=== PATIENT | female | born 2000 | race Caucasian/White ===

== ENCOUNTER 2023-03-17 12:05 | Emergency (ER) | payer BC, SELFPAY ==
[2023-03-17] VITALS (17 sets, daily range): BP systolic 86–111; BP diastolic 49–83; PULSE 74–88; RESP 17–33; TEMP 36.7; O2SAT 94–100; BMI 25.1
--- NOTE | 2023-03-17 12:12 | ECG_ITS ---
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
--- NOTE | 2023-03-17 12:15 | XR_ITS ---
The [address] [address] Patient Name: DORIS JOHNS MRN: [id number] date: 2000 Sex: F Assigned Patient Location: ER Current Patient Location: ED.MAIN Accession/Order Number: [id number] Exam Date: 03/17/2023 12:35 Report Date: 03/17/2023 12:57 At the request of: BG REID Procedure: XR chest 2V EXAM: XR chest 2V HISTORY: SYNCOPE COMPARISON: None TECHNIQUE: PA and lateral views of the chest were obtained. FINDINGS: Heart and mediastinal contours are unremarkable in appearance. No acute infiltrate or consolidations are seen. No obvious pneumothorax. Mild prominence of bronchovascular markings most likely artifactually created, correlate for possible mild bronchitis. Stabilizing rods and screws at the mid and lower thoracic levels extending to the upper lumbar spine. Mild convexity of the thoracic spine to the right. Powerpack noted on the left anteriorly. XR/XR chest 2V IMPRESSION: Mild prominence of bronchovascular markings most likely artifactually created, correlate for possible mild bronchitis. Electronically authenticated by: TIERA BUSTAMANTE Date: 03/17/2023 12:57
--- NOTE | 2023-03-17 12:17 | ED.GENADUL1 ---
HPI - General Adult General Chief complaint: Syncope Stated complaint: SYNCOPE Time Seen by Provider: 03/17/23 12:15 Source: patient Mode of arrival: Wheelchair Limitations: no limitations History of Present Illness HPI narrative: Patient is a 22-year-old female Who is presenting to the Emergency Room with chief complaint of a syncopal/near syncopal episode in the [place] after cardiology appointment today. Patient had a cardiology appointment today, patient was leaving the appointment walking in the [place] and had a near syncopal versus syncopal episode where she was slowly lowered to the ground. Patient was pale. She did not fall and hit her head. She has no headache, chest pain or shortness of breath. Patient was just placed on a 30 day event monitor. Patient is a college student. No recent head trauma. Patient stated that she did have abnormal dysfunctional uterine bleeding for a month, daily, but she missed a few days of her control pills and she waiting for new prescription to come in. However patient stated the bleeding was smaller amounts daily, not excessive daily to cause anemia. Patient has no urinary frequency or urgency or burning. Patient did not believe that she is . Patient's grandmother is at bedside, grandmother went to the appointment with her. Patient has no dull pain, nausea or vomiting or any other acute complaints this time. Patient 3-6 months ago starting having several passing out episodes for unknown reason. 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 Patient wouuld sometimes pass out from giving blood, but is become more frequent recently. All systems are negative except as noted/marked. All systems reviewed and otherwise negative. . Nurses note and vital signs reviewed and patient is not hypoxic. General: The patient appears well and in no apparent distress. Patient is resting comfortably on cart. Patient is not toxic, lethargic, or listless Skin: Warm, dry, no pallor noted. There is no rash noted. No petechiae, purpura. Head: Normocephalic, atraumatic Eye: Normal conjunctiva, no drainage, EOMI. PERRL Ears, Nose, Mouth, and Throat: oral mucosa is moist. Nares patent. Mouth without vesicles. Cardiovascular: Regular Rate and Rhythm, no murmur, gallop, rub Respiratory: Patient is in no distress, no accessory muscle use, lungs are clear to auscultation, no wheezing, rales or rhonchi Back: non-tender, no CVA tenderness bilaterally to percussion. No CT LS midline pain GI: soft, no tenderness to palpation, no masses appreciated. No rebound, guarding, or rigidity noted. No flank pain bilateral, No distention Musculoskeletal: Patient has full range of motion of all of the extremities, no motor, sensory, or focal neurological deficits Neurological: A&O x3, normal speech Psychiatric: Cooperative Related Data Allergies Allergy/AdvReac Type Severity Reaction Status Date / Time No Known Drug Allergies Allergy Verified 03/17/23 12:10 [facility] Social History Smoking status: Never smoker Exam Constitutional Vital Signs, click to edit/add: Last Vital Signs Temp 98.0 F 03/17/23 12:10 Pulse 78 03/17/23 14:01 Resp 18 03/17/23 14:01 BP 104/70 03/17/23 14:01 Pulse Ox 99 03/17/23 14:01 O2 Del Method Room Air 03/17/23 12:10 Course Vital Signs Vital signs: Vital Signs Blood Pressure 86/49 L 03/17/23 12:09 Temperature 98.0 F 03/17/23 12:10 Pulse Rate 78 03/17/23 14:01 Respiratory Rate 18 03/17/23 14:01 Blood Pressure 104/70 03/17/23 14:01 Pulse Oximetry 99 03/17/23 14:01 Oxygen Delivery Method Room Air 03/17/23 12:10 Medical Decision Making MDM Narrative Medical decision making narrative: When patient arrived, I did speak to the nurse practitioner, Dawit Foster NP. Patient just had a 30 day event monitor placed. Recommendations were of all testing were negative, patient will continue with outpatient testing and then follow-up with PCP and battery assembler plastic. Patient will have a tilt table test ordered as well, and patient will follow-up with the battery assembler plastic Dr. Pandya in 8 weeks. Patient thyroid-stimulating hormone was elevated, I did order a free T3 and a free T4 to help with patient's ongoing workup. Patient sees Dr. Norman. Patient is comfortable going home, she feels better after 1 L of IV fluid. Patient's orthostatics were negative. Patient does not have any significant signs of anemia. Patient will continue with outpatient testing. No questions at discharge. Patient goes back to school tomorrow. Lab Data Lab results reviewed: Yes I reviewed the patient's lab results Labs: Lab Results 03/17/23 Range/Units 12:13 WBC 11.0 (4.0-11.0) 10^3/uL RBC 4.50 (4.20-5.40) 10^6/uL Hgb 13.3 (12.0-16.0) g/dL Hct 40.7 (36.0-48.0) % MCV 90.4 (81.0-99.0) fL MCH 29.6 (26.7-34.0) pg MCHC 32.7 (29.9-35.2) g/dL RDW 12.1 (11.0-15.0) % Plt Count 408 (150-450) 10^3/uL MPV 10.0 (9.5-13.5) fL Seg Neuts % (Manual) 29.0 Lymphocytes % (Manual) 61.0 H (20.5-60.0) % Atypical Lymphs % (Man) 4.0 % Monocytes % (Manual) 5.0 (1.7-12.0) % Eosinophils % (Manual) 1.0 (0.9-7.0) % Basophils % (Manual) 0.0 L (0.2-2.0) % Neutrophils # (Manual) 3.19 (1.4-6.5) 10^3/uL Lymphocytes # (Manual) 6.71 H (1.20-3.80) 10^3/uL Abs Atypical Lymphs Man 0.44 Monocytes # (Manual) 0.55 (0.30-0.80) 10^3/uL Eosinophils # (Manual) 0.11 (0.00-0.70) 10^3/uL Basophils # (Manual) 0.00 (0.00-0.10) 10^3/uL D-Dimer <0.19 (<=0.59) mg/L FEU Sodium 140 (136-145) mmol/L Potassium 3.3 L (3.5-5.1) mmol/L Chloride (98-107) mmol/L Carbon Dioxide 27.2 (21.0-32.0) mmol/L Anion Gap 13.1 BUN 14.0 (7.0-18.0) mg/dL Creatinine 0.74 (0.55-1.02) mg/dL Est GFR ( Amer) >60 (>=60) Est GFR (Non-Af Amer) >60 (>=60) BUN/Creatinine Ratio 18.9 Glucose 108 H (74-106) mg/dL Calcium 9.4 (8.5-10.1) mg/dL Total Bilirubin 0.4 (0.2-1.0) mg/dL AST 23 (15-37) U/L ALT 33 (14-59) U/L Alkaline Phosphatase 78 (46-116) U/L Troponin I High Sens 10.4 (4.0-51.3) pg/mL NT-Pro-B Natriuret Pep 25.0 (<=450.0) pg/mL Total Protein 7.0 (6.4-8.2) g/dL Albumin 3.5 (3.4-5.0) g/dL Globulin 3.5 g/dL Albumin/Globulin Ratio 1.0 TSH 3.820 H (0.358-3.740) uIU/mL Free T4 1.04 (0.76-1.46) ng/dL Free T3 3.51 (2.18-3.98) pg/mL Education on elevated thyroid-stimulating hormone and the possibility of euthyroid was discussed. Patient's free T3 and free T4 not back yet prior to discharge. Patient was aware to follow-up with PCP for additional testing and follow-up on thyroid studies. ECG Data Attestation: I personally reviewed and interpreted this ECG as follows: (EKG interpretation. Normal sinus rhythm at 78 beats a minute. Normal axis deviation. No acute ST elevation, no acute ectopy. QTC of 441) Discharge Plan Discharge Chief Complaint: Syncope Clinical Impression: Vasovagal syncope, Dehydration, mild, Hypokalemia Patient Disposition: Home, Self-Care Time of Disposition Decision: 14:16 Condition: Fair Instructions: Dehydration (ED), Potassium Content of Foods List (ED), Hypokalemia (ED), Syncope (ED), Tilt Table Test (DC) Additional Instructions: Continue to increase fluids at home, Gatorade or Powerade. Started taking woman's One-A-Day multivitamin Continue following up with cardiology. Stand Alone Forms: Portal Instructions Referrals: Bobbi Norman MD [Primary Care Provider] - 1 week Discharge Date/Time: 03/17/23 14:33
[2023-03-17] MEDS: 0.9 % SODIUM CHLORIDE 1,000 ML 1000 ML IV (12:29)
[2023-03-17 12:44] LABS: Hematocrit 40.7 % (36.0-48.0); Hemoglobin 13.3 g/dL (12.0-16.0); Mean Corpuscular HGB Conc 32.7 g/dL (29.9-35.2); Mean Corpuscular Hemoglobin 29.6 pg (26.7-34.0); Mean Corpuscular Volume 90.4 fL (81.0-99.0); Platelet Count 408 10^3/uL (150-450); Red Cell Distribution Width 12.1 % (11.0-15.0)
[2023-03-17 13:04] LABS: D Dimer <0.19 mg/L FEU (<=0.59)
[2023-03-17 13:08] LABS: Atypical Lymphocytes Abs Man 0.44; Eosinophils Absolute Manual 0.11 10^3/uL (0.00-0.70); Lymphocytes Absolute Manual 6.71 10^3/uL (1.20-3.80); Monocytes Absolute Manual 0.55 10^3/uL (0.30-0.80); Segmented Neut Absolute Manual 3.19 10^3/uL (1.4-6.5)
[2023-03-17 13:13] LABS: Alanine Aminotransferase 33 U/L (14-59); Albumin Level 3.5 g/dL (3.4-5.0); Alkaline Phosphatase 78 U/L (46-116); Aspartate Amino Transferase 23 U/L (15-37); BUN Creatinine Ratio 18.9; Bilirubin Total 0.4 mg/dL (0.2-1.0); Calcium 9.4 mg/dL (8.5-10.1); Carbon Dioxide 27.2 mmol/L (21.0-32.0); Estimated GFR (African America >60 (>=60); Estimated GFR (Non-African Ame >60 (>=60); Globulin 3.5 g/dL; Glucose 108 mg/dL (74-106); Potassium 3.3 mmol/L (3.5-5.1); Sodium 140 mmol/L (136-145); Troponin I High Sensitivity 10.4 pg/mL (4.0-51.3)
[2023-03-17] MEDS: POTASSIUM BICARBONATE/CIT 25 MEQ TABLET EFF 50 MEQ PO (14:00)
[2023-03-17 14:31] LABS: Anion Gap 13.1
[2023-03-17 16:00] LABS: Free T3 3.51 pg/mL (2.18-3.98)
[2023-03-17 16:39] LABS: Free T4 1.04 ng/dL (0.76-1.46)
== END 2023-03-17 14:33 | disposition home or self-care (01) ==
PROVIDERS: Emergency Provider Emergency Medicine; PCP Family Medicine
DX: R55 Syncope and collapse (principal); E86.0 Dehydration; E87.6 Hypokalemia
CPT/HCPCS: 36415; 71046; 80053; 83880; 84439; 84443; 84481; 84484; 85027; 85378; 93005; 96360; 99284

== ENCOUNTER 2023-03-19 20:06 | Outpatient (REF) | payer BC, SELFPAY ==
--- OUTSIDE RECORDS SUMMARY | 2023-03-19 20:10 | XMS_ITS | CCD ---
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 migraine without aura and without status migrainosus; Family history of migraine. FINDINGS: INTRACRANIAL STRUCTURES/VENTRICLE S: There is no acute infarct. No mass effect or midline shift. No evidence of an acute intracranial hemorrhage. The ventricles and sulci are normal in size and configuration. The sellar/suprasellar regions appear unremarkable. The normal signal voids within the major intracranial vessels appear maintained. ORBITS: The visualized portion of the orbits demonstrate no acute abnormality. SINUSES: Mild diffuse paranasal sinus disease is identified. The mastoid air cells are well pneumatized. BONES/SOFT TISSUES: The bone marrow signal intensity appears normal. The soft tissues demonstrate no acute abnormality. IMPRESSION: No acute intracranial abnormality. Mild diffuse paranasal sinus disease. [place] Lupus Anticoagulanton 2019 Dilute Ham Viper Negative Normal NLUP [facility] Comment on above: Performed By: #### C BC, SED, CP, TSH #### [facility] [address] [place] [address] Plastic Roller: Ozzy Young MD #### RA, B12FOL, TREP, ANASCX, LUPPRO #### [facility] [employer] [address] [place] [address] [phone] Plastic Roller: Ozzy Young MD Lupus Anticoagulanton 2019 Antiphospholipid IgA 0.4 APU Normal <12 [facility] Comment on above: Result Comment: Reference Range: 12 - 15 Equivocal >15 Positive Performed By: #### C BC, SED, CP, TSH #### [facility] [address] [place] [address] Plastic Roller: Ozzy Young MD #### RA, B12FOL, TREP, ANASCX, LUPPRO #### [facility] [employer] [address] [place] [address] [phone] Plastic Roller: Ozzy Young MD Antiphospholipid IgG 6.0 GPU Normal <20 [facility] Comment on above: Result Comment: Reference Range: 20.0 - 29.9 Low Positive 30.0 - 79.9 Moderate Positive >79.9 High Positive Performed By: #### C BC, SED, CP, TSH #### [facility] [address] [place] [address] Plastic Roller: Ozzy Young MD #### RA, B12FOL, TREP, ANASCX, LUPPRO #### [address] [phone] Plastic Roller: Ozzy Young MD Antiphospholipid IgM 4.9 MPU Normal <20 [facility] Comment on above: Result Comment: Reference Range: 20.0 - 29.9 Low Positive 30.0 - 79.9 Moderate Positive >79.9 High Positive Performed By: #### C BC, SED, CP, TSH #### [facility] [address] [place] [address] Plastic Roller: Ozzy Young MD #### RA, B12FOL, TREP, ANASCX, LUPPRO #### [address] [phone] Plastic Roller: Ozzy Young MD ELVIA Screenon 12-02-2019 ELVIA Screen Negative Normal NEG [facility] Comment on above: Result Comment: This test was run on the [employer] ELVIA test system. The system provides ten test results (HEp-2NA, dsDNA, SSA, SSB, Sm, PADDOCK JUDGE, Scl-70, Taryn-1, Centromere and Histone analytes) from a single patient sample. A negative ELVIA screen indicates that the specimen was negative for all ten markers. Performed By: #### C BC, SED, CP, TSH #### [facility] [address] [place] [address] Plastic Roller: Ozzy Young MD #### RA, B12FOL, TREP, ANASCX, LUPPRO #### [address] [phone] Plastic Roller: Ozzy Young MD Lupus Anticoagulanton 2019 aPTT Coag (Bld) [Time] 30.2 s Normal 20.5-30.5 [facility] Comment on above: Result Comment: IV Heparin Therapy Range: 48.6-77.8 Performed By: #### C MAURICIO JENNINGS, CP, TSH #### [facility] [address] [place] [address] Plastic Roller: Ozzy Young MD #### RA, B12FOL, TREP, ANASCX, LUPPRO #### [facility] [address] [place] [address] [phone] Plastic Roller: Ozzy Young MD INR Coag (PPP) [Relative time] 1.0 {INR} Normal [facility] Comment on above: Result Comment: Therapeutic Range: Moderate Anticoagulant Intensity: INR = 2.0-3.0 High Anticoagulant Intensity: INR = 2.5-3.5 Performed By: #### C MAURICIO JENNINGS, CP, TSH #### [facility] [address] [place] [address] Plastic Roller: Ozzy Young MD #### RA, B12FOL, TREP, ANASCX, LUPPRO #### [facility] [employer] [address] [place] [address] Plastic Roller: Ozzy Young MD PT Coag (PPP) [Time] 10.5 s Normal 9.0-12.0 [facility] Comment on above: Performed By: #### C MAURICIO JENNINGS, CP, TSH #### [facility] [address] [place] [address] Plastic Roller: Ozzy Young MD #### RA, B12FOL, TREP, ANASCX, LUPPRO #### [facility] [employer] [address] [place] [address] [phone] Plastic Roller: Ozzy Young MD T.pallidum Ab Screenon 12-01 T.pallidum Ab Screen NONREACTIVE Normal [facility] Comment on above: Result Comment: T. pallidum antibodies are not detected. There is no serological evidence of infection with T. pallidum (early primary syphilis cannot be excluded). Retest in 2-4 weeks if syphilis is clinically suspect. Performed By: #### C BC, SED, CP, TSH #### [facility] [address] [place] [address] Plastic Roller: Ozzy Young MD #### RA, B12FOL, TREP, ANASCX, LUPPRO #### [address] [address] Plastic Roller: Ozzy Young MD B12/Folate Panelon 0 Cobalamin (Vitamin B12) [Mass/Vol] 632 pg/mL Normal 232-1245 [facility] Comment on above: Performed By: #### C DICK, SED, CP, TSH #### [facility] [address] [place] [address] Plastic Roller: Ozzy Young MD #### RA, B12FOL, TREP, ANASCX, LUPPRO #### [address] [address] Plastic Roller: Ozzy Young MD Folic Acid 12.8 ng/mL Normal >4.8 [facility] Comment on above: Performed By: #### Eliceo BC, SED, CP, TSH #### [facility] [address] [place] [address] Plastic Roller: Ozzy Young MD #### RA, B12FOL, TREP, ANASCX, LUPPRO #### [address] [address] Plastic Roller: Ozzy Young MD CBCon 12-01-2019 Erythrocyte distribution width (RBC) [Ratio] 12.1 % Normal 11.8-14.4 [facility] Comment on above: Performed By: #### C BC, SED, CP, TSH #### [facility] [address] [place] [address] Plastic Roller: Ozzy Young MD #### RA, B12FOL, TREP, ANASCX, LUPPRO #### [address] [phone] Plastic Roller: Ozzy Young MD Hematocrit (Bld) [Volume fraction] 43.0 % Normal 36.3-47.1 [facility] Comment on above: Performed By: #### C BC, SED, CP, TSH #### [facility] [address] [place] [address] Plastic Roller: Ozzy Young MD #### RA, B12FOL, TREP, ANASCX, LUPPRO #### [address] [phone] Plastic Roller: Ozzy Young MD Hemoglobin (Bld) [Mass/Vol] 13.8 g/dL Normal 11.9-15.1 [facility] Comment on above: Performed By: #### C BC, SED, CP, TSH #### [facility] [address] [place] [address] Plastic Roller: Ozzy Young MD #### RA, B12FOL, TREP, ANASCX, LUPPRO #### [address] [phone] Plastic Roller: Ozzy Young MD MCH (RBC) [Entitic mass] 29.8 pg Normal 25.2-33.5 [facility] Comment on above: Performed By: #### C BC, SED, CP, TSH #### [facility] [address] [place] [address] Plastic Roller: Ozzy Young MD #### RA, B12FOL, TREP, ANASCX, LUPPRO #### [address] [phone] Plastic Roller: Ozzy Young MD MCHC (RBC) [Mass/Vol] 32.1 g/dL Normal 25.2-33.5 [facility] Comment on above: Performed By: #### C BC, SED, CP, TSH #### [facility] [address] [place] [address] Plastic Roller: Ozzy Young MD #### RA, B12FOL, TREP, ANASCX, LUPPRO #### [address] [phone] Plastic Roller: Ozzy Young MD MCV (RBC) [Entitic vol] 92.9 fL Normal 82.6-102.9 [facility] Comment on above: Performed By: #### C BC, SED, CP, TSH #### [facility] [address] [place] [address] Plastic Roller: Ozzy Young MD #### RA, B12FOL, TREP, ANASCX, LUPPRO #### [address] [phone] Plastic Roller: Ozzy oYung MD NRBC Automated 0.0 per 100 WBC Normal 0.0 [facility] Comment on above: Performed By: #### C BC, SED, CP, TSH #### [facility] [address] [place] [address] Plastic Roller: Ozzy Young MD #### RA, B12FOL, TREP, ANASCX, LUPPRO #### [address] [phone] Plastic Roller: Ozzy Young MD Platelet mean volume (Bld) [Entitic vol] 9.2 fL Normal 8.1-13.5 [facility] Comment on above: Performed By: #### C BC, SED, CP, TSH #### [facility] [address] [place] [address] Plastic Roller: Ozzy Young MD #### RA, B12FOL, TREP, ANASCX, LUPPRO #### [facility] [address] [place] [address] Plastic Roller: Ozzy Young MD Platelets (Bld) [#/Vol] 327 10*3/uL Normal 138-453 [facility] Comment on above: Performed By: #### C BC, SED, CP, TSH #### [facility] [address] [place] [address] Plastic Roller: Ozzy Young MD #### RA, B12FOL, TREP, ANASCX, LUPPRO #### [address] [address] Plastic Roller: Ozzy Young MD RBC (Bld) [#/Vol] 4.63 10*6/uL Normal 3.95-5.11 [facility] Comment on above: Performed By: #### C BC, SED, CP, TSH #### [facility] [address] [place] [address] Plastic Roller: Ozzy Young MD #### RA, B12FOL, TREP, ANASCX, LUPPRO #### [address] [address] Plastic Roller: Ozzy Young MD WBC (Bld) [#/Vol] 8.1 10*3/uL Normal 4.5-13.5 [facility] Comment on above: Performed By: #### C BC, SED, CP, TSH #### [facility] [address] [place] [address] Plastic Roller: Ozzy Young MD #### RA, B12FOL, TREP, ANASCX, LUPPRO #### [place] [address] [place] [address] Plastic Roller: Ozzy Young MD Erythrocyte distribution width (RBC) [Ratio] 12.1 % 11.8 - 14.4 % [place] Hematocrit (Bld) [Volume fraction] 43.0 % 36.3 - 47.1 % [place] Hemoglobin (Bld) [Mass/Vol] 13.8 g/dL 11.9 - 15.1 g/dL [place] MCH (RBC) [Entitic mass] 29.8 pg 25.2 - 33.5 pg [place] MCHC (RBC) [Mass/Vol] 32.1 g/dL 25.2 - 33.5 g/dL [place] MCV (RBC) [Entitic vol] 92.9 fL 82.6 - 102.9 fL [place] Platelet mean volume (Bld) [Entitic vol] 9.2 fL 8.1 - 13.5 fL [place] Platelets (Bld) [#/Vol] 327 10*3/uL [place] RBC (Bld) [#/Vol] 4.63 10*6/uL 3.95 - 5.1 1 m/uL [place] WBC (Bld) [#/Vol] 8.1 10*3/uL [place] WBC (Bld) [#/Vol] 0.0 10*3/uL 0.0 per 100 WBC M [place] Comp Metabolic Profon 2019 (cont.) Normal [facility] Comment on above: Result Comment: Aver age GFR for <20 years old not available. Chronic Kidney Disease: <60 mL/min/1.73sq m Kidney failure: <15 mL/min/1.73sq m eGFR calculated using average adult body mass. Additional eGFR calculator available at: http://www.[employer].Pembe Panjur/multiple_crcl_2012.htm Performed By: #### C BC, SED, CP, TSH #### [facility] [address] [place] [address] Plastic Roller: Ozzy Young MD #### RA, B12FOL, TREP, ANASCX, LUPPRO #### [facility] [employer] [address] [place] [address] Plastic Roller: Ozzy Young MD Albumin [Mass/Vol] 4.6 g/dL Normal 3.5-5.2 [facility] Comment on above: Performed By: #### C BC, SED, CP, TSH #### [facility] [address] [place] [address] Plastic Roller: Ozzy Young MD #### RA, B12FOL, TREP, ANASCX, LUPPRO #### [address] [address] Plastic Roller: Ozzy Young MD Albumin/Globulin [Mass ratio] 1.7 {ratio} Normal 1.0-2.5 [facility] Comment on above: Performed By: #### C BC, SED, CP, TSH #### [facility] [address] [place] [address] Plastic Roller: Ozzy Young MD #### RA, B12FOL, TREP, ANASCX, LUPPRO #### [address] [phone] Plastic Roller: Ozzy Young MD Alkaline Phos 79 U/L Normal 35-104 [place] Comment on above: Performed By: #### C BC, SED, CP, TSH #### [facility] [address] [place] [address] Plastic Roller: Ozzy Young MD #### RA, B12FOL, TREP, ANASCX, LUPPRO #### [address] [phone] Plastic Roller: Ozzy Young MD ALT [Catalytic activity/Vol] 16 U/L Normal 5-33 [facility] Comment on above: Performed By: #### C BC, SED, CP, TSH #### [facility] [address] [place] [address] Plastic Roller: Ozzy Young MD #### RA, B12FOL, TREP, ANASCX, LUPPRO #### [address] [phone] Plastic Roller: Ozzy Young MD Anion gap [Moles/Vol] 9 mmol/L Normal 9-17 [facility] Comment on above: Performed By: #### C BC, SED, CP, TSH #### [facility] [address] [place] [address] Plastic Roller: Ozzy Young MD #### RA, B12FOL, TREP, ANASCX, LUPPRO #### [address] [phone] Plastic Roller: Ozzy Young MD AST [Catalytic activity/Vol] 18 U/L Normal <32 [facility] Comment on above: Performed By: #### C BC, SED, CP, TSH #### [facility] [address] [place] [address] Plastic Roller: Ozzy Young MD #### RA, B12FOL, TREP, ANASCX, LUPPRO #### [address] [address] Plastic Roller: Ozzy Young MD Bilirubin Ql (U) 0.24 mg/dL Low 0.3-1.2 [facility] Comment on above: Performed By: #### C BC, SED, CP, TSH #### [facility] [address] [place] [address] Plastic Roller: Ozzy Young MD #### RA, B12FOL, TREP, ANASCX, LUPPRO #### [address] [phone] Plastic Roller: Ozzy Young MD BUN/CRE Ratio 21 High 9-20 [place] Comment on above: Performed By: #### C BC, SED, CP, TSH #### [facility] [address] [place] [address] Plastic Roller: Ozzy Young MD #### RA, B12FOL, TREP, ANASCX, LUPPRO #### [address] [phone] Plastic Roller: Ozzy Young MD Calcium [Mass/Vol] 10.1 mg/dL Normal 8.6-10.4 [facility] Comment on above: Performed By: #### C BC, SED, CP, TSH #### [facility] [address] [place] [address] Plastic Roller: Ozzy Young MD #### RA, B12FOL, TREP, ANASCX, LUPPRO #### [address] [phone] Plastic Roller: Ozzy Young MD Chloride [Moles/Vol] 102 mmol/L Normal 98-107 [facility] Comment on above: Performed By: #### C BC, SED, CP, TSH #### [facility] [address] [place] [address] Plastic Roller: Ozzy Young MD #### RA, B12FOL, TREP, ANASCX, LUPPRO #### [address] [phone] Plastic Roller: Ozzy Young MD CO2 [Moles/Vol] 27 mmol/L Normal 20-31 [facility] Comment on above: Performed By: #### C BC, SED, CP, TSH #### [facility] [address] [place] [address] Plastic Roller: Ozzy Young MD #### RA, B12FOL, TREP, ANASCX, LUPPRO #### [address] [phone] Plastic Roller: Ozzy Young MD Creatinine [Mass/Vol] 0.61 mg/dL Normal 0.50-0.90 [facility] Comment on above: Performed By: #### C BC, SED, CP, TSH #### [facility] [address] [place] [address] Plastic Roller: Ozzy Young MD #### RA, B12FOL, TREP, ANASCX, LUPPRO #### [address] [phone] Plastic Roller: Ozzy Young MD GFR,non Amer Pediatric GFR requires additional information. Refer to NKDEP website for Normal >60 [facility] Comment on above: Result Comment: calc ulator. Performed By: #### C BC, SED, CP, TSH #### [facility] [address] [place] [address] Plastic Roller: Ozzy Young MD #### RA, B12FOL, TREP, ANASCX, LUPPRO #### [address] [phone] Plastic Roller: Ozzy Young MD Glucose [Mass/Vol] 93 mg/dL Normal 70-99 [facility] Comment on above: Performed By: #### C BC, SED, CP, TSH #### [facility] [address] [place] [address] Plastic Roller: Ozzy Young MD #### RA, B12FOL, TREP, ANASCX, LUPPRO #### [address] [phone] Plastic Roller: Ozzy Young MD Potassium [Moles/Vol] 4.3 mmol/L Normal 3.7-5.3 [facility] Comment on above: Performed By: #### C BC, SED, CP, TSH #### [facility] [address] [place] [address] Plastic Roller: Ozzy Young MD #### RA, B12FOL, TREP, ANASCX, LUPPRO #### [address] [phone] Plastic Roller: Ozzy Young MD Protein [Mass/Vol] 7.3 g/dL Normal 6.4-8.3 [facility] Comment on above: Performed By: #### C BC, SED, CP, TSH #### [facility] [address] [place] [address] Plastic Roller: Ozzy Young MD #### RA, B12FOL, TREP, ANASCX, LUPPRO #### [address] [phone] Plastic Roller: Ozzy Young MD Sodium [Moles/Vol] 138 mmol/L Normal 135-144 [facility] Comment on above: Performed By: #### C BC, SED, CP, TSH #### [facility] [address] [place] [address] Plastic Roller: Ozzy Young MD #### RA, B12FOL, TREP, ANASCX, LUPPRO #### [address] [phone] Plastic Roller: Ozzy Young MD Urea nitrogen [Mass/Vol] 13 mg/dL Normal 6-20 [facility] Comment on above: Performed By: #### C BC, SED, CP, TSH #### [facility] [address] [place] [address] Plastic Roller: Ozzy Young MD #### RA, B12FOL, TREP, ANASCX, LUPPRO #### [address] [phone] Plastic Roller: Ozzy Young MD GFR, Amer NOT REPORTED Normal >60 [facility] Comment on above: Performed By: #### C BC, SED, CP, TSH #### [facility] [address] [place] [address] Plastic Roller: Ozzy Young MD #### RA, B12FOL, TREP, ANASCX, LUPPRO #### [facility] [address] [place], [place] [phone] Plastic Roller: Ozzy Young MD Staging: NOT REPORTED Normal [facility] Comment on above: Performed By: #### C BC, SED, CP, TSH #### [facility] [address] [place] [address] Plastic Roller: Ozzy Young MD #### RA, B12FOL, TREP, ANASCX, LUPPRO #### [facility] [address] [place], [place] [phone] Plastic Roller: Ozzy Young MD Comprehensive Metabolic Pane [facility] 12-01-2019 Albumin [Mass/Vol] 4.6 g/dL 3.5 - 5.2 g/dL [place] Albumin/Globulin [Mass ratio] 1.7 {ratio} [place] ALP [Catalytic activity/Vol] 79 U/L 35 - 104 U/L [place] ALT [Catalytic activity/Vol] 16 U/L 5 - 33 U/L [place] Anion gap [Moles/Vol] 9 mmol/L 9 - 17 mmol/L [place] AST [Catalytic activity/Vol] 18 U/L <32 [place] Bilirubin Ql (U) 0.24 mg/dL Low 0.3 - 1.2 mg/dL [place] Bun/Cre Ratio 21 High [place] Calcium [Mass/Vol] 10.1 mg/dL 8.6 - 10. 4 mg/dL [place] Chloride [Moles/Vol] 102 mmol/L 98 - 107 mmol/L [place] CO2 [Moles/Vol] 27 mmol/L 20 - 31 mmol/L [place] Creatinine [Mass/Vol] 0.61 mg/dL 0.5 - 0.9 mg/d L [place] GFR NOT REPORTED >60 mL/min [place] GFR Non- Pediatric GFR requires additional information. Refer to NKDEP website for calculator. >60 mL/min [place] GFR/1.73 sq M predicted among non-blacks MDRD (S/P/Bld) [Vol rate/Area] [place] Comment on above: Average GFR for <20 years old not available. Chronic Kidney Disease: <60 mL/min/1.73sq m Kidney failure: <15 mL/min/1.73sq m eGFR calculated using average adult body mass. Additional eGFR calculator available at: http://www.[employer]/multiple_crcl_2012.htm GFR/1.73 sq M predicted among non-blacks MDRD (S/P/Bld) [Vol rate/Area] NOT REPORTED [place] Glucose [Mass/Vol] 93 mg/dL 70 - 99 mg/dL [place] Interpretation and review of laboratory results Abnormal [place] Potassium [Moles/Vol] 4.3 mmol/L 3.7 - 5.3 mmol/L [place] Protein [Mass/Vol] 7.3 g/dL 6.4 - 8.3 g/dL [place] Sodium [Moles/Vol] 138 mmol/L 135 - 144 mmol/L [place] Urea nitrogen [Mass/Vol] 13 mg/dL 6 - 20 mg/dL [place] Lupus Anticoagulanton 2019 Lupus Anticoagulant NOT REPORTED Normal [facility] Comment on above: Performed By: #### C BC, SED, CP, TSH #### [facility] [address] [place] [address] Plastic Roller: Ozzy Young MD #### RA, B12FOL, TREP, ANASCX, LUPPRO #### [facility] [address] [place] [address] Plastic Roller: Ozzy Young MD RA Screenon 12-01-2019 RA Screen <10 Normal <14 [facility] Comment on above: Performed By: #### C BC, SED, CP, TSH #### [facility] [address] [place] [address] Plastic Roller: Ozzy Young MD #### RA, B12FOL, TREP, ANASCX, LUPPRO #### [facility] [address] [place], [place] [phone] Plastic Roller: Ozzy Young MD Rheumatoid Factoron 12-01-19 20 Rheumatoid Factor <10 <14 IU/mL [place] Sedimentation Rateon 020 Sedimentation Rate 4 mm Normal 0-20 [facility] Comment on above: Performed By: #### C BC, SED, CP, TSH #### [facility] [address] [place] [address] Plastic Roller: Ozzy Young MD #### RA, B12FOL, TREP, ANASCX, LUPPRO #### [facility] [employer] [address] [place], [place] [phone] Plastic Roller: Ozzy Young MD Sed Rate 4 mm 0 - 20 mm [place] T. pallidum Abon 12-01-2019 T. pallidum, IgG NONREACTIVE NONREACTIVE [place] Comment on above: T. pallidum antibodies are not detected. There is no serological evidence of infection with T. pallidum (early primary syphilis cannot be excluded). Retest in 2-4 weeks if syphilis is clinically suspect. TSH without Reflexon 020 TSH Qn 1.09 m[IU]/L [place] Thyroid Stim. Horm.on 2019 TSH Qn 1.09 m[IU]/L Normal 0.30-5.00 [facility] Comment on above: Performed By: #### C BC, SED, CP, TSH #### [facility] [address] [place] [address] Plastic Roller: Ozzy Young MD #### RA, B12FOL, TREP, ANASCX, LUPPRO #### [facility] [address] [place] [phone] Plastic Roller: Ozzy Young MD Vitamin B12 & Folateon 11-30 Cobalamin (Vitamin B12) [Mass/Vol] 632 pg/mL 232 - 1245 pg/mL [place] Folate 12.8 ng/mL >4.8 [place] Ambulatory Clinical Summaryo n 10-28-2019 Ambulatory Clinical Summary {[id number] Normal [facility] Pediatrics Office/Clinic Not alyssa 10-28-2019 Pediatrics Office/Clinic Note Chief Complaint Patient in office with mom for recheck sinusitis History of Present Illness Doris is here for a recheck of sinusitis dx 2 weeks ago and treated with Augmentin. She is still coughing and having headaches. She has finished the oral antibiotics. Mom states the coughing got worse wit ht he antibiotic. She is taking Zyrtec daily without any improvement. She has been tested for COVID 19 and was negative. No abdominal pain or vomiting. NO sore throat. Coughing has been ongoing for the past year; Headaches for the past month or so. Review of Systems ROS - Provider CONSTITUTIONAL: Negative for fatigue negative for fevers EYES: Negative for eye drainage E/N/T: positive for nasal congestion, runny nose, negative for sore throat RESPIRATORY: positive for acute cough, negative for dyspnea and wheezing. Physical Exam Vitals & Measurements T: 36.4 ?C (Temporal Artery) HR: 72(Peripheral) RR: 18 BP: 122/70 HT: 169 cm HT: 169.0 cm WT: 67.9 kg WT: 67.9 kg BMI: 23.77 GENERAL: The patient is well developed, well nourished, in no apparent distress. EYES: lids and conjunctiva are normal; pupils and irises are normal E/N/T: normal external auditory canals and tympanic membranes; Nose: mucopurulent nasal discharge Lips, Teeth and Gums: normal. Oropharynx: normal mucosa, palate, and posterior pharynx; NECK: Neck is supple with full range of motion; RESPIRATORY: normal respiratory rate and pattern with no distress; normal breath sounds with no rales, rhonchi, wheezes or rubs; CARDIOVASCULAR: normal rate and rhythm without murmurs; normal S1 and S2 heart sounds with no S3, S4, rubs, or clicks. SKIN: No ulcerations, lesions or rashes are noted. NEUROLOGIC: Normal for age Assessment/Plan 1. Acute maxillary sinusitis, unspecified (J01.00: Acute maxillary sinusitis, unspecified) start omnicef 300 mg po bid for 14 days; continue Zyrtec and Flonase Ordered: cefdinir, 300 mg = 1 cap(s), Oral, q12hr, X 14 day(s), # 28 cap(s), Refills(s) 0, Pharmacy: [facility]/pharmacy #[id number], 169, cm, 10/28/19 10:38:00 EDT, Height/Length Dosing, 67.9, kg, 10/28/19 10:38:00 EDT, Weight Dosing 2. Chronic cough (R05: Cough) start Flovent 110 2 puffs bid Ordered: fluticasone, 2 puff(s), Inhalation, BID, 12 gram, Refill(s) 2, [id number], 169, cm, 10/28/19 10:38:00 EDT, Height/Length Dosing, 67.9, kg, 10/28/19 10:38:00 EDT, Weight Dosing Follow-up With When Contact Information MILLIS Ileana CERVANTES In 2 weeks Additional Instructions: recheck sinusitis and chronic cough--TELEHEALTH Problem List/Past Medical History Ongoing Acne Bipolar I disorder, mild, current or most recent episode depressed, with psychotic features, with mixed features and anxiety distress Chronic cough Headache High risk medication use Left knee pain Recurrent subluxation of left patella Scoliosis Sinusitis Historical Skin cyst Procedure/Surgical History Lumbosacral spinal fusion (03/01/2018), Histology tonsillectomy. Medications cefdinir 300 mg Cap, 300 mg= 1 cap(s), Oral, q12hr Flovent HFA 110 Inhaler, 2 puff(s), Inhalation, BID, 2 refills fluticasone 0.05 mg/inh Nasal [place], 1 spray(s), Nasal, Daily hydrOXYzine hydrochloride 25 mg Tab, 25 mg= 1 tab(s), Oral, BID, PRN Lamictal 200 mg Tab, 200 mg= 1 tab(s), Oral, Daily, 5 refills Seroquel 300 mg oral tablet, 300 mg= 1 tab(s), Oral, Once a day (at bedtime), 5 refills Transderm-Scop 1.5 mg Patch-ER, 1 patch(es), Topical, q72hr, PRN Zyrtec, Daily Allergies No Known Allergies Social History Alcohol - Denies Alcohol Use, 08/16/2018 Employment/School Student, 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 Living situation: Home/Independent., 09/20/2018 Substance Abuse - Denies Substance Abuse, 08/16/2018 Tobacco - Denies Tobacco Use, 08/16/2018 Never (less than 100 in lifetime) Tobacco Use:. Never Smokeless Tobacco Use:. Household tobacco concerns: No., 02/24/2019 Family History ADHD - Attention deficit disorder with hyperactivity: Brother. Anxiety: Mother. Bipolar 1 disorder: Father. Immunizations Vaccine Date Status Comments meningococcal group B vaccine 10/14/2019 Given hepatitis A pediatric vaccine 10/18/2018 Given meningococcal group B vaccine 10/18/2018 Given influenza virus vaccine, inactivated 03/08/2018 Recorded hepatitis A adult vaccine 10/15/2017 Recorded meningococcal conjugate vaccine 10/15/2017 Recorded influenza virus vaccine, inactivated 02/01/2015 Recorded influenza virus vaccine, inactivated 12/14/2013 Recorded human papillomavirus vaccine 11/01/2013 Recorded influenza virus vaccine, inactivated 12/09/2012 Recorded human papillomavirus vaccine 12/09/2012 Recorded meningococcal conjugate vaccine 12/09/2012 Recorded tetanus-diphtheria toxoids 12/09/2012 Recorded influenza virus vaccine, inactivated 01/16/2012 Recorded influenza virus vaccine, inactivated 1 (more content not included)... Normal [facility] Ambulatory Clinical Summaryo n 10-17-2019 Ambulatory Clinical Summary {[id number]}CD:[id number] Normal [facility] Ambulatory Clinical Summaryo n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
[2023-03-24 10:12] LABS: Age Gdln ACOG Testing Note (.); IGP, rfx Aptima HPV ASCU Note (.)
== END 2023-03-19 20:07 | disposition home or self-care (01) ==
LOC: LAB 20:06
PROVIDERS: PCP Family Medicine; Visit Provider Physician Assistant
DX: Z01.419 Encounter for gynecological examination (general) (routine) without abnormal findings (principal)
CPT/HCPCS: G0145

== ENCOUNTER 2023-06-11 13:40 | Emergency (ER) | payer BC, SELFPAY ==
[2023-06-11] VITALS (10 sets, daily range): BP systolic 112–157; BP diastolic 64–96; PULSE 112–138; TEMP 37.9–38.4; O2SAT 98–100; BMI 25.1
--- NOTE | 2023-06-11 14:13 | ED.GENADUL1 ---
HPI HPI - General Adult General Chief complaint: Fever Stated complaint: SHORTNESS OF BREATH/CHEST PAIN Time Seen by Provider: 06/11/23 13:57 Source: patient and family Mode of arrival: walk-in Limitations: no limitations History of Present Illness HPI narrative: 22 year old female presents to the ED for cough, SOB, chills, sweats, fever, fatigue, body aches. Onset was yesterday. Reports nausea. Denies emesis, diarrhea, dizziness, sore throat, ear pain. Denies chance of . She took Motrin at 0800 this morning. She is accompanied by family. The patient presented febrile. She reported she has been having issues with tachycardia and is being worked up by cardiology. Related Data Previous Rx's ?Medication ?Instructions ?Recorded cephalexin 500 mg capsule 500 mg PO BID 5 days #10 caps 06/11/23 Allergies Allergy/AdvReac Type Severity Reaction Status Date / Time No Known Drug Allergies Allergy Verified 03/17/23 12:10 Opioid HPI Opioid Management Most Recent Opioid Data: Last Pain Scale 7 06/11/23 14:23 Last MAR Pain Assessment 06/11/23 14:23 Review of Systems ROS Constitutional Reports: fever, chills and fatigue Eyes Denies: change in vision Ears, nose, mouth, and throat Denies: throat pain, neck pain or throat swelling Cardiovascular Denies: chest pain or edema Respiratory Reports: shortness of breath and cough; Denies: wheezing or stridor Gastrointestinal Reports: nausea; Denies: abdominal pain, vomiting or diarrhea Genitourinary Denies: painful urination Musculoskeletal Reports: muscle cramps; Denies: back pain or neck pain Integumentary/Breast Denies: rash or itching Neurological Reports: headache; Denies: numbness in extremities or weakness in extremities PFSH PFSH Social History Smoking status: Never smoker Exam Constitutional Vital Signs, click to edit/add: Last Vital Signs Temp 100.2 F 06/11/23 15:12 Pulse 112 H 06/11/23 16:15 Resp 18 06/11/23 13:45 BP 112/64 06/11/23 15:00 Pulse Ox 98 06/11/23 15:00 O2 Del Method Room Air 06/11/23 13:45 Common normals: no apparent distress and oriented x3 General appearance: cooperative and ill appearing Orientation/consciousness: Yes awake HENMT Common normals: normocephalic Nose: nasal discharge External ear: external ears normal Mouth: oral and palatal mucosa normal, lip normal and tongue normal; no drooling and no muffled voice Throat: posterior oropharynx normal Eye Common normals: conjunctivae normal and no scleral icterus Neck & C-Spine Common normals: supple and no meningeal signs Chest Chest: symmetrical chest wall rise Respiratory Common normals: normal respiratory effort, no use of accessory muscles and clear to auscultation bilaterally Cardio Common normals: regular rhythm Rate: tachycardic GI Common normals: soft to palpation and non-tender Neuro Common normals: oriented x3 Sensorium/orientation: awake and alert Speech: speech normal Gait (neuro): normal gait Psych Mood and affect: tearful Course Vital Signs Vital signs: Vital Signs Temperature 101.2 F H 06/11/23 13:45 Pulse Rate 138 H 06/11/23 13:45 Respiratory Rate 18 06/11/23 13:45 Blood Pressure 157/89 H 06/11/23 13:45 Pulse Oximetry 100 06/11/23 13:45 Oxygen Delivery Method Room Air 06/11/23 13:45 Temperature 100.2 F 06/11/23 15:12 Pulse Rate 112 H 06/11/23 16:15 Respiratory Rate 18 06/11/23 13:45 Blood Pressure 112/64 06/11/23 15:00 Pulse Oximetry 98 06/11/23 15:00 Oxygen Delivery Method Room Air 06/11/23 13:45 Medical Decision Making MDM Narrative Medical decision making narrative: Urinalysis showed infection; culture was pending. Covid-19 and influenza were negative. Chest x-ray was negative for acute findings. She was given IV fluids, Reglan, Benadryl, Toradol, and Rocephin. She was given oral Tylenol The patient reported improvement in her sx. She will be discharged home. A prescription was provided for Keflex for the UTI. Follow up with pcp for a recheck, further evaluation and treatment. Return precautions were discussed. Differential Diagnosis Differential Diagnosis: Covid-19, influenza, viral illness, UTI, pneumonia. Medical Records Medical records reviewed: Yes I reviewed the patient's medical records Lab Data Lab results reviewed: Yes I reviewed the patient's lab results Labs: Lab Results 06/11/23 06/11/23 Range/Units 13:55 14:02 WBC 15.4 H (4.0-11.0) 10^3/uL RBC 4.58 (4.20-5.40) 10^6/uL Hgb 13.7 (12.0-16.0) g/dL Hct 42.6 (36.0-48.0) % MCV 93.0 (81.0-99.0) fL MCH 29.9 (26.7-34.0) pg MCHC 32.2 (29.9-35.2) g/dL RDW 13.0 (11.0-15.0) % Plt Count 298 (150-450) 10^3/uL MPV 10.1 (9.5-13.5) fL Neut % (Auto) 83.5 H (43.0-75.0) % Lymph % (Auto) 11.1 L (20.5-60.0) % Heard % (Auto) 4.5 (1.7-12.0) % Eos % (Auto) 0.1 L (0.9-7.0) % Baso % (Auto) 0.3 (0.2-2.0) % Neut # (Auto) 12.9 H (1.4-6.5) 10^3/uL Lymph # (Auto) 1.7 (1.2-3.8) 10^3/uL Heard # (Auto) 0.7 (0.3-0.8) 10^3/uL Eos # (Auto) 0.0 (0.0-0.7) 10^3/uL Baso # (Auto) 0.0 (0.0-0.1) 10^3/uL Abs Immat Gran (auto) 0.07 H (0.00-0.03) 10^3/uL Imm/Tot Granulo (auto) 0.5 (0.0-0.5) % Sodium 142 (136-145) mmol/L Potassium 3.8 (3.5-5.1) mmol/L Chloride 103 (98-107) mmol/L Carbon Dioxide 26.1 (21.0-32.0) mmol/L Anion Gap 16.7 BUN 10.0 (7.0-18.0) mg/dL Creatinine 1.00 (0.55-1.02) mg/dL Est GFR ( Amer) >60 (>=60) Est GFR (Non-Af Amer) >60 (>=60) BUN/Creatinine Ratio 10.0 Glucose 102 (74-106) mg/dL Calcium 9.7 (8.5-10.1) mg/dL Total Bilirubin 0.5 (0.2-1.0) mg/dL AST 12 L (15-37) U/L ALT 18 (14-59) U/L Alkaline Phosphatase 103 (46-116) U/L Total Protein 7.6 (6.4-8.2) g/dL Albumin 3.1 L (3.4-5.0) g/dL Globulin 4.5 g/dL Albumin/Globulin Ratio 0.7 Urine Color Brown A (YELLOW) Urine Clarity Clear (CLEAR) Urine pH 6.0 (5.0-9.0) Ur Specific [place] >=1.030 A (1.005-1.025) Urine Protein 100 A (NEG/TRACE) mg/dL Urine Glucose (UA) Negative (NEGATIVE) mg/dL Urine Ketones Negative (NEGATIVE) mg/dL Urine Occult Blood Large A (NEGATIVE) Urine Nitrite Positive A (NEGATIVE) Urine Bilirubin Negative (NEGATIVE) Urine Urobilinogen 0.2 (0.2-1.0) EU/dL Ur Leukocyte Esterase Moderate A (NEGATIVE) Urine RBC 20-50 A (0-2) #/HPF Urine WBC 50-75 A (NONE SEEN) #/HPF Ur Squamous Epith Cells Few A (NONE/RARE) #/LPF Urine Crystals None seen (None Seen) #/HPF Urine Bacteria Moderate A (NONE SEEN) #/HPF Urine Casts None seen (NONE SEEN) #/LPF Urine Mucus Trace A (NONE SEEN) Ur Culture Indicated? Yes Urine HCG, Qual Negative (NEGATIVE) Influenza Type A Ag Negative Influenza Type B Ag Negative SARS-CoV-2 Ag (CV2AG) Negative (NEGATIVE) Imaging Data Chest x-ray: Attestation: I have reviewed the pertinent imaging results. Radiologist's impression: ITS Impressions Chest X-Ray 06/11/23 14:30 IMPRESSION: No acute cardiopulmonary process Electronically authenticated by: JUAN KING Date: 06/11/2023 14:51 Discharge Plan Discharge Stand Alone Forms: Portal Instructions Chief Complaint: Fever Clinical Impression: UTI (urinary tract infection), URI (upper respiratory infection) Patient Disposition: Home, Self-Care Time of Disposition Decision: 15:44 Condition: Good Mode of Transportation: Private Vehicle Prescriptions / Home Meds: New cephalexin 500 mg capsule 500 mg PO BID 5 Days Qty: 10 0RF Print Language: Slovak Instructions: Urinary Tract Infection in Women (ED), Upper Respiratory Infection (ED) Additional Instructions: Return to the ER for new or worsening symptoms. Referrals: Bobbi Norman MD [Primary Care Provider] - 1 week Discharge Date/Time: 06/11/23 16:16
[2023-06-11] MEDS: ACETAMINOPHEN 500 MG TABLET 1000 MG PO (14:20)
[2023-06-11 14:21] LABS: Basophils Percent Auto 0.3 % (0.2-2.0); Eosinophils Percent Auto 0.1 % (0.9-7.0); Hematocrit 42.6 % (36.0-48.0); Hemoglobin 13.7 g/dL (12.0-16.0); Immature Granulocytes Abs Auto 0.07 10^3/uL (0.00-0.03); Immature Granulocytes Pct Auto 0.5 % (0.0-0.5); Lymphocytes Absolute Auto 1.7 10^3/uL (1.2-3.8); Lymphocytes Percent Auto 11.1 % (20.5-60.0); Mean Corpuscular HGB Conc 32.2 g/dL (29.9-35.2); Mean Corpuscular Hemoglobin 29.9 pg (26.7-34.0); Mean Platelet Volume 10.1 fL (9.5-13.5); Monocytes Absolute Auto 0.7 10^3/uL (0.3-0.8); Monocytes Percent Auto 4.5 % (1.7-12.0); Neutrophils Absolute Auto 12.9 10^3/uL (1.4-6.5); Neutrophils Percent Auto 83.5 % (43.0-75.0); Platelet Count 298 10^3/uL (150-450); Red Blood Count 4.58 10^6/uL (4.20-5.40); White Blood Count 15.4 10^3/uL (4.0-11.0)
[2023-06-11 14:22] LABS: Bilirubin Urine NEGATIVE (NEGATIVE); Blood Urine LARGE (NEGATIVE); Clarity Urine CLEAR (CLEAR); Color Urine BROWN (YELLOW); Glucose Urine UA NEGATIVE (NEGATIVE); Ketones Urine NEGATIVE (NEGATIVE); Leukocyte Esterase Urine MODERATE (NEGATIVE); Nitrite Urine POSITIVE (NEGATIVE); Protein Urine 100 mg/dL (NEG/TRACE); Specific Gravity Urine >=1.030 (1.005-1.025); Urobilinogen Urine 0.2 EU/dL (0.2-1.0)
[2023-06-11] MEDS: 0.9 % SODIUM CHLORIDE 1,000 ML 999 ML IV (14:22)
[2023-06-11] MEDS: KETOROLAC TROMETHAMINE 30 MG/ML VIAL 15 MG IVP (14:23)
[2023-06-11] MEDS: DEXAMETHASONE SOD PHOS 10 MG/ML VIAL IV (14:23)
[2023-06-11] MEDS: DIPHENHYDRAMINE HCL 50 MG/ML (1ML) VIAL 25 MG IV (14:23)
[2023-06-11] MEDS: METOCLOPRAMIDE HCL 10 MG/2 ML VIAL IVP (14:23)
[2023-06-11 14:25] LABS: HCG Qualitative Urine* NEGATIVE (NEGATIVE); Urine Microscopic Indicated YES
[2023-06-11 14:30] LABS: Alanine Aminotransferase 18 U/L (14-59); Albumin Globulin Ratio 0.7; Albumin Level 3.1 g/dL (3.4-5.0); Alkaline Phosphatase 103 U/L (46-116); Anion Gap 16.7; Aspartate Amino Transferase 12 U/L (15-37); Bilirubin Total 0.5 mg/dL (0.2-1.0); Calcium 9.7 mg/dL (8.5-10.1); Carbon Dioxide 26.1 mmol/L (21.0-32.0); Chloride 103 mmol/L (98-107); Estimated GFR (African America >60 (>=60); Estimated GFR (Non-African Ame >60 (>=60); Globulin 4.5 g/dL; Glucose 102 mg/dL (74-106); Potassium 3.8 mmol/L (3.5-5.1); Sodium 142 mmol/L (136-145); Total Protein 7.6 g/dL (6.4-8.2)
--- NOTE | 2023-06-11 14:30 | XR_ITS ---
The [address] [address] Patient Name: DORIS JOHNS MRN: [id number] date: 2000 Sex: F Assigned Patient Location: ER Current Patient Location: ER Accession/Order Number: [id number] Exam Date: 06/11/2023 14:30 Report Date: 06/11/2023 14:51 At the request of: OTÑO TRISTAN Procedure: XR chest 1V EXAMINATION: XR chest 1V HISTORY: cough, SOB COMPARISON: 03/17/2023 TECHNIQUE: AP portable FINDINGS: LUNGS: No significant pulmonary parenchymal abnormalities. VASCULATURE: No increased pulmonary vasculature. PLEURA: No pneumothorax, effusion, or pleural thickening. CARDIAC: No cardiomegaly or cardiac silhouette abnormality. MEDIASTINUM: No visible mass or adenopathy. BONES: No fracture or visible bone lesion. Thoracolumbar fusion hardware OTHER: Negative. XR/XR chest 1V IMPRESSION: No acute cardiopulmonary process Electronically authenticated by: JUAN KING Date: 06/11/2023 14:51
[2023-06-11 14:34] LABS: Influenza Virus A Antigen Negative; Influenza Virus B Antigen Negative; Internal Control Within Normal Limits; SARS-CoV-2 Ag NEGATIVE (NEGATIVE)
[2023-06-11 14:37] LABS: RBC Urine 20-50 #/HPF (0-2); WBC Urine 50-75 #/HPF (NONE SEEN)
[2023-06-11 14:38] LABS: Bacteria Urine MODERATE #/HPF (NONE SEEN); Cast Seen? NONE SEEN #/LPF (NONE SEEN); Crystals Seen? None Seen #/HPF (None Seen); Mucus Urine TRACE (NONE SEEN); Squamous Epithelial Cell Urine FEW #/LPF (NONE/RARE); Urine Culture Indicated YES
[2023-06-11] MEDS: CEFTRIAXONE 1,000 MG in 0.9 % SODIUM CHLORIDE 50 ML 100 MG IV (14:48)
--- NOTE | 2023-06-11 18:41 | ECG_ITS ---
The [facility] Test Date: 2023-06-11 Pat Name: DORIS JOHNS Department: Room: - Gender: Female Box Maker: : 2000 Requested By: GEORGE MEANS Order Number: [id number] Reading MD: PARISH LANDIS Measurements Intervals [place] Rate: 136 P: 77 DC: 142 QRS: 88 QRSD: 84 T: 45 QT: 268 QTc: 347 Interpretive Statements 1120 Sinus tachycardia [address] depression [address] & [place] abnormality 8305 Short QTc interval 9150 abnormal ECG Electronically Signed On 06-11-2023 23:03:03 EDT by PARISH LANDIS
== END 2023-06-11 16:16 | disposition home or self-care (01) ==
PROVIDERS: Nurse Practitioner Family; Emergency Provider Emergency Medicine; PCP Family Medicine
DX: J06.9 Acute upper respiratory infection, unspecified (principal); N39.0 Urinary tract infection, site not specified; Z20.822 Contact with and (suspected) exposure to COVID-19; R50.9 Fever, unspecified
CPT/HCPCS: 36415; 71045; 80053; 81001; 84703; 85025; 87086; 87150; 87804; 87811; 93005; 96365; 96375; 99285; J1100

== ENCOUNTER 2024-04-12 20:23 | Outpatient (REF) | payer BC, SELFPAY ==
--- OUTSIDE RECORDS SUMMARY | 2024-04-12 20:27 | XMS_ITS | CCD ---
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 mL/min/{1.73_m2} >=[address] [facility] Glucose [Mass/Vol] 102 mg/dL 74-106 [facility] Potassium [Moles/Vol] 3.8 mmol/L 3.5-5.1 [facility] Protein [Mass/Vol] 7.6 g/dL 6.4-8.2 [facility] Sodium [Moles/Vol] 142 mmol/L 136-145 [facility] Urea nitrogen [Mass/Vol] 10.0 mg/dL 7.0-18.[address] [facility] Urea nitrogen/Creatinine [Mass ratio] 10.0 mg/mg [facility] Laboratory - Hematology and Cell countson 06-11-2023 Immature granulocytes/100 WBC (Bld) 0.5 % 0.0-0.[address] [facility] Laboratory - Microbiology an d Antimicrobial susceptibilityOrdered By: Bobbi Norman on 06-11-2023 Bacteria identified Cx Nom (U) [facility] Laboratory - Microbiology an d Antimicrobial susceptibilityon 06-11-2023 SARS-CoV-2 (COVID-19) RNA TRE+probe Ql (Unsp spec) Negative NEGATIVE [facility] Comment on above: This test has not be en FDA cleared or approved, but has beenauthorized by the FDA under an Emergency Use Authorization(EUA) for use by authorized laboratories certified underIA that meet the requirements to perform moderate or highcomplexity testing. This test has been authorized only forthe detection of proteins from SARS-CoV-2, not for any otherviruses or pathogens. The emergency use of this test isauthorized for the duration of the declaration thatcircumstances exist justifying the authorization ofemergency use of in vitro diagnostic tests for detectionand/or diagnosis of Covid-19 under section 564(b)(1) of theAct, 21 U.S.C. 360bbb-3(b)(1), unless the declaration isterminated or authorization is revoked sooner. Leukocytes [#/area] in Urine sediment by Automated counton 06-11-2023 WBC Auto (Urine sed) [#/Area] 20-50 #/HPF 0-[address] [facility] Leukocytes [#/area] in Urine sediment by Microscopy high power fieldon 06-11-2023 WBC LM.HPF (Urine sed) [#/Area] 50-75 #/HPF NONE SEEN [facility] Leukocytes [#/volume] correc natanael for nucleated erythrocytes in Blood by Automated counon 06-11-2023 WBC corrected for nucl RBC Auto (Bld) [#/Vol] 15.4 10 3/uL 4.0-11.[address] [facility] Lymphocytes Auto (Bld) [#/Vo l]on 06-11-2023 Lymphocytes (Bld) [#/Vol] 1.7 10 3/uL 1.2-3.[address] [facility] Lymphocytes/100 WBC Auto (Bl d)on 06-11-2023 Lymphocytes/100 WBC (Bld) 11.1 % 20.5-60.[address] [facility] MCH Auto (RBC) [Entitic mass ]on 06-11-2023 MCH (RBC) [Entitic mass] 29.9 pg 26.7-34.[address] [facility] MCHC Auto (RBC) [Mass/Vol]on 06-11-2023 MCHC (RBC) [Mass/Vol] 32.2 g/dL 29.9-35.2 [facility] MCV Auto (RBC) [Entitic vol] on 06-11-2023 MCV (RBC) [Entitic vol] 93.0 fL 81.0-99.0 [facility] Monocytes Auto (Bld) [#/Vol] on 06-11-2023 Monocytes (Bld) [#/Vol] 0.7 10 3/uL 0.3-0.[address] [facility] Monocytes/100 WBC Auto (Bld) on 06-11-2023 Monocytes/100 WBC (Bld) 4.5 % 1.7-12.0 [facility] Mucus LM Ql (Urine sed)on Mucus Ql (Urine sed) TRACE NONE SEEN [facility] Neutrophils Auto (Bld) [#/Vo l]on 06-11-2023 Neutrophils (Bld) [#/Vol] 12.9 10 3/uL 1.4-6.[address] [facility] Neutrophils/100 WBC Auto (Bl d)on 06-11-2023 Neutrophils/100 WBC (Bld) 83.5 % 43.0-75.[address] [facility] No Panel Informationon 06-10 Urine Culture Reflexed YES [facility] Urine Microscopic Review YES [facility] Bedside Influenza Type A Antigen Negative [facility] Comment on above: Negative for Flu A p rotein antigen. Infection due to Flu Acannot be ruled out. Flu A antigen in the sample may bebelow the detection limit of the test. Bedside Influenza Type B Antigen Negative [facility] Comment on above: Negative for Flu B p rotein antigen. Infection due to Flu Bcannot be ruled out. Flu B antigen in the sample may bebelow the detection limit of the test. Eosinophils # (Auto) 0.0 10 3/uL 0.0-0.7 [facility] Immature Granulocyte # (Auto) 0.07 10 3/uL 0.00-0.[address] [facility] Platelet mean volume Auto (B ld) [Entitic vol]on 06-11-2023 Platelet mean volume (Bld) [Entitic vol] 10.1 fL 9.5-13.[address] [facility] Platelets Auto (Bld) [#/Vol] on 06-11-2023 Platelets (Bld) [#/Vol] 298 10 3/uL 150-[address] [facility] Protein Auto test strip (U) [Mass/Vol]on 06-11-2023 Protein (U) [Mass/Vol] 100 mg/dL NEG/TRACE [facility] RBC Auto (Bld) [#/Vol]on RBC (Bld) [#/Vol] 4.58 10 6/uL 4.20-5.40 [facility] Serum or plasma albumin/glob ulin mass ratioon 06-11-2023 Albumin/Globulin [Mass ratio] 0.7 {ratio} [facility] Serum or plasma anion gap de terminationon 06-11-2023 Anion gap [Moles/Vol] 16.7 mmol/L [facility] Specific gravity Auto test s trip (U) [Rel density]on 06-11-2023 Specific gravity (U) [Rel density] CLEAR CLEAR [facility] Urine hemoglobin detection b y automated test stripon 06-11-2023 Hemoglobin Auto test strip Ql (U) LARGE NEGATIVE [facility] Urine nitrite detection by a utomated test stripon 06-11-2023 Nitrite Auto test strip Ql (U) MODERATE NEGATIVE [facility] Nitrite Auto test strip Ql (U) Positive NEGATIVE [facility] Urine sediment crystal ident ification by light microscopyon 06-11-2023 Crystals LM Nom (Urine sed) None Seen #/HPF None Seen [facility] Urobilinogen Auto test strip (U) [Mass/Vol]on 06-11-2023 Urobilinogen Qn (U) 0.2 {Christo'U}/dL 0.2-1.[address] [facility] pH Auto test strip (U)on pH (U) 6.0 [pH] 5.0-9.[address] [facility] Telemedicineon 05-29-2023 Telemedicine [id number] Doris Johns 2000 Provider Department Center 05/29/2023 JOSE C SAUCEDO HAMILTON Moura Family History Problem Relation Age of Onset Hyperlipidemia Mother Hyperlipidemia Father Atrial fibrillation Maternal Grandmother Heart failure Maternal Grandmother Coronary artery disease Maternal Grandmother Family Status - Relation Status Age at Mother Father Maternal Grandmother Level of Service:01126 [place] PHYS/QHP TELEPHONE EVALUATION 11-20 MIN Normal [facility] Documentationon 03-17-2023 Documentation [id number] Doris Johns 2000 Provider Department Center 03/17/2023 JENNIFER UPTON Family History Problem Relation Age of Onset Hyperlipidemia Mother Hyperlipidemia Father Atrial fibrillation Maternal Grandmother Heart failure Maternal Grandmother Coronary artery disease Maternal Grandmother Family Status - Relation Status Age at Mother Father Maternal Grandmother Normal [facility] Office Visiton 03-17-2023 Follow-up visit [id number] Doris Johns 2000 Provider Department Center 03/17/2023 JENNIFER UPTON HAMILTON [facility] Family History Problem Relation Age of Onset Hyperlipidemia Mother Hyperlipidemia Father Atrial fibrillation Maternal Grandmother Heart failure Maternal Grandmother Coronary artery disease Maternal Grandmother Family Status - Relation Status Age at Mother Father Maternal Grandmother Level of Service:93523 [place] OFFICE/OUTPATIENT NEW MODERATE MDM 45 MINUTES Normal [facility] [place] holter monitor recordingo n 02-27-2023 [place] holter monitor recording [address] [address] Holter Monitor Report Signed Patient: Doris Johns MR#: [id number] 117 : 2000 Acct:[id number] Age/Sex: 22 / F ADM Date: 02/24/23 Loc: Room: Type: [facility] Attending Dr: Bobbi Norman MD Copies [...] mainly during mild sinus tachycardia. Transcribed By: JOHN 02/28/23 1627 Dictated By: Anne Hylton MD 02/27/23 1649 Signed By: 03/11/23 0912 Normal [facility] echo transthoracicon [facility] echo transthoracic [facility] Main [address] [address] Echocardiogram Signed Patient: Doris Johns MR#: [id number] : 2000 Acct:[id number] Age/Sex: 22 / F ADM Date: 02/24/23 Loc: Room: Type: [facility] Attending Dr: Bobbi Norman MD Ordering Provider: Bobbi Norman MD Date of Service: 02/24/23/ [facility] echo transthoracic: syncope, tachycardia Copies to: MD [...] V1 max: 97.0 cm/sec (0.7-1.7m/s)MV E max mike: 50.0 cm/sec(0.8-1.3m/s) MV A max mike: 63.1 cm/sec(0.0-0.0m/s) MV E/A: 0.79 (<1.5) MMode/2D Measurements Calculations TAPSE: 2.0 cm FS: 29.9 % Ao root area: LVOT diam: 2.1 cm RV S Mike: EDV(Teich): 6.6 cm2 LVOT area: 3.5 cm2 [...] max PG: TV max PG: TR max mike: 3.8 mmHg 19.0 mmHg 216.1 cm/sec LV V1 mean PG: TR max P.7 mmHg 1.9 mmHg RAP systole: 3.0 mmHg LV V1 mean: 62.9 cm/sec LV V1 VTI: 14.9 cm Transcribed By: SCV Performed At: 02/24/23 1257 Signed By: Anne Hylton MD 02/24/23 1450 [facility] PAP ACOG PANEL 2: 21 to 29on 02-24-2022 . . Normal [facility] Comment on above: Performed By: #### [id number] #### [facility] [address] [place] [address] Dr. Gasper Welch Age Gdln ACOG Testing - [facility] Comment on above: Performed By: #### [id number] #### [facility] [address] [place] [address] Dr. Gasper Welch DIAGNOSIS: Comment [facility] Comment on above: Result Comment: NEGA TIVE FOR INTRAEPITHELIAL LESION OR MALIGNANCY. Performed By: #### 4 [id number] #### [facility] [address] [place] [address] Dr. Gasper Welch Methodology: Comment [facility] Comment on above: Result Comment: This liquid based ThinPrep(R) pap test was screened with the use of an image guided system. Performed By: #### 4 [id number] #### [facility] [address] [place] [address] Dr. Gasper Welch Note: Comment [facility] Comment on above: Result Comment: The Pap smear is a screening test designed to aid in the detection of premalignant and malignant conditions of the uterine cervix. It is not a diagnostic procedure and should not be used as the sole means of detecting cervical cancer. Both false-positive and false-negative reports do occur. . Performed By: #### 4 [id number] #### [facility] [address] [place] [address] Dr. Gasper Welch Performed by: Comment Normal [facility] Comment on above: Result Comment: Lola Matthews, Safety Associate (ASCP) Performed By: #### 4 [id number] #### [facility] [address] [place] [address] Dr. Gasper Welch Reflex Criteria: Comment Normal [facility] Comment on above: Result Comment: The HPV DNA reflex criteria were not met with this specimen result therefore, no HPV testing was performed. . Performed By: #### 4 [id number] #### [facility] [address] [place] [address] Dr. Gasper Welch Specimen adequacy: Comment Normal [facility] Comment on above: Result Comment: Sati sfactory for evaluation. Endocervical and/or squamous metaplastic cells (endocervical component) are present. Performed By: #### 4 [id number] #### [facility] [address] [place] [address] Dr. Gasper Welch CHLAMYDIA/GONOCOCCUS TRE (SW AB/URINE/PAPon 02-18-2022 Chlamydia trachomatis, TRE Negative Normal Negative [facility] Comment on above: Performed By: #### C T/NGNA #### [facility] [address] [place] [address] Dr. Gasper Welch Neisseria gonorrhoeae, TRE Negative Normal Negative [facility] Comment on above: Performed By: #### C T/NGNA #### [facility] [address] [place] [address] Dr. Gasper Welch Auth for Release of Medical Recordson 08-10-2020 Auth for Release of Medical Records [id number] #[id number] Normal [facility] Provider Letteron 05-14-2020 Provider Letter May 14, 2020 DORIS JOHNS [address] [place] [address] DORIS JOHNS 2000 Dear Doris Johns , We have been trying to reach you with no success. It is important that you return our call regarding Doris's upcoming appointment,upon receiving this letter. Also, at the time of your call, please provide us with your current information. Thank you for your prompt attention to this matter. Sincerely, Mable VOSS [facility] [address] [place] [address] Normal [facility] Ambulatory Clinical Summaryo n 03-02-2020 Ambulatory Clinical Summary {[id number]}CD:[id number] Normal [facility] Pediatrics Office/Clinic Not alyssa 03-02-2020 Pediatrics Office/Clinic [...] at night. She is a freshman at [employer]. 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 Living [...] vaccine 0 (more content not included)... Normal [facility] MRI BRAIN WO CONTRASTon 10-0 MRI BRAIN WO CONTRAST EXAMINATION: MRI OF [...] Darrin Patiño MD 12/21/19 Final result Normal [facility] No acute intracranial abnormality. Mild diffuse paranasal sinus disease. [place], [place] EXAMINATION: MRI OF THE BRAIN WITHOUT CONTRAST [...] The soft tissues demonstrate no acute abnormality. [place], [place] Fidencio, [facility] Incoming Radiant Results From [facility] - 12/21/2019 2:11 PM EDT EXAMINATION: MRI [...] intracranial abnormality. Mild diffuse paranasal sinus disease. [place], [place] Lupus Anticoagulanton 2019 Dilute Ham Viper Negative Normal [facility] Comment on above: Performed By: #### C BC, SED, CP, TSH #### [facility] [address] [place] [address] Bottle Label Inspector: Ozzy Young MD #### RA, B12FOL, TREP, ANASCX, LUPPRO #### [facility] [employer] [address] [place] [address] [id number] Bottle Label Inspector: Ozzy Young MD Lupus Anticoagulanton 2019 Antiphospholipid IgA 0.4 APU Normal <12 [facility] Comment on above: Result Comment: Reference Range: 12 - 15 Equivocal >15 Positive Performed By: #### C BC, SED, CP, TSH #### [facility] [address] [place] [address] Bottle Label Inspector: Ozzy Young MD #### RA, B12FOL, TREP, ANASCX, LUPPRO #### [id number] [place], [place] [id number] Bottle Label Inspector: Ozzy Young MD Antiphospholipid IgG 6.0 GPU Normal <20 [facility] Comment on above: Result Comment: Reference Range: 20.0 - 29.9 Low Positive 30.0 - 79.9 Moderate Positive >79.9 High Positive Performed By: #### C BC, SED, CP, TSH #### [facility] [address] [place] [address] [id number] Bottle Label Inspector: Ozzy Young MD #### RA, B12FOL, TREP, ANASCX, LUPPRO #### [address] [id number] Bottle Label Inspector: Ozzy Young MD Antiphospholipid IgM 4.9 MPU Normal <20 [facility] Comment on above: Result Comment: Reference Range: 20.0 - 29.9 Low Positive 30.0 - 79.9 Moderate Positive >79.9 High Positive Performed By: #### C BC, SED, CP, TSH #### [facility] [address] [place] [address] Bottle Label Inspector: Ozzy Young MD #### RA, B12FOL, TREP, ANASCX, LUPPRO #### [address] [address] Bottle Label Inspector: Ozzy Young MD ELVIA Screenon 12-02-2019 ELVIA Screen Negative Normal [facility] Comment on above: Result Comment: This test was run on the [employer] ELVIA test system. The system provides ten test results (HEp-2NA, dsDNA, SSA, SSB, Sm, TAP DANCER, Scl-70, Taryn-1, Centromere and Histone analytes) from a single patient sample. A negative ELVIA screen indicates that the specimen was negative for all ten markers. Performed By: #### C BC, SED, CP, TSH #### [facility] [address] [place] [address] Bottle Label Inspector: Ozzy Young MD #### RA, B12FOL, TREP, ANASCX, LUPPRO #### [id number] [place] [address] Bottle Label Inspector: Ozzy Young MD Lupus Anticoagulanton 2019 aPTT Coag (Bld) [Time] 30.2 s Normal 20.5-30.5 [facility] Comment on above: Result Comment: IV Heparin Therapy Range: 48.6-77.8 Performed By: #### C BC, SED, CP, TSH #### [facility] [address] [place] [address] Bottle Label Inspector: Ozzy Young MD #### RA, B12FOL, TREP, ANASCX, LUPPRO #### [address] [phone] Bottle Label Inspector: Ozzy Young MD INR Coag (PPP) [Relative time] 1.0 {INR} Normal [facility] Comment on above: Result Comment: Therapeutic Range: Moderate Anticoagulant Intensity: INR = 2.0-3.0 High Anticoagulant Intensity: INR = 2.5-3.5 Performed By: #### C BC, SED, CP, TSH #### [facility] [address] [place] [address] Bottle Label Inspector: Ozzy Young MD #### RA, B12FOL, TREP, ANASCX, LUPPRO #### [address] [address] Bottle Label Inspector: Ozzy Young MD PT Coag (PPP) [Time] 10.5 s Normal 9.0-12.0 [facility] Comment on above: Performed By: #### C BC, SED, CP, TSH #### [facility] [address] [place] [address] Bottle Label Inspector: Ozzy Young MD #### RA, B12FOL, TREP, ANASCX, LUPPRO #### [address] [phone] Bottle Label Inspector: Ozzy Young MD T.pallidum Ab Screenon 12-01 T.pallidum Ab Screen NONREACTIVE Normal [facility] Comment on above: Result Comment: T. pallidum antibodies are not detected. There is no serological evidence of infection with T. pallidum (early primary syphilis cannot be excluded). Retest in 2-4 weeks if syphilis is clinically suspect. Performed By: #### C BC, SED, CP, TSH #### [facility] [address] [place] [address] Bottle Label Inspector: Ozzy Young MD #### RA, B12FOL, TREP, ANASCX, LUPPRO #### [address] [id number] Bottle Label Inspector: Ozzy Young MD B12/Folate Panelon 0 Cobalamin (Vitamin B12) [Mass/Vol] 632 pg/mL Normal 232-1245 [facility] Comment on above: Performed By: #### C BC, SED, CP, TSH #### [facility] [address] [place] [address] Bottle Label Inspector: Ozzy Young MD #### RA, B12FOL, TREP, ANASCX, LUPPRO #### [address] [address] Bottle Label Inspector: Ozzy Young MD Folic Acid 12.8 ng/mL Normal >4.8 [facility] Comment on above: Performed By: #### C BC, SED, CP, TSH #### [facility] [address] [place] [id number] Bottle Label Inspector: Ozzy Young MD #### RA, B12FOL, TREP, ANASCX, LUPPRO #### [address] [address] Bottle Label Inspector: Ozzy Young MD CBCon 12-01-2019 Erythrocyte distribution width (RBC) [Ratio] 12.1 % Normal 11.8-14.4 [facility] Comment on above: Performed By: #### C BC, SED, CP, TSH #### [facility] [address] [place] [id number] Bottle Label Inspector: Ozzy Young MD #### RA, B12FOL, TREP, ANASCX, LUPPRO #### [address] [id number] Bottle Label Inspector: Ozzy Young MD Hematocrit (Bld) [Volume fraction] 43.0 % Normal 36.3-47.1 [facility] Comment on above: Performed By: #### C BC, SED, CP, TSH #### [facility] [address] [place] [address] Bottle Label Inspector: Ozzy Young MD #### RA, B12FOL, TREP, ANASCX, LUPPRO #### [address] [phone] Bottle Label Inspector: Ozzy Young MD Hemoglobin (Bld) [Mass/Vol] 13.8 g/dL Normal 11.9-15.1 [facility] Comment on above: Performed By: #### C BC, SED, CP, TSH #### [facility] [address] [place] [address] Bottle Label Inspector: Ozzy Young MD #### RA, B12FOL, TREP, ANASCX, LUPPRO #### [place] [id number] Bottle Label Inspector: Ozzy Young MD MCH (RBC) [Entitic mass] 29.8 pg Normal 25.2-33.5 [facility] Comment on above: Performed By: #### C BC, SED, CP, TSH #### [facility] [address] [place] [address] Bottle Label Inspector: Ozzy Young MD #### RA, B12FOL, TREP, ANASCX, LUPPRO #### [address] [id number] Bottle Label Inspector: Ozzy Young MD MCHC (RBC) [Mass/Vol] 32.1 g/dL Normal 25.2-33.5 [facility] Comment on above: Performed By: #### C BC, SED, CP, TSH #### [facility] [address] [place] [id number] Bottle Label Inspector: Ozzy Young MD #### RA, B12FOL, TREP, ANASCX, LUPPRO #### [address] [phone] Bottle Label Inspector: Ozzy Young MD MCV (RBC) [Entitic vol] 92.9 fL Normal 82.6-102.9 M [facility] Comment on above: Performed By: #### C BC, SED, CP, TSH #### [facility] [address] [place] [address] Bottle Label Inspector: Ozzy Young MD #### RA, B12FOL, TREP, ANASCX, LUPPRO #### [place] [address] Bottle Label Inspector: Ozzy Young MD NRBC Automated 0.0 per 100 WBC Normal 0.0 [facility] Comment on above: Performed By: #### C BC, SED, CP, TSH #### [facility] [address] [place] [address] Bottle Label Inspector: Ozzy Young MD #### RA, B12FOL, TREP, ANASCX, LUPPRO #### [address] [address] Bottle Label Inspector: Ozzy Young MD Platelet mean volume (Bld) [Entitic vol] 9.2 fL Normal 8.1-13.5 [facility] Comment on above: Performed By: #### C BC, SED, CP, TSH #### [facility] [address] [place] [address] Bottle Label Inspector: Ozzy Young MD #### RA, B12FOL, TREP, ANASCX, LUPPRO #### [address] [phone] Bottle Label Inspector: Ozzy Young MD Platelets (Bld) [#/Vol] 327 10*3/uL Normal 138-453 [facility] Comment on above: Performed By: #### C BC, SED, CP, TSH #### [facility] [address] [place] [address] Bottle Label Inspector: Ozzy Young MD #### RA, B12FOL, TREP, ANASCX, LUPPRO #### [address] [phone] Bottle Label Inspector: Ozzy Young MD RBC (Bld) [#/Vol] 4.63 10*6/uL Normal 3.95-5.11 [facility] Comment on above: Performed By: #### C BC, SED, CP, TSH #### [facility] [address] [place] [address] Bottle Label Inspector: Ozzy Young MD #### RA, B12FOL, TREP, ANASCX, LUPPRO #### [address] [address] Bottle Label Inspector: Ozzy Young MD WBC (Bld) [#/Vol] 8.1 10*3/uL Normal 4.5-13.5 [facility] Comment on above: Performed By: #### C BC, SED, CP, TSH #### [facility] [address] [place] [address] Bottle Label Inspector: Ozzy Young MD #### RA, B12FOL, TREP, ANASCX, LUPPRO #### [address] [address] Bottle Label Inspector: Ozzy Young MD Erythrocyte distribution width (RBC) [Ratio] 12.1 % 11.8 - 14.4 % [place] Hematocrit (Bld) [Volume fraction] 43.0 % 36.3 - 47.1 % [place] Hemoglobin (Bld) [Mass/Vol] 13.8 g/dL 11.9 - 15.1 g/dL [place] MCH (RBC) [Entitic mass] 29.8 pg 25.2 - 33.5 pg [place] MCHC (RBC) [Mass/Vol] 32.1 g/dL 25.2 - 33.5 g/dL [place] MCV (RBC) [Entitic vol] 92.9 fL 82.6 - 102.9 fL [place] Platelet mean volume (Bld) [Entitic vol] 9.2 fL 8.1 - 13.5 fL [place] Platelets (Bld) [#/Vol] 327 10*3/uL [place] RBC (Bld) [#/Vol] 4.63 10*6/uL 3.95 - 5.1 1 m/uL [place] WBC (Bld) [#/Vol] 8.1 10*3/uL [place] WBC (Bld) [#/Vol] 0.0 10*3/uL 0.0 per 10 0 WBC [place] Comp Metabolic Profon 2019 (cont.) Normal [facility] Comment on above: Result Comment: Aver age GFR for <20 years old not available. Chronic Kidney Disease: <60 mL/min/1.73sq m Kidney failure: <15 mL/min/1.73sq m eGFR calculated using average adult body mass. Additional eGFR calculator available at: http://www.[employer].HoozOn/multiple_crcl_2011.htm Performed By: #### C BC, SED, CP, TSH #### [facility] [address] [place] [address] Bottle Label Inspector: Ozzy Young MD #### RA, B12FOL, TREP, ANASCX, LUPPRO #### [facility] [address] [place] [address] Bottle Label Inspector: Ozzy Young MD Albumin [Mass/Vol] 4.6 g/dL Normal 3.5-5.2 [facility] Comment on above: Performed By: #### C BC, SED, CP, TSH #### [facility] [address] [place] [address] Bottle Label Inspector: Ozzy Young MD #### RA, B12FOL, TREP, ANASCX, LUPPRO #### [address] [phone] Bottle Label Inspector: Ozzy Young MD Albumin/Globulin [Mass ratio] 1.7 {ratio} Normal 1.0-2.5 [facility] Comment on above: Performed By: #### C BC, SED, CP, TSH #### [facility] [address] [place] [address] Bottle Label Inspector: Ozzy Young MD #### RA, B12FOL, TREP, ANASCX, LUPPRO #### [address] [address] Bottle Label Inspector: Ozzy Young MD Alkaline Phos 79 U/L Normal 35-104 [facility] Comment on above: Performed By: #### C BC, SED, CP, TSH #### [facility] [address] [place] [address] Bottle Label Inspector: Ozzy Young MD #### RA, B12FOL, TREP, ANASCX, LUPPRO #### [address] [phone] Bottle Label Inspector: Ozzy Young MD ALT [Catalytic activity/Vol] 16 U/L Normal 5-33 [facility] Comment on above: Performed By: #### C BC, SED, CP, TSH #### [facility] [address] [place] [address] Bottle Label Inspector: Ozzy Young MD #### RA, B12FOL, TREP, ANASCX, LUPPRO #### [address] [phone] Bottle Label Inspector: Ozzy Young MD Anion gap [Moles/Vol] 9 mmol/L Normal 9-17 [facility] Comment on above: Performed By: #### C BC, SED, CP, TSH #### [facility] [address] [place] [address] Bottle Label Inspector: Ozzy Young MD #### RA, B12FOL, TREP, ANASCX, LUPPRO #### [address] [address] Bottle Label Inspector: Ozzy Young MD AST [Catalytic activity/Vol] 18 U/L Normal <32 [facility] Comment on above: Performed By: #### C BC, SED, CP, TSH #### [facility] [address] [place] [address] Bottle Label Inspector: Ozzy Young MD #### RA, B12FOL, TREP, ANASCX, LUPPRO #### [address] [address] Bottle Label Inspector: Ozzy Young MD Bilirubin Ql (U) 0.24 mg/dL Low 0.3-1.2 [facility] Comment on above: Performed By: #### C BC, SED, CP, TSH #### [facility] [address] [place] [address] Bottle Label Inspector: Ozzy Young MD #### RA, B12FOL, TREP, ANASCX, LUPPRO #### [address] [address] Bottle Label Inspector: Ozzy Young MD BUN/CRE Ratio 21 High 9-20 [facility] Comment on above: Performed By: #### C BC, SED, CP, TSH #### [facility] [address] [place] [address] Bottle Label Inspector: Ozzy Young MD #### RA, B12FOL, TREP, ANASCX, LUPPRO #### [address] [phone] Bottle Label Inspector: Ozzy Young MD Calcium [Mass/Vol] 10.1 mg/dL Normal 8.6-10.4 [facility] Comment on above: Performed By: #### C BC, SED, CP, TSH #### [facility] [address] [place] [address] Bottle Label Inspector: Ozzy Young MD #### RA, B12FOL, TREP, ANASCX, LUPPRO #### [address] [phone] Bottle Label Inspector: Ozzy Young MD Chloride [Moles/Vol] 102 mmol/L Normal 98-107 [facility] Comment on above: Performed By: #### C BC, SED, CP, TSH #### [facility] [address] [place] [address] Bottle Label Inspector: Ozzy Young MD #### RA, B12FOL, TREP, ANASCX, LUPPRO #### [place] [address] Bottle Label Inspector: Ozzy Young MD CO2 [Moles/Vol] 27 mmol/L Normal 20-31 [facility] Comment on above: Performed By: #### C BC, SED, CP, TSH #### [facility] [address] [place] [address] Bottle Label Inspector: Ozzy Young MD #### RA, B12FOL, TREP, ANASCX, LUPPRO #### [address] [phone] Bottle Label Inspector: Ozzy Young MD Creatinine [Mass/Vol] 0.61 mg/dL Normal 0.50-0.90 [facility] Comment on above: Performed By: #### C BC, SED, CP, TSH #### [facility] [address] [place] [address] Bottle Label Inspector: Ozzy Young MD #### RA, B12FOL, TREP, ANASCX, LUPPRO #### [address] [phone] Bottle Label Inspector: Ozzy Young MD GFR,non Amer Pediatric GFR requires additional information. Refer to NKDEP website for Normal >60 [facility] Comment on above: Result Comment: calc ulator. Performed By: #### C BC, SED, CP, TSH #### [facility] [address] [place] [address] Bottle Label Inspector: Ozzy Young MD #### RA, B12FOL, TREP, ANASCX, LUPPRO #### [address] [phone] Bottle Label Inspector: Ozzy Young MD Glucose [Mass/Vol] 93 mg/dL Normal 70-99 [facility] Comment on above: Performed By: #### C BC, SED, CP, TSH #### [facility] [address] [place] [address] Bottle Label Inspector: Ozzy Young MD #### RA, B12FOL, TREP, ANASCX, LUPPRO #### [address] [phone] Bottle Label Inspector: Ozzy Young MD Potassium [Moles/Vol] 4.3 mmol/L Normal 3.7-5.3 [facility] Comment on above: Performed By: #### C BC, SED, CP, TSH #### [facility] [address] [place] [address] Bottle Label Inspector: Ozzy Young MD #### RA, B12FOL, TREP, ANASCX, LUPPRO #### [address] [phone] Bottle Label Inspector: Ozzy Young MD Protein [Mass/Vol] 7.3 g/dL Normal 6.4-8.3 [facility] Comment on above: Performed By: #### C BC, SED, CP, TSH #### [facility] [address] [place] [address] Bottle Label Inspector: Ozzy Young MD #### RA, B12FOL, TREP, ANASCX, LUPPRO #### [address] [phone] Bottle Label Inspector: Ozzy Young MD Sodium [Moles/Vol] 138 mmol/L Normal 135-144 [facility] Comment on above: Performed By: #### C BC, SED, CP, TSH #### [facility] [address] [place] [address] Bottle Label Inspector: Ozzy Young MD #### RA, B12FOL, TREP, ANASCX, LUPPRO #### [address] [phone] Bottle Label Inspector: Ozzy Young MD Urea nitrogen [Mass/Vol] 13 mg/dL Normal 6-20 [facility] Comment on above: Performed By: #### C BC, SED, CP, TSH #### [facility] [address] [place] [address] Bottle Label Inspector: Ozzy Young MD #### RA, B12FOL, TREP, ANASCX, LUPPRO #### [address] 2016208 Bottle Label Inspector: Ozzy Young MD GFR, Amer NOT REPORTED Normal >60 [facility] Comment on above: Performed By: #### C BC, SED, CP, TSH #### [facility] [address] [place] [address] Bottle Label Inspector: Ozzy Young MD #### RA, B12FOL, TREP, ANASCX, LUPPRO #### [facility] [address] [place], [place] [phone] Bottle Label Inspector: Ozzy Young MD Staging: NOT REPORTED Normal [facility] Comment on above: Performed By: #### C BC, SED, CP, TSH #### [facility] [address] [place] [address] Bottle Label Inspector: Ozzy Young MD #### RA, B12FOL, TREP, ANASCX, LUPPRO #### [facility] [address] [place] [address] Bottle Label Inspector: Ozzy Young MD Comprehensive Metabolic Pane [facility] 12-01-2019 Albumin [Mass/Vol] 4.6 g/dL 3.5 - 5.2 g/dL [place] Albumin/Globulin [Mass ratio] 1.7 {ratio} [place] ALP [Catalytic activity/Vol] 79 U/L 35 - 104 U/L [place] ALT [Catalytic activity/Vol] 16 U/L 5 - 33 U/L [place] Anion gap [Moles/Vol] 9 mmol/L 9 - 17 mmol/L [place] AST [Catalytic activity/Vol] 18 U/L <32 [place] Bilirubin Ql (U) 0.24 mg/dL Low 0.3 - 1.2 mg/dL [place] Bun/Cre Ratio 21 High [place] Calcium [Mass/Vol] 10.1 mg/dL 8.6 - 10. 4 mg/dL [place] Chloride [Moles/Vol] 102 mmol/L 98 - 10 7 mmol/L [place] CO2 [Moles/Vol] 27 mmol/L 20 - 31 mmol/L [place] Creatinine [Mass/Vol] 0.61 mg/dL 0.5 - 0.9 mg/dL [place] GFR NOT REPORTED >60 mL/min [place] GFR Non- Pediatric GFR requires additional information. Refer to NKDEP website for calculator. >60 mL/min [place] GFR/1.73 sq M predicted among non-blacks MDRD (S/P/Bld) [Vol rate/Area] [place] Comment on above: Average GFR for <20 years old not available. Chronic Kidney Disease: <60 mL/min/1.73sq m Kidney failure: <15 mL/min/1.73sq m eGFR calculated using average adult body mass. Additional eGFR calculator available at: http://www.Snoobe/multiple_crcl_2012.htm GFR/1.73 sq M predicted among non-blacks MDRD (S/P/Bld) [Vol rate/Area] NOT REPORTED [place] Glucose [Mass/Vol] 93 mg/dL 70 - 99 mg/dL [place] Interpretation and review of laboratory results Abnormal [place] Potassium [Moles/Vol] 4.3 mmol/L 3.7 - 5.3 mmol/L [place] Protein [Mass/Vol] 7.3 g/dL 6.4 - 8.3 g/dL [place] Sodium [Moles/Vol] 138 mmol/L 135 - 144 mmol/L [place] Urea nitrogen [Mass/Vol] 13 mg/dL 6 - 20 mg/d L [place] Lupus Anticoagulanton 2019 Lupus Anticoagulant NOT REPORTED Normal [facility] Comment on above: Performed By: #### C BC, SED, CP, TSH #### [facility] [address] [place] [address] Bottle Label Inspector: Ozzy Young MD #### RA, B12FOL, TREP, ANASCX, LUPPRO #### [facility] [address] [place], [place] [phone] Bottle Label Inspector: Ozzy Young MD RA Screenon 12-01-2019 RA Screen <10 Normal <14 [facility] Comment on above: Performed By: #### C BC, SED, CP, TSH #### [facility] [address] [place] [address] Bottle Label Inspector: Ozzy Young MD #### RA, B12FOL, TREP, ANASCX, LUPPRO #### [facility] [address] [place] [address] [phone] Bottle Label Inspector: Ozzy Young MD Rheumatoid Factoron 12-01-19 20 Rheumatoid Factor <10 <14 IU/mL [place] Sedimentation Rateon 020 Sedimentation Rate 4 mm Normal 0-20 [facility] Comment on above: Performed By: #### C BC, SED, CP, TSH #### [facility] [address] [place] [address] Bottle Label Inspector: Ozzy Young MD #### RA, B12FOL, TREP, ANASCX, LUPPRO #### [facility] [address] [place] [address] [phone] Bottle Label Inspector: Ozzy Young MD Sed Rate 4 mm 0 - 20 mm [place] T. pallidum Abon 12-01-2019 T. pallidum, IgG NONREACTIVE NONREACTIVE [place] Comment on above: T. pallidum antibodies are not detected. There is no serological evidence of infection with T. pallidum (early primary syphilis cannot be excluded). Retest in 2-4 weeks if syphilis is clinically suspect. TSH without Reflexon 020 TSH Qn 1.09 m[IU]/L [place] Thyroid Stim. Horm.on 2019 TSH Qn 1.09 m[IU]/L Normal 0.30-5.00 [facility] Comment on above: Performed By: #### C BC, SED, CP, TSH #### [facility] [address] [place] [address] Bottle Label Inspector: Ozzy Young MD #### RA, B12FOL, TREP, ANASCX, LUPPRO #### [facility] [place], [place] [phone] Bottle Label Inspector: Ozzy Young MD Vitamin B12 & Folateon 11-30 Cobalamin (Vitamin B12) [Mass/Vol] 632 pg/mL 232 - 1245 pg/mL [place] Folate 12.8 ng/mL >4.8 [place] Ambulatory Clinical Summaryo n 10-28-2019 Ambulatory Clinical Summary {[id number]}CD:[id number] Normal [facility] Pediatrics Office/Clinic Not alyssa 10-28-2019 Pediatrics Office/Clinic [...] day(s), # 28 cap(s), Refills(s) 0, Pharmacy: [facility]/pharmacy #[id number], 169, cm, 10/28/19 10:38:00 EDT, Height/Length Dosing, 67.9, kg, 10/28/19 10:38:00 EDT, Weight Dosing 2. Chronic cough (R05: Cough) start Flovent 110 2 puffs bid Ordered: fluticasone, 2 puff(s), Inhalation, BID, 12 gram, Refill(s) 2, [facility]/pharmacy #[id number], 169, cm, 10/28/19 10:38:00 EDT, Height/Length [...] BID, 2 refills fluticasone 0.05 mg/inh Nasal Draper, 1 spray(s), Nasal, Daily hydrOXYzine hydrochloride 25 [...] Employment/School Student, Previous employment/school: 12th grade at [employer] 01/14/2019 Home/Environment Lives with Father, Mother. Living [...] vaccine, inactivated 1 (more content not included)... [facility] Ambulatory Clinical Summaryo n 10-17-2019 Ambulatory Clinical Summary {[id number]}CD:[id number] [facility] Ambulatory Clinical Summaryo n 10-14-2019 Ambulatory Clinical Summary {[id number]}CD:[id number] [facility] Consenton 10-14-2019 Consent [id number]# [id number]:127 Normal [facility] Immunization Recordson 10-13 Immunization Records [id number] #1.00CD:127 Normal [facility] Patient Educationon 10-14-19 20 Patient Education Allergy [...] 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 DIAGNOSIS Your child's caregiver will perform a [...] possible. ?? ? Only give your child qqwu-gzj-wynxqdz or prescription medicines for pain, fever, or [...] Understand thes (more content not included)... 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 Living situation: Home/Independent., 09/20/2018 Substance Abuse - Denies Substance Abuse, 08/16/2018 Tobacco - Denies Tobacco Use, 08/16/2018 Never (less than 100 in lifetime) Tobacco Use:. Never Smokeless Tobacco Use:. Househo (more content not included)... Normal [facility] Progress Noteon 03-31-2019 Casino Worker Authentication Interface Message Text My progress note [...] Mastergraft performed by Satya Machado MD at [facility] OR TONSILLECTOMY AND ADENOIDECTOMY 2004 [...] Mastergraft performed by Satya Machado MD at [facility] OR TONSILLECTOMY AND ADENOIDECTOMY 2004 Family Medical History: History reviewed. No pertinent family history. Social History: Social History Tobacco Use Smoking status: Never Smoker Smokeless tobacco: Never Used Substance Use Topics Alcohol use: Never Frequency: Never Drug use: Never Normal [facility] XR CHEST PORTABLEon 12-05-19 XR CHEST PORTABLE [...] Skyler Jordan MD 12/03/18 Final result Normal [facility] XR HIP 2-3 VW W PELVIS [...] Skyler Jordan MD 12/03/18 Final result Normal [facility] APTTon 12-03-2018 aPTT Coag (Bld) [Time] 23.2 s Normal 20.5-30.5 [facility] Comment on above: Performed By: #### C DP, HCG, PT, PTT, BMP #### [facility] [address] [place] [phone] Bottle Label Inspector: Ozzy Young MD aPTT Coag (Bld) [Time] 23.2 s [place] BASIC METABOLIC PANELon 11-15 Anion gap [Moles/Vol] 11 mmol/L 9 - 17 mmol/L [place] Bun/Cre Ratio NOT REPORTED [place] Calcium [Mass/Vol] 8.8 mg/dL 8.6 - 10. 4 mg/dL [place] Chloride [Moles/Vol] 105 mmol/L 98 - 10 7 mmol/L [place] CO2 [Moles/Vol] 22 mmol/L 20 - 31 mmol/L [place] Creatinine [Mass/Vol] 0.56 mg/dL 0.5 - 0.9 mg/dL [place] GFR NOT REPORTED >60 mL/min [place] GFR Non- Pediatric GFR requires additional information. Refer to NKDEP website for calculator. >60 mL/min [place] GFR/1.73 sq M predicted among non-blacks MDRD (S/P/Bld) [Vol rate/Area] [place] Comment on above: Average GFR for <20 years old not available. Chronic Kidney Disease: <60 mL/min/1.73sq m Kidney failure: <15 mL/min/1.73sq m eGFR calculated using average adult body mass. Additional eGFR calculator available at: http://www.Snoobe/[employer]_crcl_2011.htm GFR/1.73 sq M predicted among non-blacks MDRD (S/P/Bld) [Vol rate/Area] NOT REPORTED [place] Glucose [Mass/Vol] 91 mg/dL 70 - 99 mg/dL [place] Potassium [Moles/Vol] 3.9 mmol/L 3.7 - 5.3 mmol/L [place] Sodium [Moles/Vol] 138 mmol/L 135 - 144 mmol/L [place] Urea nitrogen [Mass/Vol] 10 mg/dL 6 - 20 mg/d L [place] Basic Metabolic Profon 12-03 (cont.) Normal [facility] Comment on above: Result Comment: Aver age GFR for <20 years old not available. Chronic Kidney Disease: <60 mL/min/1.73sq m Kidney failure: <15 mL/min/1.73sq m eGFR calculated using average adult body mass. Additional eGFR calculator available at: http://www.Snoobe/multiple_crcl_2011.htm Performed By: #### C DP, HCG, PT, PTT, BMP #### [facility] [place] [address] Bottle Label Inspector: Ozzy Young MD Anion gap [Moles/Vol] 11 mmol/L Normal 9-17 [facility] Comment on above: Performed By: #### C DP, HCG, PT, PTT, BMP #### [facility] [address] [place] [address] Bottle Label Inspector: Ozzy Young MD Calcium [Mass/Vol] 8.8 mg/dL Normal 8.6-10.4 [facility] Comment on above: Performed By: #### C DP, HCG, PT, PTT, BMP #### [facility] [address] [place] [address] Bottle Label Inspector: Ozzy Young MD Chloride [Moles/Vol] 105 mmol/L Normal 98-107 [facility] Comment on above: Performed By: #### C DP, HCG, PT, PTT, BMP #### [address] [address] Bottle Label Inspector: Ozzy Young MD CO2 [Moles/Vol] 22 mmol/L Normal 20-31 [facility] Comment on above: Performed By: #### C DP, HCG, PT, PTT, BMP #### [facility] [address] [place] [address] Bottle Label Inspector: Ozzy Young MD Creatinine [Mass/Vol] 0.56 mg/dL Normal 0.50-0.90 [facility] Comment on above: Performed By: #### C DP, HCG, PT, PTT, BMP #### [facility] [address] [place] [address] Bottle Label Inspector: Ozzy Young MD GFR,non Amer Pediatric GFR requires additional information. Refer to NKDEP website for Normal >60 [facility] Comment on above: Result Comment: calc ulator. Performed By: #### C DP, HCG, PT, PTT, BMP #### [facility] [address] [place] [address] Bottle Label Inspector: Ozzy Young MD Glucose [Mass/Vol] 91 mg/dL Normal 70-99 [facility] Comment on above: Performed By: #### C DP, HCG, PT, PTT, BMP #### [facility] [address] [place] [phone] Bottle Label Inspector: Ozzy Young MD Potassium [Moles/Vol] 3.9 mmol/L Normal 3.7-5.3 [facility] Comment on above: Performed By: #### C DP, HCG, PT, PTT, BMP #### [facility] [address] [place] [phone] Bottle Label Inspector: Ozzy Young MD Sodium [Moles/Vol] 138 mmol/L Normal 135-144 [facility] Comment on above: Performed By: #### C DP, HCG, PT, PTT, BMP #### [address] [address] Bottle Label Inspector: Ozzy Young MD Urea nitrogen [Mass/Vol] 10 mg/dL Normal 6-20 [facility] Comment on above: Performed By: #### C DP, HCG, PT, PTT, BMP #### [address] [address] Bottle Label Inspector: Ozzy Young MD BUN/CRE Ratio NOT REPORTED Normal 9-20 [facility] Comment on above: Performed By: #### C DP, HCG, PT, PTT, BMP #### [facility] [address] [place] [address] Bottle Label Inspector: Ozzy Young MD GFR, Amer NOT REPORTED Normal >60 [facility] Comment on above: Performed By: #### C DP, HCG, PT, PTT, BMP #### [facility] [address] [place] [phone] Bottle Label Inspector: Ozzy Young MD Staging: NOT REPORTED Normal [facility] Comment on above: Performed By: #### C DP, HCG, PT, PTT, BMP #### [facility] [address] [place] [address] Bottle Label Inspector: Ozzy Young MD CBC WITH AUTO DIFFERENTIALon 12-03-2018 Basophils (Bld) [#/Vol] 0.06 10*3/uL [place] Basophils/100 WBC (Bld) 1 % 0 - 2 % M [place] Differential Type NOT REPORTED [place] Eosinophils (Bld) [#/Vol] 0.05 10*3/uL [place] Eosinophils/100 WBC (Bld) 1 % 1 - 4 % [place] Erythrocyte distribution width (RBC) [Ratio] 12.6 % 11.8 - 14.4 % [place] Hematocrit (Bld) [Volume fraction] 36.3 % 36.3 - 47.1 % [place] Hemoglobin (Bld) [Mass/Vol] 11.1 g/dL Low 11.9 - 15.1 g/dL [place] Immature granulocytes (Bld) [#/Vol] 0 % 0 [place] Immature granulocytes (Bld) [#/Vol] 10*3/uL [place] Interpretation and review of laboratory results Abnormal [place] Lymphocytes (Bld) [#/Vol] 2.24 10*3/uL [place] Lymphocytes/100 WBC (Bld) 25 % 25 - 45 % [place] MCH (RBC) [Entitic mass] 26.9 pg 25 - 35 pg [place] MCHC (RBC) [Mass/Vol] 30.6 g/dL 28.4 - 34.8 g/dL [place] MCV (RBC) [Entitic vol] 87.9 fL 78 - 102 fL [place] Monocytes (Bld) [#/Vol] 0.74 10*3/uL [place] Monocytes/100 WBC (Bld) 8 % 2 - 8 % [place] Platelet mean volume (Bld) [Entitic vol] 10.2 fL 8.1 - 13.5 fL [place] Platelets (Bld) [#/Vol] NOT REPORTED [place] Platelets (Bld) [#/Vol] 337 10*3/uL [place] RBC (Bld) [#/Vol] 4.13 10*6/uL 3.95 - 5.1 1 m/uL [place] RBC morphology finding Nom (Bld) NOT REPORTED [place] Segmented neutrophils/100 WBC (Bld) 65 % High 34 - 64 % [place] Segs Absolute 5.84 [place] WBC (Bld) [#/Vol] 0.0 10*3/uL 0.0 per 10 0 WBC [place] WBC (Bld) [#/Vol] 9.0 10*3/uL [place] WBC Morphology NOT REPORTED [place] CBC with Diffon 12-03-2018 Abs. Basophil 0.06 k/uL Normal 0.00-0.20 [facility] Comment on above: Performed By: #### C DP, HCG, PT, PTT, BMP #### [place] [address] Bottle Label Inspector: Ozzy Young MD Abs.Imm.Granulocyte <0.03 Normal 0.00-0.30 [facility] Comment on above: Performed By: #### C DP, HCG, PT, PTT, BMP #### [facility] [employer] [address] [place] [address] Bottle Label Inspector: Ozzy Young MD Abs.Neutrophil (Seg) 5.84 k/uL Normal 1.80-8.00 [facility] Comment on above: Performed By: #### C DP, HCG, PT, PTT, BMP #### [facility] [employer] [address] [place] [address] Bottle Label Inspector: Ozzy Young MD Basophils/100 WBC (Bld) 1 % Normal 0-2 M [facility] Comment on above: Performed By: #### C DP, HCG, PT, PTT, BMP #### [address] [address] Bottle Label Inspector: Ozzy Young MD Eosinophils (Bld) [#/Vol] 0.05 10*3/uL Normal 0.00-0.44 [facility] Comment on above: Performed By: #### C DP, HCG, PT, PTT, BMP #### [place] [address] Bottle Label Inspector: Ozzy Young MD Eosinophils/100 WBC (Bld) 1 % Normal 1-4 [facility] Comment on above: Performed By: #### C DP, HCG, PT, PTT, BMP #### [place] [address] Bottle Label Inspector: Ozzy Young MD Erythrocyte distribution width (RBC) [Ratio] 12.6 % Normal 11.8-14.4 [facility] Comment on above: Performed By: #### C DP, HCG, PT, PTT, BMP #### [place] [address] Bottle Label Inspector: Ozzy Young MD Hematocrit (Bld) [Volume fraction] 36.3 % Normal 36.3-47.1 [facility] Comment on above: Performed By: #### C DP, HCG, PT, PTT, BMP #### [place] [address] Bottle Label Inspector: Ozzy Young MD Hemoglobin (Bld) [Mass/Vol] 11.1 g/dL Low 11.9-15.1 [facility] Comment on above: Performed By: #### C DP, HCG, PT, PTT, BMP #### [place] [address] Bottle Label Inspector: Ozzy Young MD Immature granulocytes (Bld) [#/Vol] 0 % Normal 0 [facility] Comment on above: Performed By: #### C DP, HCG, PT, PTT, BMP #### [address] [address] Bottle Label Inspector: Ozzy Young MD Lymphocytes (Bld) [#/Vol] 2.24 10*3/uL Normal 1.20-5.20 [facility] Comment on above: Performed By: #### C DP, HCG, PT, PTT, BMP #### [address] [address] Bottle Label Inspector: Ozzy Young MD Lymphocytes/100 WBC (Bld) 25 % Normal 25-45 [facility] Comment on above: Performed By: #### C DP, HCG, PT, PTT, BMP #### [address] [address] Bottle Label Inspector: Ozzy Young MD MCH (RBC) [Entitic mass] 26.9 pg Normal 25.0-35.0 [facility] Comment on above: Performed By: #### C DP, HCG, PT, PTT, BMP #### [address] [address] Bottle Label Inspector: Ozzy Young MD MCHC (RBC) [Mass/Vol] 30.6 g/dL Normal 28.4-34.8 [facility] Comment on above: Performed By: #### C DP, HCG, PT, PTT, BMP #### [address] [address] Bottle Label Inspector: Ozzy Young MD MCV (RBC) [Entitic vol] 87.9 fL Normal 78.0-102.0 M [facility] Comment on above: Performed By: #### C DP, HCG, PT, PTT, BMP #### [address] [address] Bottle Label Inspector: Ozzy Young MD Monocytes (Bld) [#/Vol] 0.74 10*3/uL Normal 0.10-1.40 [facility] Comment on above: Performed By: #### C DP, HCG, PT, PTT, BMP #### [address] [address] Bottle Label Inspector: Ozzy Young MD Monocytes/100 WBC (Bld) 8 % Normal 2-8 M [facility] Comment on above: Performed By: #### C DP, HCG, PT, PTT, BMP #### [address] [address] Bottle Label Inspector: Ozzy Young MD Neutrophil (Seg) 65 % High 34-64 [facility] Comment on above: Performed By: #### C DP, HCG, PT, PTT, BMP #### [address] [address] Bottle Label Inspector: Ozzy Young MD NRBC Automated 0.0 per 100 WBC Normal 0.0 [facility] Comment on above: Performed By: #### C DP, HCG, PT, PTT, BMP #### [address] [address] Bottle Label Inspector: Ozzy Young MD Platelet mean volume (Bld) [Entitic vol] 10.2 fL Normal 8.1-13.5 [facility] Comment on above: Performed By: #### C DP, HCG, PT, PTT, BMP #### [address] [address] Bottle Label Inspector: Ozzy Young MD Platelets (Bld) [#/Vol] 337 10*3/uL Normal 138-453 [facility] Comment on above: Performed By: #### C DP, HCG, PT, PTT, BMP #### [address] [address] Bottle Label Inspector: Ozzy Young MD RBC (Bld) [#/Vol] 4.13 10*6/uL Normal 3.95-5.11 [facility] Comment on above: Performed By: #### C DP, HCG, PT, PTT, BMP #### [facility] [employer] [address] [place] [address] Bottle Label Inspector: Ozzy Young MD WBC (Bld) [#/Vol] 9.0 10*3/uL Normal 4.5-13.5 [facility] Comment on above: Performed By: #### C DP, HCG, PT, PTT, BMP #### [facility] [address] [place] [address] Bottle Label Inspector: Ozzy Young MD Auto Diff Performed NOT REPORTED Normal [facility] Comment on above: Performed By: #### C DP, HCG, PT, PTT, BMP #### [address] [address] Bottle Label Inspector: Ozzy Young MD Platelets (Bld) [#/Vol] NOT REPORTED Normal [facility] Comment on above: Performed By: #### C DP, HCG, PT, PTT, BMP #### [facility] [employer] [address] [place] [phone] Bottle Label Inspector: Ozzy Young MD RBC morphology finding Nom (Bld) NOT REPORTED Normal [facility] Comment on above: Performed By: #### C DP, HCG, PT, PTT, BMP #### [facility] [address] [place] [address] Bottle Label Inspector: Ozzy Young MD WBC Morphology NOT REPORTED Normal [facility] Comment on above: Performed By: #### C DP, HCG, PT, PTT, BMP #### [facility] [employer] [address] [place] [phone] Bottle Label Inspector: Ozzy Young MD HCG Screen, Bloodon 12-04-19 HCG Qn Negative Normal NEG [facility] Comment on above: Result Comment: Spec imens with hCG levels near the threshold of the test (25 mIU/mL) may give a negative or indeterminate result. In such cases, another test should be performed with a new specimen in 48-72 hours. If early is suspected clinically in this setting, correlation with quantitative serum b-hCG level is suggested. [facility] has confirmed the use of plasma for this test. This has not been cleared or approved by the U.S. Food and Drug Administration. The FDA has determined that such clearance is not necessary. Performed By: #### C DP, HCG, PT, PTT, BMP #### [facility] [employer] [address] [place] [address] [phone] Bottle Label Inspector: Ozzy Young MD HCG, SERUM, QUALITATIVEon hCG Qual Negative NEGATIVE [place] Comment on above: Specimens with hCG l evels near the threshold of the test (25 mIU/mL) may give a negative or indeterminate result. In such cases, another test should be performed with a new specimen in 48-72 hours. If early is suspected clinically in this setting, correlation with quantitative serum b-hCG level is suggested. [facility] has confirmed the use of plasma for this test. This has not been cleared or approved by the U.S. Food and Drug Administration. The FDA has determined that such clearance is not necessary. PTon 12-03-2018 INR Coag (PPP) [Relative time] 1.0 {INR} Normal [facility] Comment on above: Result Comment: Therapeutic Range: Moderate Anticoagulant Intensity: INR = 2.0-3.0 High Anticoagulant Intensity: INR = 2.5-3.5 Performed By: #### C DP, HCG, PT, PTT, BMP #### [facility] [address] [place] [address] [phone] Bottle Label Inspector: Ozzy Young MD PT Coag (PPP) [Time] 10.6 s Normal 9.0-12.0 [facility] Comment on above: Performed By: #### C DP, HCG, PT, PTT, BMP #### [facility] [employer] [address] [place] [address] [phone] Bottle Label Inspector: Ozzy Young MD Pro[facility]-INRon 12-03-2018 INR Coag (PPP) [Relative time] 1.0 {INR} [place] Comment on above: Therapeutic Range: Moderate Anticoagulant Intensity: INR = 2.0-3.0 High Anticoagulant Intensity: INR = 2.5-3.5 PT Coag (PPP) [Time] 10.6 s [place] Progress Noteon 09-30-2018 Casino Worker Authentication Interface Message Text [facility] NOTE NAME: DORIS JOHNS UNIT#: [id number] [facility]#: [id number] DATE OF : 2000 DATE OF SERVICE: [...] laxity. Negative Eleonora. IMAGING: Recent view of Doris's spine was obtained and was reviewed in [...] core strengthening, stretching, activity modifications, and as-needed [id number] pain medications. We will be referring her [...] in the future in the interim. Michelle Guzman, YONY [id number] LARA/RED [id number] Normal [facility] Casino Worker Authentication Interface Message Text My progress note has been dictated. Review of systems is negative for other significant musculoskeletal pain, loss of vision, hearing loss, high blood pressure, shortness of breath, skin ulcers, paresthesia, lymphedema, temperature intolerance,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
[2024-04-21 21:07] LABS: Age Gdln ACOG Testing Note (.); HPV Aptima Negative (Negative); IGP, rfx Aptima HPV ASCU Note (.)
== END 2024-04-12 20:24 | disposition home or self-care (01) ==
LOC: LAB 20:23
PROVIDERS: PCP Family Medicine; Visit Provider Physician Assistant
DX: Z01.419 Encounter for gynecological examination (general) (routine) without abnormal findings (principal)
CPT/HCPCS: 87624; 88175

== ENCOUNTER 2025-01-03 16:50 | Outpatient (OUT) | payer BC, SELFPAY ==
--- OUTSIDE RECORDS SUMMARY | 2025-01-03 16:58 | XMS_ITS | Clinical Summary ---
Author Organization Websense s tem Address [id number] [address] [place] [address] Care Team Providers Care Wafer Cleaner Name Role Phone Unavailable Primary Care Provider Unavailabl e Allergies No known active allergies Medications MedicationSigDispense QuantityRefillsLast FilledStart DateEnd DateStatus lamoTRIgine (LaMICtal) 200 mg tablet Take 1 tablet (200 mg total) by mouth in the morning.Active QUEtiapine (SEROquel) 300 mg tablet Take 1 tablet (300 mg total) by mouth nightly.Active cetirizine (ZyrTEC) 5 mg tablet Take 1 tablet (5 mg total) by mouth in the morning.Active omeprazole (PriLOSEC) 40 mg capsule Take 1 capsule (40 mg total) by mouth in the morning.Active naproxen (EC NAPROSYN) 500 mg EC tablet Take 1 tablet (500 mg total) by mouth in the morning and 1 tablet (500 mg total) in the evening. Take with meals.Active fluticasone propionate (FLONASE) 50 mcg/actuation nasal spray Administer 1 spray into each nostril in the morning.Active beclomethasone HFA (QVAR REDIHALER) 40 mcg/actuation Inhale 2 puffs in the morning and 2 puffs before bedtime.Active SUMAtriptan (IMITREX) 100 mg tablet Take 1 tablet (100 mg total) by mouth once as needed for migraine. May repeat in 2 hours if unresolved. Do not exceed 200 mg in 24 hours.Active hydrOXYzine (ATARAX) 25 mg tablet Take 1 tablet (25 mg total) by mouth 3 (three) times a day as needed for itching.Active propafenone SR (RYTHMOL SR) 225 mg 12 hr capsule Take 1 capsule (225 mg total) by mouth in the morning and 1 capsule (225 mg total) before bedtime.Active erenumab-aooe 70 mg/mL auto-injector Inject 70 mg under the skin every 28 days.Active ondansetron ODT (ZOFRAN ODT) 4 mg disintegrating tablet Dissolve 1 tablet (4 mg total) on tongue every 8 (eight) hours as needed for nausea for up to 10 doses. 10 tablet 06/29/2023ctive ketorolac (TORADOL) 10 mg tablet Take 1 tablet (10 mg total) by mouth every 6 (six) hours as needed for pain. 20 tablet 06/29/2023ctive acetaminophen (TYLENOL EXTRA STRENGTH) 500 mg tablet Take 1 tablet (500 mg total) by mouth every 6 (six) hours as needed for pain. 30 tablet 06/29/2023ctive Active Problems No known active problems Social History Tobacco UseTypesPacks/DayYears UsedDateSmoking Tobacco: NeverSmokeless Tobacco: Never Tobacco Cessation:Counseling Given: Not Answered Alcohol UseStandard Drinks/WeekCommentsNever0 (1 standard drink = 0.6 oz pure alcohol)Hunger ScreeningAnswerDate RecordedWithin the past 12 months we worried whether our food would run out before we got money to buy more.Never True 06/29/2023Within the past 12 months the food we bought just didn't last and we didn't have money to get more.Never True06/29/2023CommentsUnknownSex and Gender InformationValueDate RecordedSex Assigned at BirthNot on fileLegal Sex Abrqra9206/28/2023 11:22 AM EDTGender IdentityNot on fileSexual OrientationNot on file Last Filed Vital Signs Vital SignReadingTime TakenCommentsBlood Zfunyhqs444/7406/29/2023 9:45 PM EDT Qrhqd77204/15/2024 9:45 PM OKQIaijeoijjwr49.2 ??C (100.8 ??F)06/29/2023 9:16 PM EDTRespiratory Kdhu513006/29/2023 10:02 PM EDTOxygen Viilprdlbp75%06/29/2023 9:45 PM EDTInhaled Oxygen Concentration--Itpepq23.6 kg (160 lb)06/29/2023 8:36 PM EDT Bopymv692.2 cm (5' 7 )06/29/2023 8:36 PM EDTBody Mass Index25.0606/29/2023 8:36 PM EDT Plan of Treatment Not on file Medical Devices Not on file Insurance
--- OUTSIDE RECORDS SUMMARY | 2025-01-03 16:58 | XMS_ITS | Encounter Summary ---
Author Organization [facility] Address [address] [place] [address] Care Team Providers Care Pot Feeder Name Role Phone Bobbi Norman MD Primary Care Provider [phone] Encounter Details DateTypeDepartmentCare Team (Latest Contact Info)Behmcpzktcv02/20/2025Travel Social History Tobacco UseTypesPacks/DayYears UsedDateSmoking Tobacco: FormerCigarettes Smokeless Tobacco: NeverAlcohol UseStandard Drinks/WeekCommentsYes0 (1 standard drink = 0.6 oz pure alcohol)occasionalUT Safety & EnvironmentAnswerDate Recorded Fear of Current or Ex-PartnerNot on file05/08/2023Emotionally AbusedNot on file 05/08/2023hysically AbusedNot on file05/08/2023Sexually AbusedNot on file 05/08/2023hysically or Sexually AbusedNot on file05/08/2023Comments UnknownSex and Gender InformationValueDate RecordedSex Assigned at BirthFemale 09/21/2024 1:00 PM EDTLegal ItyYllwor91/19/2023 11:52 AM ESTGender Identity Iujyic7409/21/2024 1:00 PM EDTSexual OrientationHeterosexual or Xdufgstl17/09/2025 1:00 PM EDTdocumented as of this encounter Plan of Treatment DateTypeDepartmentCare Team (Latest Contact Info)Pdyhdscplue67/27/2025 8:30 AM EDTHospital Encounter [facility] [address] [place] [address] Blas Pandya MD [address] [facility] [place] [address] Paroxysmal supraventricular whtvgykulga87/27/2025 8:30 AM EDT - 01/09/2025 11:00 AM EDTSurgery [facility] [address] [place] [address] Blas Pandya MD [address] [place] [address] Electrophysiology procedure [[id number] (CPT??)]02/07/2025 9:[address] [facility] [address] [place] [address] Blas Pandya MD [address] [place] [address] documented as of this encounter Visit Diagnoses Not on filedocumented in this encounter Care Teams Team MemberRelationshipSpecialtyStart DateEnd Date Bobbi Norman MD [address] PCP - General03/17/23documented as of this encounter
--- OUTSIDE RECORDS SUMMARY | 2025-01-03 16:58 | XMS_ITS | Encounter Summary ---
Author Organization [facility] Address [address] [place] [address] Care Team Providers Care Psych Social Worker Name Role Phone Bobbi Norman MD Primary Care Provider [phone] Reason for Visit * ReasonOnset DateCommentsneed lab order01/03/2025 Encounter Details DateTypeDepartmentCare Team (Latest Contact Info)Amwxkeypbqi07/21/2025Telephone [facility] [address] [place] [address] Kaitlyn Jeffers MA need lab order Social History Tobacco UseTypesPacks/DayYears UsedDateSmoking Tobacco: FormerCigarettes Smokeless Tobacco: NeverAlcohol UseStandard Drinks/WeekCommentsYes0 (1 standard drink = 0.6 oz pure alcohol)occasionalUT Safety & EnvironmentAnswerDate Recorded Fear of Current or Ex-PartnerNot on file05/08/2023Emotionally AbusedNot on file 05/08/2023hysically AbusedNot on file05/08/2023Sexually AbusedNot on file 4Physically or Sexually AbusedNot on file05/08/2023Comments UnknownSex and Gender InformationValueDate RecordedSex Assigned at BirthFemale 09/21/2024 1:00 PM EDTLegal SwmJkytzc70/19/2023 11:52 AM ESTGender Identity Mftefv9509/21/2024 1:00 PM EDTSexual OrientationHeterosexual or Kbvzdqwn23/09/2025 1:00 PM EDTdocumented as of this encounter Miscellaneous Notes * Telephone Encounter - Kaitlyn Jeffers MA - 01/03/2025 4:52 PM EDT Per pt request faxed CBC and BMP lab orders by Dr Pandya to [facility] internally to [phone] and paper fax to [phone] documented in this encounter Plan of Treatment DateTypeDepartmentCare Team (Latest Contact Info)Rdfgqsxogzd06/27/2025 8:30 AM EDTHospital Encounter [facility] [place] [facility] [address] [place] [address] Blas Pandya MD [address] [place] [address] Paroxysmal supraventricular yyncllrkxdb50/27/2025 8:30 AM EDT - 01/09/2025 11:00 AM EDTSurgery [facility] [address] [place] [address] Blas Pandya MD [address] [place] [address] Electrophysiology procedure [[id number] (CPT??)]02/07/2025 9:00 AM ESTOffice Visit [facility] Heart at [facility] [address] [place] [address] Blas Pandya MD [address] [place] [address] documented as of this encounter Visit Diagnoses Not on filedocumented in this encounter Care Teams Team MemberRelationshipSpecialtyStart DateEnd Date Bobbi Norman MD [address] [facility] PCP - General03/17/23documented as of this encounter
--- OUTSIDE RECORDS SUMMARY | 2025-01-03 16:58 | XMS_ITS | Clinical Summary ---
Author Organization [facility] Address [address] [place] [address] Care Team Providers Care Concrete Inspector Name Role Phone Bobbi Norman MD Primary Care Provider [phone] Allergies No known active allergies Medications MedicationSigDispense QuantityRefillsLast FilledStart DateEnd DateStatus hydrOXYzine HCl (Atarax) 25 MG tablet 1 (one) time each day at the same timeActive erenumab (Aimovig) 70 MG/ML injection Active ARIPiprazole (Abilify) 15 MG tablet Take 7.5 mg by mouth in the morning.Active albuterol HFA 90 mcg/act inhaler 2 puffs Inhalation 4 times a day or as needed for shortness of breathActive cetirizine (ZyrTEC ALLERGY) 10 MG tablet 1 (one) time each day at the same timeActive lamoTRIgine (LaMICtal) 200 MG tablet Take 1 tablet by mouth in the morning.Active naproxen (Naprosyn) 500 MG tablet every 12 (twelve) hoursActive omeprazole (PriLOSEC) [address] capsule 1 (one) time each day at the same timeActive SUMAtriptan (Imitrex) 100 MG tablet ONE TABLET FOR MIGRAINE NOKCHS7412/01/2022ctive drospirenone-ethinyl estradiol (Maria A, Ocella) 3-0.03 MG tablet Indications:Uses controlTAKE 1 TABLET BY MOUTH IN THE MORNING. 84 tablet //20240317/5Active Lybalvi 15-10 MG per tablet Take 1 tablet by mouth 1 (one) time each day at the same time11/04/2023ctive propafenone (Rythmol) 225 MG tablet Take 225 mg by mouth every 8 (eight) hoursActive topiramate 50 MG tablet Take 50 mg by mouth 1 (one) time each day at the same time11/04/2023ctive Family History RelationNameStatusCommentsBrotherAlive Social History Tobacco UseTypesPacks/DayYears UsedDateSmoking Tobacco: Never Tobacco Cessation:Counseling Given: Not Answered Alcohol UseStandard Drinks/WeekCommentsNever0 (1 standard drink = 0.6 oz pure alcohol)CommentsUnknownSex and Gender InformationValueDate RecordedSex Assigned at DynhvOyhysx36/03/2024 11:43 AM ESTLegal ObtJlxukm92/15/2023 6:58 PM EDTGender UmxrtbcjGsxvtq15/03/2024 11:43 AM ESTSexual OrientationBisexual 03/18/2023 11:43 AM EST Last Filed Vital Signs Vital SignReadingTime TakenCommentsBlood Jaloqikn987/70004/12/2024 9:23 AM EST Pulse--Temperature--Respiratory Rate--Oxygen Saturation--Inhaled Oxygen Concentration--Amampl82.5 kg (184 lb 1.9 oz)04/12/2024 9:23 AM ZPUKrlqkg814.9 cm (5' 6.5 )02/14/2022 12:00 PM ESTBody Mass Index29.27104/17/2021 12:00 PM EST Plan of Treatment DateTypeDepartmentCare Team (Latest Contact Info)Nzjnoahujwj28/02/2026 11:00 AM ESTOffice Visit [facility] [address] [place] [address] Melinda Dumont PA [address] [place] [address] Insurance Care Teams Team MemberRelationshipSpecialtyStart DateEnd Date Bobbi Norman MD PCP - GeneralFamily Medicine03/19/23
--- OUTSIDE RECORDS SUMMARY | 2025-01-03 16:58 | XMS_ITS | Clinical Summary ---
Author Organization [facility] Address [address] [place] [address] Phone Care Team Providers Care Dairy Cattle Farmer Name Role Phone Unavailable Primary Care Provider Unavailabl e Social History Tobacco UseTypesPacks/DayYears UsedDateSmoking Tobacco: Never Assessed CommentsUnknownSex and Gender InformationValueDate RecordedSex Assigned at Not on fileLegal PolNumjwx29/12/2023 2:56 PM ESTGender IdentityNot on fileSexual OrientationNot on file Plan of Treatment Health MaintenanceDue DateLast DoneCommentsHIV Sonhqzfst85/14/2001Lipid Panel 2000Yearly Adult Vpozbbnd11/14/2001MMR Vaccines (1 of 1 - Standard series) 2001HPV Vaccines (1 - 3-dose series)11/28/2015Hepatitis C Screening 2018Hepatitis B Vaccines (1 of 3 - 19+ 3-dose series)11/28/2019Cervical Cancer Ljudkbbwm03/14/2022HPV/Rondjn602Pap Smear2DTaP/Tdap/Td Vaccines (1 - Tdap)2022Influenza Vaccine (#1)2024OVID-19 Vaccine (1 - 2024- season)2024Zoster Vaccines (1 of 2)2050HIB VaccinesAged OutNo longer eligible based on patient's age to complete this topicHepatitis A VaccinesAged OutNo longer eligible based on patient's age to complete this topic IPV VaccinesAged OutNo longer eligible based on patient's age to complete this topicMeningococcal VaccineAged OutNo longer eligible based on patient's age to complete this topicPneumococcal Vaccine: Pediatrics and At-Risk Adult Patients Aged OutNo longer eligible based on patient's age to complete this topic Rotavirus VaccinesAged OutNo longer eligible based on patient's age to complete this topic Insurance * Guarantor: Yomaira Riley TypeRelation to PatientDate of PhoneBilling AddressPersonal/XrdphvTfzmyz86/[birth year][address] [place] [id number] MemberSubscriberPlan / Payer (Effective 2022-Present)Name:Ria Riley Relation to Subscriber:ChildName:RENEA RILEY Date of :1975 (Home) Address: [address] [place] [address] Payer ID:[id number] (NAIC) Type:Not on file Address: [address] [place] [phone] * Guarantor: Yomaira Riley TypeRelation to PatientDate of PhoneBilling AddressPersonal/LzrohjXqyxfx88/20/1976 [address] [place] [phone]
--- OUTSIDE RECORDS SUMMARY | 2025-01-03 16:58 | XMS_ITS | Encounter Summary ---
Author Organization [facility] Address [address] [address] Care Team Providers Care Cafeteria Supervisor Name Role Phone Bobbi Norman MD Primary Care Provider Encounter Details DateTypeDepartmentCare Team (Latest Contact Info)Pncenrcriww50/20/2025Orders Only [facility] Heart [facility] [place] [facility] [address] [place] [address] Kasey Renee RN Paroxysmal supraventricular tachycardia (Primary Dx) Social History Tobacco UseTypesPacks/DayYears UsedDateSmoking Tobacco: FormerCigarettes Smokeless Tobacco: NeverAlcohol UseStandard Drinks/WeekCommentsYes0 (1 standard drink = 0.6 oz pure alcohol)occasionalUT Safety & EnvironmentAnswerDate Recorded Fear of Current or Ex-PartnerNot on file05/08/2023Emotionally AbusedNot on file 05/08/2023hysically AbusedNot on file05/08/2023Sexually AbusedNot on file 05/08/2023hysically or Sexually AbusedNot on file05/08/2023Comments UnknownSex and Gender InformationValueDate RecordedSex Assigned at BirthFemale 09/21/2024 1:00 PM EDTLegal CbmDqvkht58/19/2023 11:52 AM ESTGender Identity Dbfccq7709/21/2024 1:00 PM EDTSexual OrientationHeterosexual or Elteagtq61/09/2025 1:00 PM EDTdocumented as of this encounter Plan of Treatment DateTypeDepartmentCare Team (Latest Contact Info)Dopnvbpsdla56/27/2025 8:30 AM EDTHospital Encounter [facility] Heart [facility] [place] [facility] [address] [place] [address] Blas Pandya MD [address] [place] [address] Paroxysmal supraventricular ifbpvgmdoom00/27/2025 8:30 AM EDT - 01/09/2025 11:00 AM EDTSurgery [facility] [place] [facility] [address] [place] [address] Blas Pandya MD [address] [facility] [place] [address] Electrophysiology procedure [[id number] (CPT??)]02/07/2025 9:00 AM ESTOffice Visit [facility] [address] [place] [address] Blas Pandya MD [address] [place] [address] NameTypePriorityAssociated DiagnosesOrder ScheduleCBCLabRoutine Paroxysmal supraventricular tachycardia Expected: 01/02/2025 (Approximate), Expires: 01/02/2026asic metabolic panelLab Routine Paroxysmal supraventricular tachycardia Expected: 01/02/2025 (Approximate), Expires: 01/02/2026documented as of this encounter Visit Diagnoses Diagnosis Paroxysmal supraventricular tachycardia- Primary Paroxysmal supraventricular tachycardia- Primary Paroxysmal supraventricular tachycardia documented in this encounter Care Teams Team MemberRelationshipSpecialtyStart DateEnd Date Bobbi Norman MD [address] PCP - General03/17/23documented as of this encounter
--- OUTSIDE RECORDS SUMMARY | 2025-01-03 16:58 | XMS_ITS | Clinical Summary ---
Author Organization [facility] Address [address] [address] Care Team Providers Care Medical Case Worker Name Role Phone Bobbi Norman MD Primary Care Provider [phone] Allergies Active AllergyReactionsCriticalityNoted JdkjGiarjocoQrdfxmfvwyayDlrcw32/18/2025 Medications MedicationSigDispense QuantityRefillsLast FilledStart DateEnd DateStatus albuterol 90 mcg/actuation inhaler Inhale 2 puffs.10/02/2020ctive cetirizine (ZyrTEC) 10 mg tablet Take 1 tablet by mouth in the morning.03/03/2018Active erenumab-aooe 140 mg/mL auto-injector Inject 140 mg under the skin.12/01/2022ctive hydrOXYzine HCL (Atarax) 25 mg tablet 12/30/2021ctive lamoTRIgine (LaMICtal) 200 mg tablet Take 1 tablet by mouth in the morning.Active omeprazole (PriLOSEC) [address] capsule Take 1 capsule by mouth in the morning.09/12/2021ctive SUMAtriptan (Imitrex) 100 mg tablet ONE TABLET FOR MIGRAINE NVPKTN2212/01/2022ctive olanzapine-samidorphan (Lybalvi) 10-10 mg tablet Take 1 tablet by mouth in the morning.Active drospirenone-ethinyl estradioL (Maria A, Ocella) 3-0.03 mg tablet Take 1 tablet by mouth in the morning./tive topiramate 50 mg tablet Take 50 mg by mouth 1 (one) time each day at the same time.11/04/2023ctive propafenone SR (Rythmol SR) 325 mg 12 hr capsule Indications:Paroxysmal supraventricular tachycardiaTake 1 capsule (325 mg) by mouth two times daily. Do not crush, chew, or split. 60 capsule 110/ctive Active Problems ProblemNoted DateDiagnosed DateParoxysmal supraventricular cenvqmbjeaw80/03/2025 Closed compression fracture of L2 lumbar vertebra, initial fblmhyjwh73/03/2025 Bipolar disorder, current episode mixed, rpevpvby08/16/2024Wellness examination 09/29/2023Seasonal pyoehzufh72omplicated dwofsmni71/07/2021 03/17/2023H/O motion xewuaccq87Inadequate sleep hygiene Sinus mucosal capwanvops56nxiety ipolar affective disorder, currently manic, mild12/01/2019 03/17/2023Family history of bipolar qdggzaad32Family history of ififahnt73Major depressive disorder with single episode, in full dmdbljlgi57Intractable migraine without aura and with status qmcaofrovzv79Frontal hlwututl14 Vsdfhxtmo95dolescent idiopathic iissqtrug54 Bipolar btvszgcz72MI (body mass index), pediatric, 85% to less than 95% for age11 Encounters DateTypeDepartmentCare GcelLotawvuecxi27/21/2025Telephone [facility] [address] [place] [address] Kaitlyn Jeffers MA need lab order01/02/20256150Qhdsxj98/20/2025Orders Only [facility] V[facility] [address] [place] [address] Thelma, Kasey, RN Paroxysmal supraventricular tachycardia (Primary Dx)11/16/2024Orders Only [facility] [address] [facility] [place] [address] Jade Eagle MA Paroxysmal supraventricular tachycardia (Primary Dx)11/15/2024Telephone [facility] [address] [facility] [place] [address] Jade Eagle MA 11/03/2024 10:20 AM EDTOffice Visit [facility] [address] [facility] [place] [address] Lory Conroy CNP Paroxysmal supraventricular tachycardia (Primary Dx); SVT (supraventricular tachycardia); Syncope and collapse; Palpitations; Shortness of sovafs4010/20/2024Orders Only [facility] [address] [facility] [place] [address] Provider, MD John 10/20/2024bstract [facility] [address] [facility] [place] [address] Jade Eagle MA 10/19/2024Telephone [facility] [address] [facility] [place] [address] Jade Eagle MA from Last 3 Months Family History Medical HistoryRelationNameCommentsHyperlipidemiaFatherAtrial fibrillation Maternal GrandmotherCoronary artery diseaseMaternal GrandmotherHeart failure Maternal GrandmotherHyperlipidemiaMotherRelationNameStatusCommentsFatherAlive Maternal GrandmotherMotherAlive Social History Tobacco UseTypesPacks/DayYears UsedDateSmoking Tobacco: FormerCigarettes Smokeless Tobacco: Never Tobacco Cessation:Counseling Given: Not Answered Alcohol UseStandard Drinks/WeekCommentsYes0 (1 standard drink = 0.6 oz pure alcohol)occasionalUT Safety & EnvironmentAnswerDate RecordedFear of Current or Ex-PartnerNot on file05/08/2023Emotionally AbusedNot on file05/08/2023hysically AbusedNot on file05/08/2023Sexually AbusedNot on file05/08/2023hysically or Sexually AbusedNot on file05/08/2023CommentsUnknownSex and Gender InformationValueDate RecordedSex Assigned at IgztrMtcbfd31/09/2025 1:00 PM EDT Legal WugMvfjlp90/19/2023 11:52 AM ESTGender VkoacmllRbhctv95/09/2025 1:00 PM EDTSexual OrientationHeterosexual or Qihhnosa04/09/2025 1:00 PM EDT Last Filed Vital Signs Vital SignReadingTime TakenCommentsBlood Vsbzwmom316/7808 10:25 AM EDT Edequ640111/03/2024 10:25 AM EDTTemperature--Respiratory Bprz728206/01/2023 9:18 AM EDTOxygen Gjbplohtti51%11/03/2024 10:25 AM EDTInhaled Oxygen Concentration-- Xppclm41 kg (183 lb)11/03/2024 10:25 AM IKRJhilpm347.2 cm (5' 7 )11/03/2024 10:25 AM EDTBody Mass Index28.6608 10:25 AM EDT Plan of Treatment DateTypeDepartmentCare Team (Latest Contact Info)Hrwlswkggjs87/27/2025 8:30 AM EDTHospital Encounter [facility] [address] [place] [address] Blas Pandya MD [address] [place] [address] Paroxysmal supraventricular viqjixaladz36/27/2025 8:30 AM EDT - 01/09/2025 11:00 AM EDTSurgery [facility] [place] [facility] [address] [place] [address] Blas Pandya MD [address] [place] [address] Electrophysiology procedure [96527 (CPT??)]02/07/2025 9:00 AM ESTOffice Visit [facility] [address] [place] [address] Blas Pandya MD [address] [place] [address] Health MaintenanceDue DateLast DoneCommentsDepression Amegaucqp03/14/2013Pap Smear2Adult Sjzryfk90/COVID-19 Vaccine ( season)502/, 04/18/2020Influenza Vaccine (#1)2024 02/05/2022, 01/30/2021, 03/08/2018, Additional history existsZoster Vaccines (1 of 2), 12/14/2001HIB NdexfsywPivhgoeuv97/01/2002, 06/15/2001, 03/22/2001, Additional history existsPneumococcal Vaccine: Pediatrics (0 to 5 Years) and At-Risk Patients (6 to 64 Years)Aged Out 06/16/2002, 09/20/2001, 03/22/2001, Additional history existsNo longer eligible based on patient's age to complete this topicIPV VckxjtteKjddqxblg35/22/2006, 06/15/2001, 03/22/2001, Additional history existsVaricella VaccinesCompleted 11/04/2005, 12/14/2001HPV GbqoveutFcrzaatql59/19/2014, 12/09/2012Meningococcal UqyfcevZrgtbabdo62/02/2018, 12/09/2012Meningococcal B VaccineCompleted 10/14/2019, 10/18/2018Rotavirus VaccinesAged OutNo longer eligible based on patient's age to complete this topic Procedures Procedure NamePriorityDate/TimeAssociated DiagnosisCommentsECG 12-LEADRoutine 10/20/2024 10:29 AM EDTXR CHEST 2 KXBOUBtgkuhq76/07/2025 9:06 AM EDT COMPREHENSIVE METABOLIC SWMEHUuekkmf95/07/2025 9:05 AM OQCBOZBmrxbjk80/07/2025 9:05 AM EDTHIGH SENSITIVITY TROPONIN IIfcwois77/07/2025 9:05 AM EDTB-TYPE NATRIURETIC JSNNLAQShyojxk03/07/2025 9:05 AM CNLIJCBeaozxt29/07/2025 9:05 AM EDT from Last 3 Months Results * ECG 12 lead (10/20/2024 10:29 AM EDT) Narrative Authorizing ProviderResult TypeResult StatusHistorical Provider MDECG ORDERABLES Final Result * XR chest 2 views (10/20/2024 9:06 AM EDT)Anatomical RegionLateralityModality ChestComputed Radiography Narrative Authorizing ProviderResult TypeResult StatusHistorical Provider MDIMG XR PROCEDURESFinal Result * High Sensitivity Troponin I (10/20/2024 9:05 AM EDT)Specimen (Source) Anatomical Location / LateralityCollection Method / VolumeCollection Time Received TimeBloodVenous blood specimen / Unknown Narrative Authorizing ProviderResult TypeResult StatusHistorical Provider MDLAB BLOOD ORDERABLESFinal Result * CBC (10/20/2024 9:05 AM EDT)Specimen (Source)Anatomical Location / Laterality Collection Method / VolumeCollection TimeReceived TimeBloodVenous blood specimen / Unknown Narrative Authorizing ProviderResult TypeResult StatusHistorical Provider MDLAB BLOOD ORDERABLESFinal Result * TSH (10/20/2024 9:05 AM EDT)Specimen (Source)Anatomical Location / Laterality Collection Method / VolumeCollection TimeReceived TimeBloodVenous blood specimen / Unknown Narrative Authorizing ProviderResult TypeResult StatusHistorical Provider MDLAB BLOOD ORDERABLESFinal Result * B-type natriuretic peptide (10/20/2024 9:05 AM EDT)Specimen (Source)Anatomical Location / LateralityCollection Method / VolumeCollection TimeReceived Time BloodVenous blood specimen / Unknown Narrative Authorizing ProviderResult TypeResult StatusHistorical Provider MDLAB BLOOD ORDERABLESFinal Result * Comprehensive metabolic panel (10/20/2024 9:05 AM EDT)Specimen (Source) Anatomical Location / LateralityCollection Method / VolumeCollection Time Received TimeBloodVenous blood specimen / Unknown Narrative Authorizing ProviderResult TypeResult StatusHistorical Provider MARBELLA BLOOD ORDERABLESFinal Result from Last 3 Months Insurance Care Teams Team MemberRelationshipSpecialtyStart DateEnd Date Bobbi Norman MD [address] [facility] [address] PCP - General03/17/23
--- OUTSIDE RECORDS SUMMARY | 2025-01-03 16:58 | XMS_ITS | CCD ---
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 0.03-0.18FCleveland Clinic Mercy HospitalComment on above:If the DBIL is less than 0.1, IBIL is not able to becalculated.Bilirubin.total [Mass/volume] in Serum or PlasmaOrdered By: Nelson Carcamo on 23-78-3687Pseyqomju [Mass/Vol] 0.3 mg/dLNormal0.3-1.0Cl[facility] HospitalComment on above: Performed By: #### HEPATIC, MG, BMP, TSH3 ####[address] [place] [address] USACalcium [Mass/volume] in Serum or Plasma Ordered By: Nelson Carcamo on 35-30-8205Nkmnlve [Mass/Vol]9.5 mg/dLNormal 8.6-10.3FCleveland Clinic Mercy HospitalComment on above:Performed By: #### HEPATIC, MG, BMP, TSH3 ####[facility] [place] [address] USACarbon dioxide, total [Moles/volume] in Serum or PlasmaOrdered By: Nelson Carcamo on 00-48-5000GT9 [Moles/Vol]24.5 mmol/L Pjqdeu07.0-31.0Cl[facility] HospitalComment on above:Performed By: #### HEPATIC, MG, BMP, TSH3 ####[facility] [place] [address] USAChloride [Moles/volume] in Serum or PlasmaOrdered By: Nelson Carcamo on 34-88-2187Bpnkqeqe [Moles/Vol]111 mmol/NMrau90-742 [facility] HospitalComment on above:Performed By: #### HEPATIC, MG, BMP, TSH3 ####[facility] [place] [address] USAComplete Blood Count Auto Diffon 65-76-3153Ztuh Corpuscular HGB Conc 33.7 g/bNZsbkug03.0-35.0The [facility]park Physician GroupComment on above:Performed By: #### CK, PT, HS TROP, BNP, CBC #### [facility] [address] [place] [address] USAMonocytes/100 WBC (Bld)17.37 %Normal0.00-20.00The [facility]park Physician GroupComment on above:Performed By: #### CK, PT, HS TROP, BNP, CBC #### [facility] [address] [place] [address] USANRBC%0.0 /100{WBC}Normal0-0.5The [facility] Comment on above:Performed By: #### CK, PT, HS TROP, BNP, CBC #### [facility] [address] [place] [address] USAWhite Blood Count8.2 [CFU]/mLNormal3.8-11.6The [facility] Physician GroupComment on above:Performed By: #### CK, PT, HS TROP, BNP, CBC #### [facility] [address] [place] [address] USACreatine kinase [Enzymatic activity/volume] in Serum or PlasmaOrdered By: Nelson Carcamo on 46-85-8316GR [Catalytic activity/Vol]36 U/PYtqcdr97-590CxgfydzylClinton Memorial HospitalComment on above:Performed By: #### CK, PT, HS TROP, BNP, CBC #### [facility] [address] [place] [address] USACreatinine [Mass/volume] in Serum or PlasmaOrdered By: Nelson Carcamo on 34-86-1521Fjarohhfze [Mass/Vol]0.83 mg/dLNormal0.60-1.20 [facility] HospitalComment on above:Performed By: #### HEPATIC, MG, BMP, TSH3 ####[facility] [address] [place] [address] USAECG 12 lead ECGon 15-03-0286EBO 12 lead ECGMER[facility] [place] [address] [place] [address] Electrocardiograph Report Signed Patient: Doris Johns MR#: [id number] : 2000 Acct:[id number] Age/Sex: 23 / F ADM Date: 10/19/24 Loc: ER Room: Type: [facility] ER Attending Dr: Ordering Provider: Nelson Carcamo DO Date of Service: 10/19/2409/08/1015 ECG/ECG 12 lead ECG: Arrhythmia/Palpitations Copies to: Test Reason : Blood Pressure : 135/81 mmHG Vent. Rate : 85 BPM Atrial Rate : 85 BPM P-R Int : 144 ms QRS Dur : 84 ms QT Int : 360 ms P-R-T Axes : 68 76 48 degrees QTcB Int : 428 ms Normal sinus rhythm Confirmed by Nelson CARCAMO DO ([id number]) on 10/19/2024 12:02:08 PM Referred By: Electronically Signed By: Nelson CARCAMO DO Transcribed By: MUS Signed By Nelson Carcamo, 0 10/19/24 1202[facility] Phys[facility] GroupEosinophils [#/volume] in Blood by Automated countOrdered By: Nelson Carcamo on 35-59-9364Jqfalwhygif (Bld) [#/Vol]0.0 10*3/uLNormal0.0-0.45Cl[facility] HospitalComment on above:Performed By: #### CK, PT, HS TROP, BNP, CBC #### [facility] [address] [place] [address] USAEosinophils/100 leukocytes in Blood by Automated count Ordered By: Nelson Carcamo on 30-37-5612Yaluywoqtlr/100 WBC (Bld)0.5 %Normal. Clinton Memorial HospitalComment on above:Performed By: #### CK, PT, HS TROP, BNP, CBC #### [facility] [address] [place] [address] USAErythrocyte distribution width [Ratio] by Automated count Ordered By: Nelson Carcamo on 53-82-3774Etcwklbhukn distribution width (RBC) [Ratio]13.3 %Gaotqg37.9-15.3FCleveland Clinic Mercy HospitalComment on above: Performed By: #### CK, PT, HS TROP, BNP, CBC #### [facility] [address] [place] [address] USAErythrocytes [#/volume] in Blood by Automated countOrdered By: Nelson Carcamo on 03-74-4788NRT (Bld) [#/Vol]4.94 10*6/uLNormal3.60-5.00 [facility] HospitalComment on above:Performed By: #### CK, PT, HS TROP, BNP, CBC #### [facility] [address] [place] [address] USAGlucose [Mass/volume] in Serum or PlasmaOrdered By: Nelson Carcamo on 66-56-1158Cylnluc [Mass/Vol]97 mg/sKNqfzib30-945AsuqscltaClinton Memorial HospitalComment on above:ADA recommended reference rangeRandom Glucose Reference Range is dependent on time and content of last meal. Glucose of more than 200 mg/dL in a nonstressed, ambulatory subject supports the diagnosisof Diabetes Mellitus.Result Comment: Random Glucose Reference Range is dependent on time and content of last meal. Glucose of more than 200 mg/dL in a nonstressed, ambulatory subject supports the diagnosis of Diabetes Mellitus. ADA recommended reference rangePerformed By: #### HEPATIC, MG, BMP, TSH3 ####[facility] [address] [place] [address] USAHCG ( test) IA.rapid Ql (U)Ordered By: Nelson Carcamo on 07-55-4604XCH ( test) Ql (U)NegativeClinton Memorial HospitalHCG,Urineon 98-23-9050Eolt HCG ( test) Ql (U)NegativeNormalThe [facility] Southpark Physician GroupComment on above:Result Comment: PERFORMED BY: [place] [address] PATHOLOGIST LODGING FACILITIES MANAGER TEO OROZCO M.D.Performed By: #### UHCG #### [place] [address] USAHematocrit [Volume Fraction] of Blood by Automated count Ordered By: Nelson Carcamo on 51-08-9327Fadydaztvo (Bld) [Volume fraction] 43.9 %Gdwmfq01.0-46.4FCleveland Clinic Mercy HospitalComment on above:Performed By: #### CK, PT, HS TROP, BNP, CBC #### [place] [address] USAHemoglobin [Mass/volume] in BloodOrdered By: Nelson Carcamo on 82-93-3360Decmywvyoq (Bld) [Mass/Vol]14.8 g/jYFzeicy38.8-15.4 [facility] HospitalComment on above:Performed By: #### CK, PT, HS TROP, BNP, CBC #### [address] [address] USAHepatic Panelon 67-58-3069Iyngsrw [Mass/Vol]4.0 g/dLNormal 3.5-5.7The [facility] Physician GroupComment on above:Performed By: #### HEPATIC, MG, BMP, TSH3 ####[facility] [place] [address] USABilirubin,Indirect0.3 mg/dLNormalThe [facility] Southpark Physician GroupComment on above:Performed By: #### HEPATIC, MG, BMP, TSH3 ####[facility] [place] [address] USABilirubin.indirect [Mass/Vol] 0.00 mg/dLLow0.03-0.18The [facility] Physician GroupComment on above:Result Comment: If the DBIL is less than 0.1, IBIL is not able to be calculated.Performed By: #### HEPATIC, MG, BMP, TSH3 ####[facility] [place] [address] USAINR in Platelet poor plasma by Coagulation assayOrdered By: Nelson Carcamo on 43-37-3385KDE Coag (PPP) [Relative time]1.0 {INR}[facility]hesda North HospitalComment on above: INR Therapeutic Range A) Pre- and Peroperative OAT started two weeks before surgery. NOT HIP SURGERY: 1.5 - 2.5 HIP SURGERY: 2 - 3B) Primary and secondary prevention of venous THROMBOSIS: 2 - 3C) Active venous thrombosis, pulmonary embolismand prevention of recurrent venous thrombosis: 2 - 3D) Prevention of arterial thromboembolismincluding patients with mechanical heart valves: 3 - 4.5 Result Comment: INR Therapeutic Range A) Pre- and Peroperative OAT started two weeks before surgery. NOT HIP SURGERY: 1.5 - 2.5 HIP SURGERY: 2 - 3 B) Primary and secondary prevention of venous THROMBOSIS: 2 - 3 C) Active venous thrombosis, pulmonary embolism and prevention of recurrent venous thrombosis: 2 - 3 D) Prevention of arterial thromboembolism including patients with mechanical heart valves: 3 - 4.5 PERFORMED BY: [facility] [address] [place] [address] PATHOLOGIST LODGING FACILITIES MANAGER TEO OROZCO M.D.Performed By: #### CK, PT, HS TROP, BNP, CBC #### [facility] [address] [place] [address] USALeukocytes [#/volume] corrected for nucleated erythrocytes in Blood by Automated counOrdered By: Nelson Carcamo on 87-31-7398EEP corrected for nucl RBC Auto (Bld) [#/Vol]8.2 10*3/uL3.8-11.6FCleveland Clinic Mercy HospitalLeukocytes [#/volume] in Blood by Automated countOrdered By: Nelson Carcamo on 25-26-2247PQX (Bld) [#/Vol]8.2 10*3/uLNormal3.8-11.6 [facility] HospitalComment on above:Performed By: #### CK, PT, HS TROP, BNP, CBC #### [facility] [address] [place] [address] USALymphocytes [#/volume] in Blood by Automated countOrdered By: Nelson Carcamo on 17-09-1804Lfhgulmpmei (Bld) [#/Vol]2.2 10*3/uLNormal 1.00-4.8Cl[facility] HospitalComment on above:Performed By: #### CK, PT, HS TROP, BNP, CBC #### [facility] [address] [place] [address] USALymphocytes/100 leukocytes in Blood by Automated count Ordered By: Nelson Carcamo on 90-31-0224Zkytdatnjfc/100 WBC (Bld)27.5 %Normal .Clinton Memorial HospitalComment on above:Performed By: #### CK, PT, HS TROP, BNP, CBC #### [facility] [address] [place] [address] [facility] [Entitic mass] by Automated countOrdered By: Nelson Carcamo on 62-42-3278JXY (RBC) [Entitic mass]29.9 qpIsnbsa50.7-34.3FCleveland Clinic Mercy HospitalComment on above:Performed By: #### CK, PT, HS TROP, BNP, CBC #### [facility] [address] [place], [place] [address] USAHC Auto (RBC) [Mass/Vol]Ordered By: Nelson Carcamo on 91-74-3861GJLU (RBC) [Mass/Vol]33.7 g/dL32.0-35.0Cl[facility] Memorial HospitalMCV [Entitic volume] by Automated countOrdered By: Nelson Carcamo on 22-79-0349TRB (RBC) [Entitic vol]88.8 cGHytave20-914TcfkzysuqClinton Memorial HospitalComment on above:Performed By: #### CK, PT, HS TROP, BNP, CBC #### [facility] [address] [place] [address] USAMagnesium [Mass/volume] in Serum or PlasmaOrdered By: Nelson Carcamo on 56-06-4500Hlthwzypz [Mass/Vol]2.0 mg/dLNormal1.9-2.7 [facility] HospitalComment on above:Performed By: #### HEPATIC, MG, BMP, TSH3 ####[facility] [address] [place] [address] USAMonocyte distribution width [Entitic volume] in Blood by Automated Ordered By: Nelson Carcamo on 07-80-1967Epmtljrj distribution width Auto (Bld) [Entitic vol]17.37 %0.00-20.00Cl[facility] Memorial HospitalMonocytes [#/volume] in Blood by Automated countOrdered By: Nelson Carcamo on 09-92-1431Anszamtkg (Bld) [#/Vol]0.5 10*3/uLNormal0.0-0.8Cl[facility] HospitalComment on above:Performed By: #### CK, PT, HS TROP, BNP, CBC #### [facility] [address] [place] [address] USAMonocytes/100 leukocytes in Blood by Automated count Ordered By: Nelson aCrcamo on 65-90-1235Xaceylbvk/100 WBC (Bld)6.3 %Normal. [facility] HospitalComment on above:Performed By: #### CK, PT, HS TROP, BNP, CBC #### [facility] [address] [place] [address] USANeutrophils [#/volume] in Blood by Automated countOrdered By: Nelson Carcamo on 80-41-0820Rnyfrefxfox (Bld) [#/Vol]5.3 10*3/uLNormal 1.8-7.7FCleveland Clinic Mercy HospitalComment on above:Performed By: #### CK, PT, HS TROP, BNP, CBC #### [facility] [address] [place] [address] USANeutrophils/100 leukocytes in Blood by Automated count Ordered By: Nelson Carcamo on 53-66-3193Lawhkcyntjx/100 WBC (Bld)65.0 %Normal .Cl[facility] HospitalComment on above:Performed By: #### CK, PT, HS TROP, BNP, CBC #### [facility] [address] [place] [address] USANo Panel InformationOrdered By: Nelson Carcamo on 05-80-2094Yhjxtmhxd GFR (CKD-EPI)> 60.0 mL/MinClinton Memorial Hospital Pharmacy Creatinine Clearance (Dpzw831.86[facility] Nucleated erythrocytes [Presence] in Blood by Automated countOrdered By: Nelson Carcamo on 00-57-4431Tsuhmoeql RBC Auto Ql (Bld)0.0 /100{WBC}0-0.5 Clinton Memorial HospitalPlatelet mean volume [Entitic volume] in Blood by Automated countOrdered By: Nelson Carcamo on 32-25-5904Cwanjzmd mean volume (Bld) [Entitic vol]8.5 fLNormal6.3-10.7FCleveland Clinic Mercy Hospital Comment on above:Performed By: #### CK, PT, HS TROP, BNP, CBC #### [facility] [address] [place] [address] USAPlatelets [#/volume] in Blood by Automated countOrdered By: Nelson Carcamo on 66-24-3305Wtyktrhwj (Bld) [#/Vol]318 10*3/uLNormal 150-450Cl[facility] Memorial HospitalComment on above:Performed By: #### CK, PT, HS TROP, BNP, CBC #### [facility] [address] [place] [address] USAPotassium [Moles/volume] in Serum or PlasmaOrdered By: Nelson Carcamo on 91-56-9713Mnelzgazq [Moles/Vol]4.1 mmol/LNormal3.5-5.1 [facility] HospitalComment on above:Performed By: #### HEPATIC, MG, BMP, TSH3 ####[facility] [place] [address] USAProtein [Mass/volume] in Serum or PlasmaOrdered By: Nelson Carcamo on 66-69-8808Xmxengo [Mass/Vol]7.4 g/dLNormal6.4-8.9Cl[facility] HospitalComment on above:Performed By: #### HEPATIC, MG, BMP, TSH3 ####[place] [address] [place] [address] USAProthrombin time (PT) Ordered By: Nelson Carcamo on 02-94-6291ZZ Coag (PPP) [Time]11.1 sNormal 9.0-12.9Cl[facility] Memorial HospitalComment on above:A hematocrit value greater than 55% may lead to inaccurate results in coagulation testing. Patients having hematocrit values >55% require a special collection tube for coagulation studies. Please contact the laboratory at [phone] for redraw instructions. Result Comment: A hematocrit value greater than 55% may lead to inaccurate results in coagulation testing. Patients having hematocrit values >55% require a special collection tube for coagulation studies. Please contact the laboratory at [phone] for redraw instructions.Performed By: #### CK, PT, HS TROP, BNP, CBC #### [facility] [address] [place] [address] USASerum globulin measurement by calculation (mass/volume) Ordered By: Nelson Carcamo on 99-61-1870Zsgwoaex (S) [Mass/Vol]3.4 g/dLNormal [facility] HospitalComment on above:Performed By: #### HEPATIC, MG, BMP, TSH3 ####[place] [address] [place] [address] USASerum or plasma albumin/globulin mass ratioOrdered By: Nelson Carcamo on 10-19-2500Fbwqiqu/Globulin [Mass ratio]1.2 {ratio}NormalClinton Memorial HospitalComment on above:Performed By: #### HEPATIC, MG, BMP, TSH3 ####[facility] [place] [address] [place] Serum or plasma anion gap determinationOrdered By: Nelson Carcamo on 80-93-9998Kfage gap [Moles/Vol]9.6 mmol/LNormal6.0-15.0Cl[facility] HospitalComment on above:Performed By: #### HEPATIC, MG, BMP, TSH3 ####[place] [address] [place] [address] USASerum or plasma non-glucuronidated bilirubin measurement (mass/volume)Ordered By: Nelson Carcamo on 99-80-1370Hpjuvswgo.indirect [Mass/Vol]0.3 mg/dLRegency Hospital Toledoodium [Moles/volume] in Serum or PlasmaOrdered By: Nelson Carcamo on 34-61-0203Hqemos [Moles/Vol]141 mmol/XKcuqra695-636 [facility] HospitalComment on above:Performed By: #### HEPATIC, MG, BMP, TSH3 ####[place] [address] USAThyrotropin [Units/volume] in Serum or PlasmaOrdered By: Nelson Carcamo on 85-88-0694PHR Qn1.82 m[IU]/LNormal0.45-5.33Cl[facility] Memorial HospitalComment on above:Result Comment: PERFORMED BY: [place] [address] PATHOLOGIST LODGING FACILITIES MANAGER TEO OROZCO M.D.Performed By: #### CUU #### [place] [address] USATroponin I High Sensitivityon 55-65-8536Fxrugakm I High Sensitivity<4Lqxhem3-65Ubs [facility]park Physician GroupComment on above:Result Comment: The Troponin units of report have been changed to meet the Chest Pain Accreditation requirement, element EC5.M1l2. Troponin units are changed from pg/ml to ng/L. Also, the decimal is removed and results are in whole numbers. PERFORMED BY: [place] [address] PATHOLOGIST LODGING FACILITIES MANAGER TEO OROZCO M.D.Performed By: #### CK, PT, HS TROP, BNP, CBC #### [facility] [address] [place] [address] USATroponin I.cardiac [Mass/volume] in Serum or Plasma by Detection limit <= 0.01 ng/mLOrdered By: Nelson Carcamo on 73-81-4473Ovkqtqvx I.cardiac DL <= 0.01 ng/mL [Mass/Vol]< 3 ng/L0-15Cl[facility] HospitalComment on above:The Troponin units of report have been changed to meet the Chest Pain Accreditation requirement, element EC5.M1l2. Troponin units are changed from pg/ml to ng/L. Also, the decimal is removed and results are in whole numbers.Urea nitrogen [Mass/volume] in Serum or PlasmaOrdered By: Nelson Carcamo on 58-43-5863Ahue nitrogen [Mass/Vol]11 mg/dLNormal10-07 [facility] HospitalComment on above:Performed By: #### HEPATIC, MG, BMP, TSH3 ####[facility] [address] [place] [address] USAX-ray reportOrdered By: Familia Cantu on 26-38-8652Pzdpw report [facility] [address] [place] [address] [place] [address] XRay Report Signed Patient: Doris Johns MR#: Ismael [id number] : 2000 Acct:[id number] Age/Sex: 23 / F ADM Date: 5 Loc: ER Room: Type: [facility] ER Attending Dr: Copies to: Nelson Carcamo DO~ Ordering Provider: Nelson Carcamo DO Date of Service: 10/19/24 XR/XR chest 2V*: Arrhythmia/Palpitations Chest 2 views CLINICAL HISTORY: Elevated heart rate. COMPARISON: Chest 06/25/2024 FINDINGS: Heart normal in size. Lungs are clear. No free air. Hardware fixation involving the thoracic spine. XR/XR chest 2V* IMPRESSION: NO ACUTE CARDIOPULMONARY ABNORMALITY. Impression dictated by: Familia Cantu Jr., D.O. 10/19/2024 11:13 AM Dictation Location: RADIO-PC-23 Transcribed By: ISHAAN 10/19/24 1113 Dictated By: Familia Cantu Jr, DO 10/19/24 1112 Signed By: 10/19/24 1113 [facility] HospitalXR chest 2V*on 82-66-0730LZ chest 2V*[facility] [place] [address] [place], [place] [address] XRay Report Signed Patient: Doris Johns MR#: [id number] : 2000 Acct:[id number] Age/Sex: 23 / F ADM Date: 10/19/24 Loc: ER Room: Type: [facility] ER Attending Dr: Copies to: Nelson Carcamo DO Ordering Provider: Nelson Carcamo DO Date of Service: 10/19/24 XR/XR chest 2V*: Arrhythmia/Palpitations Chest 2 views CLINICAL HISTORY: Elevated heart rate. COMPARISON: Chest 06/25/2024 FINDINGS: Heart normal in size. Lungs are clear. No free air. Hardware fixation involving the thoracic spine. XR/XR chest 2V* IMPRESSION: NO ACUTE CARDIOPULMONARY ABNORMALITY. Impression dictated by: Familia Cantu Jr., D.O. 10/19/2024 11:13 AM Dictation Location: RADIO-PC-23 Transcribed By: ISHAAN 10/19/24 1113 Dictated By: Familia Cantu Jr, DO 10/19/24 1112 Signed By: 10/19/[address] [place] [address] Physician GroupOffice Visiton 46-66-8676Ngmdru- up [id number] Doris Johns 2000 F Date Provider Department Center 09/30/2024 [id number] HUERTA [facility] Family History Problem Relation Age of Onset Hyperlipidemia Mother Hyperlipidemia Father Atrial fibrillation Maternal Grandmother Heart failure Maternal Grandmother Coronary artery disease Maternal Grandmother Family Status - Relation Status Age at Mother Father Maternal Grandmother Level of Service:[address] [place] OFFICE/OUTPATIENT ESTABLISHED LOW MDM 20 [facility] LUMBAR SPINE (2-3 VIEWS)on 25-25-4890IK LUMBAR SPINE (2-3 VIEWS)EXAMINATION: 2 XRAY VIEWS OF THE LUMBAR SPINE 09/20/2024 1:47 pm COMPARISON: 07/26/2024 HISTORY: ORDERING SYSTEM PROVIDED HISTORY: Closed compression fracture of L2 lumbar vertebra with routine healing, subsequent encounter TECHNOLOGIST PROVIDED HISTORY: F/u L2 compression fracture Reason for Exam: F/u L2 compression fracture, Closed compression fracture of L2 lumbar vertebra with routine healing FINDINGS: Thoracolumbar spinal fusion hardware is partly imaged, and the right jocelin appears discontinuous with the L1 right transpedicular screw.There is lumbar levoscoliosis. The remaining nonoperative vertebral bodies show no evidence of fracture. The L2 fracture is better appreciated on the prior CT of 06/16/2024.The intervertebral disc spaces appear normal.The soft tissues demonstrate expected postoperative changes. IMPRESSION: 1. Postoperative changes are evident. Of note, the right spinal jocelin appears discontinuous with the L1 transpedicular screw. 2. The L2 fracture is better imaged on the prior CT. There is abnormal curvature. Interpreted by: Pablo Morton MD Signed by: Pablo Morton MD 09/28/[address] [facility] ClearlakeXR LUMBAR SPINE (2-3 VIEWS)on 39-34-0349DC LUMBAR SPINE (2-3 VIEWS)EXAMINATION: 2 XRAY VIEWS OF THE LUMBAR SPINE 07/26/2024 9:25 am COMPARISON: 06/16/2024 HISTORY: ORDERING SYSTEM PROVIDED HISTORY: Closed compression fracture of L2 lumbar vertebra with routine healing, subsequent encounter TECHNOLOGIST PROVIDED HISTORY: F/u L2 compression fracture FINDINGS: Posterior fusion hardware extending from the thoracic spine to L1. The superior endplate fracture of L2 is not well demonstrated. No subluxation. No other fractures. IMPRESSION: Superior endplate fracture of L2 not well demonstrated No acute fractures identified Interpreted by: South Elizalde MD Signed by: South Elizalde MD 07/30/24 Final resultNormalMerCollege Medical CenterB-Type Natriuretic Peptideon 42-95-3316Avbfzacmlia peptide B (Bld) [Mass/Vol]56.0 pg/mLNormal5-100The [facility]park Physician GroupComment on above:Result Comment: PERFORMED BY: [address] [place] [address] PATHOLOGIST LODGING FACILITIES MANAGER EN CARR M.D.Performed By: #### PTT, CBC, BNP, PT, HS TROP, CK, BMP, DDIMER ####[address] [address] USABasic Metabolic Panelon 19-86-1964Gvtbp gap [Moles/Vol]9.0 mmol/LNormal 6.0-15.0The [facility] Physician GroupComment on above:Performed By: #### PTT, CBC, BNP, PT, HS TROP, CK, BMP, DDIMER ####[place] [address] USACalcium [Mass/Vol]8.6 mg/dLNormal8.6-10.3The [facility] Physician GroupComment on above:Performed By: #### PTT, CBC, BNP, PT, HS TROP, CK, BMP, DDIMER ####[address] [address] USAChloride [Moles/Vol]108 mmol/GJzjy45-873Syi [facility] Physician GroupComment on above:Performed By: #### PTT, CBC, BNP, PT, HS TROP, CK, BMP, DDIMER ####[place] [address] USACO2 [Moles/Vol]23.6 mmol/QBriryf42.0-31.0The [facility] Physician GroupComment on above:Performed By: #### PTT, CBC, BNP, PT, HS TROP, CK, BMP, DDIMER ####[place] [address] USACreatinine [Mass/Vol]0.88 mg/dLNormal0.60-1.20The [facility] Physician GroupComment on above:Performed By: #### PTT, CBC, BNP, PT, HS TROP, CK, BMP, DDIMER ####[place] [address] USACreatinine Clr Calc Cbufslde498.72NormalThe [facility] Southpark Physician GroupComment on above:Result Comment: PERFORMED BY: [facility] [address] SYSTEMAndreas [place] [id number] PATHOLOGIST LODGING FACILITIES MANAGER EN CARR M.D.Performed By: #### PTT, CBC, BNP, PT, HS TROP, CK, BMP, DDIMER ####[place] [address] USAGFR/1.73 sq M.predicted MDRD (S/P/Bld) [Vol rate/Area]mL/min/{1.73_m2} NormalThe [facility] Southpark Physician GroupComment on above:Performed By: #### PTT, CBC, BNP, PT, HS TROP, CK, BMP, DDIMER ####[place] [address] USAGlucose [Mass/Vol]92 mg/zAHrhxqb37-131Myz [facility] Physician GroupComment on above:Result Comment: Random Glucose Reference Range is dependent on time and content of last meal. Glucose of more than 200 mg/dL in a nonstressed, ambulatory subject supports the diagnosis of Diabetes Mellitus. ADA recommended reference rangePerformed By: #### PTT, CBC, BNP, PT, HS TROP, CK, BMP, DDIMER ####[place] [id number] USAPotassium [Moles/Vol]3.6 mmol/LNormal3.5-5.1The [facility] Physician GroupComment on above:Performed By: #### PTT, CBC, BNP, PT, HS TROP, CK, BMP, DDIMER ####[place] [id number] [place] Sodium [Moles/Vol]137 mmol/RQsbsqb432-244Uat [facility] Physician GroupComment on above:Performed By: #### PTT, CBC, BNP, PT, HS TROP, CK, BMP, DDIMER ####[place] [id number] USAUrea nitrogen [Mass/Vol]10 mg/dLNormal7-25The [facility] Physician GroupComment on above:Performed By: #### PTT, CBC, BNP, PT, HS TROP, CK, BMP, DDIMER ####[place] [id number] [place] Basophils Auto (Bld) [#/Vol]Ordered By: Karen Benson on 02-20-7962Ywlpehxst (Bld) [#/Vol]Automated basophil count0.0-0.2FCleveland Clinic [facility]cy Hospital Basophils/100 WBC Auto (Bld)Ordered By: Karen Benson on 06-25-2024 Basophils/100 WBC (Bld)Automated basophil %.[facility] Calcium [Mass/volume] in Serum or PlasmaOrdered By: Karen Benson on 91-78-7002Qqyxjkb [Mass/Vol]Calcium [Mass/volume] in Serum or Plasma8.6-10.3 [facility] HospitalCarbon dioxide, total [Moles/volume] in Serum or PlasmaOrdered By: Karen Benson on 15-72-5793QS7 [Moles/Vol]Carbon dioxide, total [Moles/volume] in Serum or Llurpv45.0-31.0[facility] HospitalChloride [Moles/volume] in Serum or PlasmaOrdered By: Karen Benson on 95-07-5587Wufrclhq [Moles/Vol]Chloride [Moles/volume] in Serum or PlasmaHigh 98-107[facility] HospitalComplete Blood Count Auto Diffon 05-42-7302Adptaanoj (Bld) [#/Vol]0.0 10*3/uLNormal0.0-0.2The [facility] Physician GroupComment on above:Result Comment: PERFORMED BY: [facility] [address] [place] [address] PATHOLOGIST LODGING FACILITIES MANAGER EN CARR M.D.Performed By: #### PTT, CBC, BNP, PT, HS TROP, CK,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 HospitalComment on above:TESTS RESULT FLAG UNITS REF RANGE LAB DIAGNOSIS: [A] 02 EPITHELIAL CELL ABNORMALITY. ATYPICAL SQUAMOUS CELLS OF UNDETERMINED SIGNIFICANCE (ASC-US).Recommendation: [A] 02 Suggest follow up as clinically appropriate.Specimen adequacy: 02 Satisfactory for evaluation. Endocervical and/or squamous metaplastic cells (endocervical component) arepresent.Performed by: 02 Alondra Camp, CytotechnologistElectronically si... 02 Hien Menendez MD, Pathologist. 02Pathologist ICD10: 02 R87.610Note: Note 02 The Pap smear is a screening test designed to aid in the detection of premalignant and malignant conditions of the uterine cervix. It is nota diagnostic procedure and should not be used as the sole means of detecting cervical cancer. Both false-positive and false-negative reports do occur.Test Methodology: Note 02 This liquid based ThinPrep(R) pap test was screened with the use of an image guided system.. 02 See below for HPV testing re sults. FLAG LEGEND: L-Low Normal,H-HighNormal,LL-Alert Low,HH-Alert High <-Panic Low,>-Panic High,A-Abnormal,AA-Critical Abnormal---- Performed at:02 WB [facility] [place] [address] [facility] [address] Nisha Ybarra MD, hpv Genotype SourceNegativeNegativeClinton Memorial HospitalNo Panel Informationon 28-20-5277Stujnnrvm Lab Test Patient Age Note.[facility] Memorial HospitalComment on above:TESTS RESULT FLAG UNITS REF RANGE LAB Cl inician Provided Cytology Information Source.............Cervix;Endocervix No. of containers..01 ThinPrep VialAge Tommy ALEJANDRE Mae... FLAG LEGEND: L-Low Normal,H-High Normal,LL-Alert Low,HH-Alert High <-Panic Low,>-Panic High,A- Abnormal,AA-Critical Abnormal Performed a t:01 =G [facility] [place] [address], [place] [address] Nisha Ybarra MD, Lctoi Cultureon 03-52-7953Arjkzije identified Cx Nom (U)ORGANISM: Escherichia coli (O:ESCCOL) [place] Count >100,000 Aerobic JOHN Charge (NMIC56) SUSCEPTIBILITY ORGANISM: O:ESCCOL ANTIBIOTIC INTERPRETATION JOHN Amikacin S <16 Amoxacillin/K Clavulanate S <8 Ampicillin R >16 Ampicillin/Sulbactam R >16 Aztreonam S <4 Cefazolin R >16 Cefepime S <2 Ceftazidime S <1 Ceftazidime/Avibactam S <4 Ceftolozane/Tazobactam S <2 Ceftriaxone S <1 Cefuroxime S <4 Ciprofloxacin S <0.25 Ertapenem S <0.5 Gentamicin S <2 Levofloxacin S <0.5 Meropenem S <1 Meropenem/Vaborbactam S <2 Nitrofurantoin S <32 Piperacillin/Tazobactam S <8 Tetracycline S <4 Tigecycline S <2 Tobramycin S <2 Trimethoprim/Sulfamethoxazole S <0.5 S = SUSCEPTIBLE I = [...] RESISTANT TO ALL B-LACTAM DRUGS. PERFORMED BY: [place] [address] PATHOLOGIST LODGING FACILITIES MANAGER KATHARINE GILBERT M.D.[facility] Emergency Physician GroupComment on above:Performed By: #### CUU #### [place] [address] USACBC AND AUTO DIFFon 46-45-8416UXTQUDKD BASOPHIL0.1 X10E9/L Normal0.0-0.2Pro[facility]ica [facility] Regional HospitalComment on above:Performed By: #### ERICA, 54883-1 #### [facility] ([id number]) [address] [place], [place] [address]ADDQMTIL RNJLORGKJE85.4 X10E9/LHigh1.5-6.6ProWright-Patterson Medical Centerca [facility] Regional HospitalComment on above:Performed By: #### ERICA, 95208-2 #### [facility] ([id number]) [address] [place], [place] [address]Ywqjpkjgr/100 WBC (Bld)0.4 %NormalProWright-Patterson Medical Centerca [facility] Regional HospitalComment on above:Performed By: #### ERICA, 36326-2 #### [facility] ([id number]) [address] [place], [place] [address]Rnfdzizoshe (Bld) [#/Vol]0.0 10*3/uLNormal0.0-0.4ProWright-Patterson Medical Centerca [facility] HospitalComment on above:Performed By: #### ERICA, 95692-9 #### [facility] ([id number]) [address] [place], [place] [address]Xameqcdnrcm/100 WBC (Bld)0.2 %NormalProWright-Patterson Medical Centerca [facility] Regional HospitalComment on above:Performed By: #### ERICA, 07759-0 #### [facility] ([id number]) [address] [place], [place] [address]Hdbyslyuzpv distribution width (RBC) [Ratio]13.5 %Normal 11.5-15.0ProWright-Patterson Medical Centerca [facility] HospitalComment on above:Performed By: #### ERICA, 24022-0 #### [facility] ([id number]) [address] [place], [place] [address]Jdtxlqqqae (Bld) [Volume fraction]38.4 %Actrpf23-25KqhDnznlm [facility] HospitalComment on above:Performed By: #### ERICA, 42336-6 #### [facility] ([id number]) [address] [facility] [place], [place] [address]Phrmyedcev (Bld) [Mass/Vol]13.0 g/jIFomvwq83.7-15.5ProMedcentral alabama va [facility] JolietOhioHealth Pickerington Methodist Hospital HospitalComment on above:Performed By: #### ERICA, 60708-0 #### [facility] ([id number]) [address] [facility] [place] [address]Erdqqnivauc (Bld) [#/Vol]1.5 10*3/uLNormal1.0-3.5PHenry County Hospital HospitalComment on above:Performed By: #### ERICA, 86668-1 #### [facility] ([id number]) [address] [facility] [place], [place] [address]Tqzvwqeejko/100 WBC (Bld)7.2 %NormalProWright-Patterson Medical Centerca [facility] HospitalComment on above:Performed By: #### ERICA, 43326-1 #### [facility] ([id number]) [address] [facility] [address]JKX (RBC) [Entitic mass]29.9 nqEvdoxt41-21YjeYhxyna [facility] HospitalComment on above:Performed By: #### ERICA, 44543-6 #### [facility] ([id number]) [address] [facility] [address]FJDQ (RBC) [Mass/Vol]33.9 g/nFIhirmj73-53PwoKnzkue [facility] HospitalComment on above:Performed By: #### CBCLionel, 43241-0 #### [facility] ([id number]) [address] [facility] [place], [place] [address]FIR (RBC) [Entitic vol]88 kKBfwaoc79-442RafXyxegr [facility] HospitalComment on above:Performed By: #### CBCLionle, 55112-0 #### [facility] ([id number]) [address] [place], [place] [address]Hxswmmgxe (Bld) [#/Vol]1.6 10*3/uLHigh0-0.9Pro[facility] HospitalComment on above:Performed By: #### ERICA, 55348-9 #### [facility] ([id number]) [address] [place], [place] [address]Znijbhznh/100 WBC (Bld)7.7 %NormalProMedica Joliet Regional HospitalComment on above:Performed By: #### ERICA, 53915-1 #### [facility] ([id number]) [address] [place], [place] [address]Htfwjvmcvsx/100 WBC (Bld)84.5 %NormalProMedica Joliet Regional HospitalComment on above:Performed By: #### ERICA, 53743-7 #### [facility] ([id number]) [address] [place], [place] [address]Fxhdlcvn mean volume (Bld) [Entitic vol]7.8 fLNormal7-12 [facility] HospitalComment on above:Performed By: #### ERICA, 95892-6 #### [facility] ([id number]) [address] [place], [place] [address]Batrtietv (Bld) [#/Vol]358 10*3/wCRjafgf628-767HwaZlsswk [facility] HospitalComment on above:Performed By: #### ERICA, 73213-1 #### [facility] ([id number]) [address] [place], [place] [address]HVS COUNT4.35 X10E12/LNormal3.80-5.20[facility] HospitalComment on above:Performed By: #### ERICA, 01254-9 #### [facility] ([id number]) [address] [place], [place] [address]BNW (Bld) [#/Vol]20.5 10*3/uLHigh4.0-11.0[facility] HospitalComment on above:Performed By: #### ERICA, 76620-0 #### [facility] ([id number]) [address] [place], [place] [address]TQAUMYHAVZGFV METABOLIC PANELon 74-68-4971Pkkjchn [Mass/Vol] 3.3 g/dLNormal3.2-5.3[facility] HospitalComment on above: Performed By: #### CMP, 3040-3 #### [facility] ([id number]) [address] [place], [place] [address]HSE [Catalytic activity/Vol]99 U/GIljbol65-868YpeGcdzjx [facility] HospitalComment on above:Performed By: #### CMP, 3040-3 #### [facility] ([id number]) [address] [place], [place] [address]VPG [Catalytic activity/Vol]15 U/LNormal0-31Pro[facility] HospitalComment on above:Performed By: #### CMP, 3040-3 #### [facility] ([id number]) [address] [place], [place] [address]Ebevy gap [Moles/Vol]10 mmol/LNormal5-15ProWright-Patterson Medical Centerca [facility] HospitalComment on above:Performed By: #### CMP, 3040-3 #### [facility] ([id number]) [address] [place], [place] [address]UNO [Catalytic activity/Vol]15 U/LNormal0-41[facility] HospitalComment on above:Performed By: #### CMP, 3040-3 #### [facility] ([id number]) [address] [place], [place] [address]Sbvgxgrcr [Mass/Vol]0.5 mg/dLNormal0.3-1.2[facility] HospitalComment on above:Performed By: #### CMP, 3040-3 #### [facility] ([id number]) [address] [place], [place] [address]Cqzsojy [Mass/Vol]8.7 mg/dLNormal8.5-10.5[facility] HospitalComment on above:Performed By: #### CMP, 3040-3 #### [facility] ([id number]) [address] [place], [place] [address]Tblabqpe [Moles/Vol]101 mmol/SQwfkgg47-114XrhHotfwyNorwalk Memorial Hospital HospitalComment on above:Performed By: #### TY, 3040-3 #### [facility] ([id number]) [address] [place], [place] [address]WF4 [Moles/Vol]21 mmol/GAek56-54BneObmwglSelect Medical Specialty Hospital - Canton HospitalComment on above:Performed By: #### TY, 0-3 #### [facility] ([id number]) [address] [place], [place] [address]Wlnhargonc [Mass/Vol]0.59 mg/dLNormal0.40-1.00ProMercy Health – The Jewish HospitalComment on above:Result Comment: METHOD TRACEABLE TO IDMS STANDARDPerformed By: #### TY, 3039-3 #### [facility] ([id number]) [address] [place], [place] [address]pTYK (CKD-EPI) NON-RACE DEPENDENT>90Normal>59ProMercy Health – The Jewish HospitalComment on above:Result Comment: Reported eGFR is based on the CKD-EPI 2020 equation that does not use a race coefficient.Performed By: #### TY, 3040-3 #### [facility] ([id number]) [address] [place], [place] [address]Nemkdgt [Mass/Vol]117 mg/tLTntd99-01NzpWopasuMercy Health – The Jewish HospitalComment on above:Performed By: #### TY, 3040-3 #### [facility] ([id number]) [address] [place], [place] [address]Vimsktbnm [Moles/Vol]3.7 mmol/LNormal3.5-5.0ProMercy Health – The Jewish HospitalComment on above:Performed By: #### TY, 3040-3 #### [facility] ([id number]) [address] [place], [place] [address]Igcpxvd [Mass/Vol]7.6 g/dLNormal6.0-8.0The Christ HospitalComment on above:Performed By: #### TY, 3040-3 #### [facility] ([id number]) [address] [facility], [place] [address]Ojwcsc [Moles/Vol]132 mmol/JRgb889-938EbbEfxbnzMercy Health – The Jewish HospitalComment on above:Performed By: #### TY, 3040-3 #### [facility] ([id number]) [address] [facility], [place] [address]Wxbj nitrogen [Mass/Vol]13 mg/dLNormal5-23ProMercy Health – The Jewish HospitalComment on above:Performed By: #### TY, 3040-3 #### [facility] ([id number]) [address] [facility], [place] [address]XRA ( test) IA.rapid Ql (S)on 85-05-7588ZIWMF PREGNANCYNegativeNormalNEGThe Christ HospitalComment on above: Performed By: #### CBCA, 81290-4 #### [facility] ([id number]) [address] [facility], [place] [address]NGFIMGpu 08-48-7949Olegtw [Catalytic activity/Vol]32 U/LNormal 17-40ProMercy Health – The Jewish HospitalComment on above:Performed By: #### TY, 3040-3 #### [facility] ([id number]) [address] [facility], [place] [address]XOOIR CULTUREon 74-67-8470Tgxyslif identified Cx Nom (U) CULTURE RESULTS >100,000 [...] S <=4 F TOBRAMYCIN S <=1 F TRIMETH/SULFAMETHOXAZOLE S <=04/03 FSusceptibleProMedica Joliet Regional HospitalComment on above:Performed By: #### 630-4 #### [facility] ([id number]) [address] [facility], [address] [place], [place] [address]UDA MACROSCOPIC NURon 02-80-4889JECYWYUQA NURNegativeNormalNEG [facility] HospitalComment on above:Performed By: #### NUM #### [facility] ([id number]) [address] [place], [place] [address]WLTCG/HGB NURLargeAbnormalNEGProMedica [facility]ol[facility] Regional [place] HospitalComment on above:Performed By: #### NUM #### [facility] ([id number]) [address] [place], [place] [address]UWZZILD NURNegativeNormalNEGProMedica Joliet Regional HospitalComment on above:Performed By: #### NUM #### [facility] ([id number]) [address] [place], [place] [address]EYTSPYW NURNegativeNormalNEGProMedica [facility]oliet Regional [place] HospitalComment on above:Performed By: #### NUM #### [facility] ([id number]) [address] [place], [place] [address]WQGYHDJGB ESTERASE NURSmallAbnormalNEGProMedica Joliet Regional HospitalComment on above:Performed By: #### NUM #### [facility] ([id number]) [address] [place], [place] [address]HBRDRPB NURNegativeNormalNEGProMedica Joliet Regional HospitalComment on above:Performed By: #### NUM #### [facility] ([id number]) [address] [place], [place] [address]DC NUR8.9Xwkwtp5.0-8.5[facility] Comment on above:Performed By: #### NUM #### [facility] ([id number]) [address] [facility], [place] [address]TEUQZUS DASHA>=300AbnormalNEGProWright-Patterson Medical Centerca Mercer County Community HospitalComment on above:Performed By: #### NUM #### [facility] ([id number]) [address] [facility], [place] [address]JRMFDTBQ GRAVITY NUR1.594Yloxyr8.003-1.035ProMedica [facility]cer County Community HospitalCommclaren lapeer region on above:Performed By: #### NUM #### [facility] ([id number]) [address] [facility], [place] [address]TZDPPKEOFSQF NUR0.2 eu/dLNormal<1.1ProMedica [facility] Community HospitalCommclaren lapeer region on above:Performed By: #### NUM #### [facility] ([id number]) [address] [facility], [place] [address]Jrtugjzfg epithelial cells count in urine sediment (number/area)on 51-01-5373Mfxzlzppbi cells Auto (Urine sed) [#/Area]FEW #/LPF NONE/RAREClinton Memorial HospitalAutomated urine specific gravity by refractometryon 16-48-1886Jrabucox gravity Refractometry automated (U) [Rel density]>=1.0301.005-1.025Cl[facility] Memorial HospitalBacteria [Presence] in Urine by Automatedon 94-74-8854Gnertidd Auto Ql (U)MODERATE #/HPFNONE SEEN [facility] HospitalBasophils Auto (Bld) [#/Vol]on 06-11-2023 Basophils (Bld) [#/Vol]0.0 10 3/uL0.0-0.1FCleveland Clinic Mercy Hospital Basophils/100 WBC Auto (Bld)on 68-68-0840Yadaqppmg/100 WBC (Bld)0.3 %0.2-2.0 [facility] HospitalBilirubin Auto test strip (U) [Mass/Vol]on 80-22-0769Awdfiebrn (U) [Mass/Vol]NegativeNEGATIVEClinton Memorial HospitalCasts typing in urine sediment by light microscopyon 91-25-0124Zoqgn LM Nom (Urine sed)NONE SEEN #/LPFNONE SEENClinton Memorial HospitalColor Auto (U)on 44-61-3462Xlmey (U)BROWNYELLOWClinton Memorial Hospital Eosinophils/100 WBC Auto (Bld)on 39-64-6101Rdikdrqraaj/100 WBC (Bld)0.1 %0.9-7.0 [facility] HospitalErythrocyte distribution width Auto (RBC) [Ratio]on 54-41-1450Cysbidvuezq distribution width (RBC) [Ratio]13.0 %11.0-15.0 [facility] HospitalEstimated glomerular filtration rate (GFR) non- Americanon 32-53-2030XNG/1.73 sq M.predicted among non-blacks MDRD (S/P/Bld) [Vol rate/Area]mL/min/{1.73_m2}>=60[facility] Globulin Calc (S) [Mass/Vol]on 15-96-3926Qyvsleku (S) [Mass/Vol]4.5 g/dL [facility] HospitalGlucose [Mass/volume] in Urine by Test stripon 31-66-3751Jvmtklm Test strip (U) [Mass/Vol]NegativeNEGATIVEClinton Memorial HospitalHCG ( test) IA.rapid Ql (U)on 89-92-8021YEQ ( test) Ql (U)NegativeNEGTrumbull Memorial HospitalHematocrit Auto (Bld) [Volume fraction]on 14-34-1867Xbeysedocr (Bld) [Volume fraction]42.6 % 36.0-48.0Cl[facility] HospitalHemoglobin [Mass/volume] in Bloodon 89-42-6207Mffwmedmxk (Bld) [Mass/Vol]13.7 g/dL12.0-16.0[facility] HospitalKetones Auto test strip (U) [Mass/Vol]on 22-65-8036Gltcqvb (U) [Mass/Vol]NegativeNEGATIVEClinton Memorial HospitalLaboratory - Chemistry and Chemistry - challengeon 82-07-4436Psmuvdw [Mass/Vol]3.1 g/dL 3.4-5.0Cl[facility] HospitalALP [Catalytic activity/Vol]103 U/L 46-116Cl[facility] HospitalALT [Catalytic activity/Vol]18 U/L14-59 [facility] HospitalAST [Catalytic activity/Vol]12 U/L15-37 [facility] HospitalBilirubin [Mass/Vol]0.5 mg/dL0.2-1.0Cl[facility] HospitalCalcium [Mass/Vol]9.7 mg/dL8.5-10.1FCleveland Clinic Mercy HospitalChloride [Moles/Vol]103 mmol/Z06-912IcomujjkzClinton Memorial HospitalCO2 [Moles/Vol]26.1 mmol/L21.0-32.0[facility] Creatinine [Mass/Vol]1.00 mg/dL0.55-1.02[facility] GFR/1.73 sq M.predicted MDRD (S/P/Bld) [Vol rate/Area]mL/min/{1.73_m2}>=60 [facility] HospitalGlucose [Mass/Vol]102 mg/hF32-427NjzqhfatyClinton Memorial HospitalPotassium [Moles/Vol]3.8 mmol/L3.5-5.1FCleveland Clinic Mercy HospitalProtein [Mass/Vol]7.6 g/dL6.4-8.2FC[facility] Sodium [Moles/Vol]142 mmol/E613-885GzrsgcknzClinton Memorial HospitalUrea nitrogen [Mass/Vol]10.0 mg/dL7.0-18.0[facility] HospitalUrea nitrogen/Creatinine [Mass ratio]10.0 mg/mgClinton Memorial Hospital Laboratory - Hematology and Cell countson [id number] granulocytes/100 WBC (Bld)0.5 %0.0-0.5FCleveland Clinic Mercy HospitalLaboratory - Microbiology and Antimicrobial susceptibilityOrdered By: George Means on [id number] identified Cx Nom (U)[facility] HospitalLaboratory - Microbiology and Antimicrobial susceptibilityon [id number]-CoV-2 (COVID-19) RNA TRE+probe Ql (Unsp spec)NegativeNEGATIVEClinton Memorial HospitalComment on above: This test has not been FDA cleared or approved, but has beenauthorized by the FDA under an Emergency Use Authorization(EUA) for use by authorized laboratories certified underCLIA that meet the requirements to perform moderate [...] the declaration isterminated or authorization is revoked sooner.Leukocytes [#/area] in Urine sediment by Automated counton 73-62-3207NVT Auto (Urine sed) [#/Area]20-50 #/HPF 0-2FCleveland Clinic Mercy HospitalLeukocytes [#/area] in Urine sediment by Microscopy high power fieldon 78-12-3031QOI LM.HPF (Urine sed) [#/Area]50-75 #/HPFNONE [facility] HospitalLeukocytes [#/volume] corrected for nucleated erythrocytes in Blood by Automated counon 05-83-5769UQW corrected for nucl RBC Auto (Bld) [#/Vol]15.4 10 3/uL4.0-11.0[facility] HospitalLymphocytes Auto (Bld) [#/Vol]on 38-88-8160Ojpheseihwo (Bld) [#/Vol]1.7 10 3/uL1.2-3.8[facility] HospitalLymphocytes/100 WBC Auto (Bld)on 98-57-4300Cmuoehmjqwy/100 WBC (Bld)11.1 %20.5-60.0[facility], IncH Auto (RBC) [Entitic mass]on 52-10-3257EGN (RBC) [Entitic mass]29.9 pg 26.7-34.0[facility], IncHC Auto (RBC) [Mass/Vol]on 53-13-7942ZZVB (RBC) [Mass/Vol]32.2 g/dL29.9-35.2FMarietta Memorial HospitalV Auto (RBC) [Entitic vol]on 38-33-6188LDM (RBC) [Entitic vol]93.0 fL 81.0-99.0[facility] HospitalMonocytes Auto (Bld) [#/Vol]on 65-67-5758Ueedseigm (Bld) [#/Vol]0.7 10 3/uL0.3-0.8[facility] HospitalMonocytes/100 WBC Auto (Bld)on 16-01-4915Pwqctjlla/100 WBC (Bld)4.5 % 1.7-12.0[facility] HospitalMucus LM Ql (Urine sed)on 06-11-2023 Mucus Ql (Urine sed)TRACENONE SEENClinton Memorial HospitalNeutrophils Auto (Bld) [#/Vol]on 32-88-8257Mzflrtqwxdn (Bld) [#/Vol]12.9 10 3/uL1.4-6.5 [facility] HospitalNeutrophils/100 WBC Auto (Bld)on 06-11-2023 Neutrophils/100 WBC (Bld)83.5 %43.0-75.0[facility] HospitalNo Panel Informationon 81-02-6743Xzpwe Culture ReflexedOhioHealth Shelby HospitalUrine Microscopic ReviewOhioHealth Shelby Hospital Bedside Influenza Type A AntigenNegativeClinton Memorial HospitalComment on above:Negative for Flu A protein antigen. Infection due to Flu Acannot be ruled out. Flu A antigen in thesample may bebelow the detection limit of the test.Bedside Influenza Type B AntigenNegativeClinton Memorial Hospital Comment on above:Negative for Flu B protein antigen. Infection due to Flu Bcannot be ruled out. Flu B antigen in thesample may bebelow the detection limit of the test.Eosinophils # (Auto)0.0 10 3/uL0.0-0.7FCleveland Clinic Mercy HospitalImmature Granulocyte # (Auto)0.07 10 3/uL0.00-0.03[facility] HospitalPlatelet mean volume Auto (Bld) [Entitic vol]on 78-86-1700Yectozjo mean volume (Bld) [Entitic vol]10.1 fL9.5-13.5FCleveland Clinic Mercy Hospital Platelets Auto (Bld) [#/Vol]on 63-96-3915Ihhhlmrjf (Bld) [#/Vol]298 10 3/uL 150-450[facility] HospitalProtein Auto test strip (U) [Mass/Vol]on 45-86-1583Elxzfji (U) [Mass/Vol]100 mg/dLNEG/TRACEClinton Memorial HospitalRBC Auto (Bld) [#/Vol]on 47-40-8204YAR (Bld) [#/Vol]4.58 10 6/uL4.20-5.40 [facility] Toledoerum or plasma albumin/globulin mass ratioon 87-37-2553Svszrai/Globulin [Mass ratio]0.7 {ratio}[facility] Hospital Toledoerum or plasma anion gap determinationon 01-06-2092Bxucs gap [Moles/Vol] 16.7 mmol/LFJoint Township District Memorial Hospitalpecific gravity Auto test strip (U) [Rel density]on 88-88-0105Oaogyday gravity (U) [Rel density]CLEARCLECleveland Clinic Children's Hospital for RehabilitationUrine hemoglobin detection by automated test stripon 89-38-2922Lataxnilit Auto test strip Ql (U)LARGENEGTrumbull Memorial HospitalUrine nitrite detection by automated test stripon 06-11-2023 Nitrite Auto test strip Ql (U)MODERATENEGTrumbull Memorial Hospital Nitrite Auto test strip Ql (U)PositiveNEGTrumbull Memorial Hospital Urine sediment crystal identification by light microscopyon 44-17-4752Ybaaptgf LM Nom (Urine sed)None Seen #/HPFNone SeenClinton Memorial Hospital Urobilinogen Auto test strip (U) [Mass/Vol]on 89-65-3693Yhbirlzlndkw Qn (U)0.2 {Christo'U}/dL0.2-1.0[facility] HospitalpH Auto test strip (U)on 36-38-6567aQ (U)6.0 [pH]5.0-9.0[facility] HospitalPAP ACOG PANEL 2: 21 to 29on 02-24-2022..NormalThe [facility]ull Regional Medical CenterComment on above:Performed By: #### [id number] #### [facility] [address] [place] [address] Dr. Gasper WelchAge Gdln ACOG Gdxxyhr62-13EwstyhRvuCleveland Clinic Euclid HospitalComment on above:Performed By: #### [id number] #### [facility] [address] [place] [address] Dr. Gasper WelchDIAGNOSIS:CommentSt. John of God Hospital on above: Result Comment: NEGATIVE FOR INTRAEPITHELIAL LESION OR MALIGNANCY.Performed By: #### [id number] #### [facility] [address] [place] [address] Dr. Gasper WelchMethodology:CommentSt. John of God Hospital on above: Result Comment: This liquid based ThinPrep(R) pap test was screened with the use of an image guided system.Performed By: #### [id number] #### [place] [address] Dr. Gasper WelchNote:CommentSt. John of God Hospital on above:Result Comment: The Pap smear is a screening test designed to aid in the detection of premalignant and malignant conditions of the uterine cervix. It is not a diagnostic procedure and should not be used as the sole means of detecting cervical cancer. Both false-positive and false-negative reports do occur. .Performed By: #### [id number] #### [place] [address] Dr. Gasper WelchPerformed by:CommentSt. John of God Hospital on above: Result Comment: Mirtha Matthews, Doors Prefitter (ASCP)Performed By: #### [id number] #### [facility] [address] [place] [address] Dr. Gasper WelchReflex Criteria:CommentSt. John of God Hospital on above:Result Comment: The HPV DNA reflex criteria were not met with this specimen result therefore, no HPV testing was performed. .Performed By: #### [id number] #### [place] [address] Dr. Gasper WelchSpecimen adequacy:CommentSt. John of God Hospital on above:Result Comment: Satisfactory for evaluation. Endocervical and/or squamous metaplastic cells (endocervical component) are present.Performed By: #### [id number] #### [facility] [address] [place] [address] Dr. Gasper WelchCHLAMYDIA/GONOCOCCUS TRE (SWAB/URINE/PAPon 10-98-9986Qftdfimaq trachomatis, NAANegativeNormalNegativeSheltering Arms HospitalComment on above: Performed By: #### CT/NGNA #### [facility] [address] [place] [address] [address] Gasper WelchNeisseria gonorrhoeae, NAANegativeNormalNegativeSheltering Arms HospitalComment on above:Performed By: #### CT/NGNA #### [facility] [address] [place] [address] Dr. Gasper Gan for Release of Medical Recordson 64-69-0547Oxnf for Release of Medical [id number]#1.00CD:127NormSelect Medical Cleveland Clinic Rehabilitation Hospital, Edwin ShawProvider Letteron 63-82-4470Gnzheoen Letter May 14, 2020 DORIS JOHNS [address] [place] [address] DORIS JOHNS 2000 Dear Doris Johns , We have been trying to reach you with no success. It is important that you return our call regarding Doris's upcoming appointment,upon receiving this letter. Also, at the time of your call, please provide us with your current information. Thank you for your prompt attention to this matter. Sincerely, Mable VOSS [facility] [address] [place], [place] [address]ExkkngLuxrkiKettering Health DaytonAmbulatory Clinical Summary on 27-29-4145Fwuamiqfba Clinical Summary {c8-sd-q1-n1-99-95-83-8x-v3-p8-i0-72-2a-31-09-76}CD:[id number] Health DaytonPediatrics Office/Clinic Noteon 86-85-4105Hoxorejtxv Office/Clinic NoteChief Complaint Pt in office with dad for [...] at night. She is a freshman at [employer]. Review of Systems ROS - Provider CONSTITUTIONAL: [...] Employment/School Student, Previous employment/school: 12th grade at [employer] 01/14/2019 Home/Environment Lives with Father, [...] Recorded influenza virus vaccine, inactivated 12/17/2006 Recorded diphtheria/pertussis, acel/tetanus adult 11/04/2005 Recorded measles/mumps/rubella virus vaccine 11/04/2005 Recorded poliovirus vaccine, inactivated 11/04/2005 Recorded varicella virus vaccine 11/04/2005 Recorded influenza virus vaccine, inactivated 11/29/2004 Recorded influenza virus vaccine, inactivated 11/25/2003 Recorded pneumococcal 13-valent vaccine 06/16/2002 Recorded diphtheria/pertussis, acel/tetanus ped 03/31/2002 Recorded measles/mumps/rubella virus vaccine 12/14/2001 Recorded haemophilus b conjugate (HbOC) vaccine 12/14/2001 Recorded varicella virus vaccine 12/14/2001 Recorded diphtheria/pertussis, acel/tetanus ped 09/20/2001 Recorded pneumococcal 13-valent vaccine 09/20/2001 Recorded hepatitis B adult vaccine 06/15/2001 Recorded poliovirus vaccine, inactivated 06/15/2001 Recorded haemophilus b conjugate (HbOC) vaccine 0 (more content not included)...Normal [facility] CenterMRI BRAIN WO CONTRASTon 66-83-6416YUM BRAIN WO CONTRASTEXAMINATION: MRI OF THE BRAIN WITHOUT CONTRAST 12/21/2019 [...] migrainosus; Family history of migraine. FINDINGS: INTRACRANIAL STRUCTURES/VENTRICLES: There is no acute infarct. No mass [...] Signed by: Darrin Patiño MD 12/21/19 Final resultNormPike Community Hospital acute intracranial abnormality. Mild diffuse paranasal sinus disease.[facility], KYEXAMINATION: MRI OF THE BRAIN WITHOUT CONTRAST 12/21/2019 [...] migrainosus; Family history of migraine. FINDINGS: INTRACRANIAL STRUCTURES/VENTRICLES: There is no acute infarct. No mass [...] signal intensity appears normal. The soft tissues demonstrateno acute abnormality.[facility] [facility] IDMarcos Mhpn Incoming Radiant Results From [employer] Information/twidox - 12/21/2019 2:11 PM EDT EXAMINATION: MRI [...] migrainosus; Family history of migraine. FINDINGS: INTRACRANIAL STRUCTURES/VENTRICLES: There is no acute infarct. No mass [...] intracranial abnormality. Mild diffuse paranasal sinus disease. ContactuallyChrista Anticoagulanton 33-70-9343Zdsqah Ham ViperNegative NormalNLUPMer Joliet HospitalComment on above:Performed By: #### CBC, SED, CP, TSH #### [facility] [address] [place] [address] Tool Grinder: Ozzy Young MD #### RA, B12FOL, TREP, ANASCX, LUPPRO #### [facility] [address] [place] [address] [phone] Tool Grinder: Ozzy Young MDLupus Anticoagulanton 30-71-0512Mfwvvapwjmfvxchd IgA0.4 APUNormal<12Mercy Joliet HospitalComment on above:Result Comment: Reference Range: 12 - 15 Equivocal >15 PositivePerformed By: #### CBC, SED, CP, TSH #### [facility] [address] [place] [address] Tool Grinder: Ozzy Young MD #### RA, B12FOL, TREP, ANASCX, LUPPRO #### [facility] ColumbusDim[facility] [address] [place] [address] [phone] Tool Grinder: Ozzy Young MDAntiphospholipid IgG6.0 GPUNormal<20Mercy Joliet HospitalComment on above:Result Comment: Reference Range: 20.0 - 29.9 Low Positive 30.0 - 79.9 Moderate Positive >79.9 High PositivePerformed By: #### CBC, SED, CP, TSH #### [facility] [address] [place] [address] Tool Grinder: Ozzy Young MD #### RA, B12FOL, TREP, ANASCX, LUPPRO #### [facility] ColumbusDim[facility] [address] [place] [address] Tool Grinder: Ozzy Young MDAntiphospholipid IgM4.9 MPUNormal<20Mer[facility]oliet HospitalComment on above:Result Comment: Reference Range: 20.0 - 29.9 Low Positive 30.0 - 79.9 Moderate Positive >79.9 High PositivePerformed By: #### CBC, SED, CP, TSH #### [facility] [address] [place] [address] Tool Grinder: Ozzy Young MD #### RA, B12FOL, TREP, ANASCX, LUPPRO #### [facility] [address] [place], [place] [phone] Tool Grinder: DUANE Garvey Screenon 32-31-1539HXR ScreenNegativeNormal NEGShelby Memorial HospitalComment on above:Result Comment: This test was run on the [employer] ELVIA test system. The system provides ten test results (HEp-2NA, dsDNA, SSA, SSB, Sm, UX DEVELOPER DESIGNER, Scl-70, Taryn-1, Centromere and Histone analytes) from a single patient sample. A negative ELVIA screen indicates that the specimen was negative for all ten markers.Performed By: #### CBC, SED, CP, TSH #### [facility] [address] [place] [address] Tool Grinder: Ozzy Young MD #### RA, B12FOL, TREP, ANASCX, LUPPRO #### [facility] [address] [place], [place] [phone] Tool Grinder: Eric Garveyus Anticoagulanton 14-02-9838uZTX Coag (Bld) [Time]30.2 zDywkoa53.5-30.5Shelby Memorial HospitalComment on above:Result Comment: IV Heparin Therapy Range: 48.6-77.8Performed By: #### CBC, SED, CP, TSH #### [facility] [address] [place] [address] Tool Grinder: Ozzy Young MD #### RA, B12FOL, TREP, ANASCX, LUPPRO #### [facility] [address] [place], [place] [phone] Tool Grinder: Ozzy Young MDINR Coag (PPP) [Relative time]1.0 {INR}Normal [facility] Memorial HospitalComment on above:Result Comment: Therapeutic Range: Moderate Anticoagulant Intensity: INR = 2.0-3.0 High Anticoagulant Intensity: INR = 2.5-3.5Performed By: #### CBC, SED, CP, TSH #### [facility] [address] [place] [address] Tool Grinder: Ozzy Young MD #### RA, B12FOL, TREP, ANASCX, LUPPRO #### [place] [phone] Tool Grinder: EMBER Garvey Coag (PPP) [Time]10.5 sNormal9.0-12.0S[facility] Memorial HospitalComment on above:Performed By: #### CBC, SED, CP, TSH #### [facility] [address] [place] [address] Tool Grinder: Ozzy Young MD #### RA, B12FOL, TREP, ANASCX, LUPPRO #### [facility] [address] [place], [place] [phone] Tool Grinder: GLADYS Garvey.pallidum Ab Screenon 12-02-2019T.pallidum Ab ScreenNONREACTIVENormalMercy Health St. Charles HospitalComment on above:Result Comment: T. pallidum antibodies are not detected. There is no serological evidence of infection with T. pallidum (early primary syphilis cannot be excluded). Retest in 2-4 weeks if syphilis is clinically suspect.Performed By: #### CBC, SED, CP, TSH #### [facility] [address] [place] [address] Tool Grinder: Ozzy Young MD #### RA, B12FOL, TREP, ANASCX, LUPPRO #### [facility] [address] [place], [place] [phone] Tool Grinder: Ozzy Young MDB12/Folate Panelon 11-70-3263Teacqcbli (Vitamin B12) [Mass/Vol]632 pg/zNNgdocb053-2188MifndShelby Memorial HospitalComment on above: Performed By: #### CBC, SED, CP, TSH #### [facility] [address] [place] [address] Tool Grinder: Ozzy Young MD #### RA, B12FOL, TREP, ANASCX, LUPPRO #### [facility] [address] [place] [address] [phone] Tool Grinder: Ozzy Young MDFolic Acid12.8 ng/mLNormal>4.8[facility] HospitalComment on above:Performed By: #### CBC, SED, CP, TSH #### [facility] [address] [place] [address] Tool Grinder: Ozzy Young MD #### RA, B12FOL, TREP, ANASCX, LUPPRO #### [place] [phone] Tool Grinder: Sudha Garvey 62-55-5149Ebwjacriguv distribution width (RBC) [Ratio]12.1 %Eruemf11.8-14.4[facility] HospitalComment on above: Performed By: #### CBC, SED, CP, TSH #### [facility] [address] [place] [address] Tool Grinder: Ozzy Young MD #### RA, B12FOL, TREP, ANASCX, LUPPRO #### [facility] [address] [place], [place] [phone] Tool Grinder: Ozzy Young MDHematocrit (Bld) [Volume fraction]43.0 %Normal 36.3-47.1MercNoxubee General HospitalComment on above:Performed By: #### CBC, SED, CP, TSH #### [facility] [address] [place] [address] Tool Grinder: Ozzy Young MD #### RA, B12FOL, TREP, ANASCX, LUPPRO #### [facility] [phone] Tool Grinder: Ozzy Young MDHemoglobin (Bld) [Mass/Vol]13.8 g/dLNormal 11.9-15.1MUniversity Tuberculosis Hospital HospitalComment on above:Performed By: #### CBC, SED, CP, TSH #### [facility] [address] [place] [address] [phone] Tool Grinder: Ozzy Young MD #### RA, B12FOL, TREP, ANASCX, LUPPRO #### [address] [phone] Tool Grinder: CHRISTINE GarveyCH (RBC) [Entitic mass]29.8 rfSicvwy64.2-33.5 [facility] HospitalComment on above:Performed By: #### CBC, SED, CP, TSH #### [facility] [address] [place] [address] Tool Grinder: Ozzy Young MD #### RA, B12FOL, TREP, ANASCX, LUPPRO #### [place] [address] Tool Grinder: KRYSTIN GarveyC (RBC) [Mass/Vol]32.1 g/aGMlkklu16.2-33.5 [facility] HospitalComment on above:Performed By: #### CBC, SED, CP, TSH #### [facility] [address] [place] [address] Tool Grinder: Ozzy Young MD #### RA, B12FOL, TREP, ANASCX, LUPPRO #### [address] [phone] Tool Grinder: CHRISTINE GarveyCV (RBC) [Entitic vol]92.9 sVEvynek05.6-102.9 [facility] HospitalComment on above:Performed By: #### CBC, SED, CP, TSH #### [facility] [address] [place] [id number] Tool Grinder: Ozzy Young MD #### RA, B12FOL, TREP, ANASCX, LUPPRO #### [address] [address] Tool Grinder: Ozzy Young MDNRBC Automated0.0 per 100 WBCNormal0.0S[facility] Memorial HospitalComment on above:Performed By: #### CBC, SED, CP, TSH #### [facility] [address] [place] [address] Tool Grinder: Ozzy Young MD #### RA, B12FOL, TREP, ANASCX, LUPPRO #### [address] [address] Tool Grinder: Niyah Garvey mean volume (Bld) [Entitic vol]9.2 fL Normal8.1-13.5S[facility] Memorial HospitalComment on above:Performed By: #### CBC, SED, CP, TSH #### [facility] [address] [place] [address] Tool Grinder: Ozzy Young MD #### RA, B12FOL, TREP, ANASCX, LUPPRO #### [address] [address] Tool Grinder: Golden Garvey (Bld) [#/Vol]327 10*3/oEUmoass224-625 [facility] Memorial HospitalCommclaren lapeer region on above:Performed By: #### CBC, SED, CP, TSH #### [facility] [address] [place] [id number] Tool Grinder: Ozzy Young MD #### RA, B12FOL, TREP, ANASCX, LUPPRO #### [address] [phone] Tool Grinder: PAULETTE GarveyBC (Bld) [#/Vol]4.63 10*6/uLNormal3.95-5.11 [facility] HospitalComment on above:Performed By: #### CBC, SED, CP, TSH #### [facility] [address] [place] [address] Tool Grinder: Ozzy Young MD #### RA, B12FOL, TREP, ANASCX, LUPPRO #### [facility] [address] [place], [place] [phone] Tool Grinder: Ozzy Young MDWBC (Bld) [#/Vol]8.1 10*3/uLNormal4.5-13.5[facility] HospitalComment on above:Performed By: #### CBC, SED, CP, TSH #### [facility] [address] [place] [address] Tool Grinder: Ozzy Young MD #### RA, B12FOL, TREP, ANASCX, LUPPRO #### [facility] [address] [place] [address] [phone] Tool Grinder: Ozzy Young MDErythrocyte distribution width (RBC) [Ratio]12.1 %11.8 - 14.4 %[place], KYHematocrit (Bld) [Volume fraction]43.0 %36.3 - 47.1 %[facility], NYHemoglobin (Bld) [Mass/Vol]13.8 g/dL11.9 - 15.1 g/dL [facility], [facility] (RBC) [Entitic mass]29.8 pg25.2 - 33.5 pgAshtabula General Hospital, [facility] OKEMAHHC (RBC) [Mass/Vol]32.1 g/dL25.2 - 33.5 g/dLAshtabula General Hospital, [facility] OKEMAHV (RBC) [Entitic vol]92.9 fL82.6 - 102.9 fLAshtabula General Hospital, NYPlatelet mean volume (Bld) [Entitic vol]9.2 fL8.1 - 13.5 fLAshtabula General Hospital, NYPlatelets (Bld) [#/Vol]327 10*3/[facility], NYRBC (Bld) [#/Vol]4.63 10*6/uL3.95 - 5.11 m/[facility], NYWBC (Bld) [#/Vol]8.1 10*3/[facility], [facility]AMPUSBC (Bld) [#/Vol]0.0 10*3/uL0.0 per 100 WBCAshtabula General Hospital, [facility] Metabolic Profon 12-01-2019(cont.)[facility] HospitalComment on above:Result Comment: Average GFR for <20 years old not available. Chronic Kidney Disease: <60 mL/min/1.73sq m Kidney failure: <15 mL/min/1.73sq m eGFR calculated using average adult body mass. Additional eGFR calculator available at: http://www.Cinetraffic/multiple_crcl_2012.htmPerformed By: #### CBC, SED, CP, TSH #### [facility] [address] [place] [address] Tool Grinder: Ozzy Young MD #### RA, B12FOL, TREP, ANASCX, LUPPRO #### [facility] [address] [place] [id number] Tool Grinder: Ozzy Young MDAlbumin [Mass/Vol]4.6 g/dLNormal3.5-5.2MAshtabula County Medical CenterComment on above:Performed By: #### CBC, SED, CP, TSH #### [facility] [address] [place] [address] Tool Grinder: Ozzy Young MD #### RA, B12FOL, TREP, ANASCX, LUPPRO #### [facility] [place] [phone] Tool Grinder: Ozzy Young MDAlbumin/Globulin [Mass ratio]1.7 {ratio}Normal 1.0-2.5[facility] HospitalComment on above:Performed By: #### CBC, SED, CP, TSH #### [facility] [address] [place] [address] Tool Grinder: Ozzy Young MD #### RA, B12FOL, TREP, ANASCX, LUPPRO #### [address] [phone] Tool Grinder: Emy Garveyline Phos79 U/RJillnl04-511VkvqoShelby Memorial HospitalComment on above:Performed By: #### CBC, SED, CP, TSH #### [facility] [address] [place] [address] Tool Grinder: Ozzy Young MD #### RA, B12FOL, TREP, ANASCX, LUPPRO #### [place] [address] Tool Grinder: Ozzy Young MDALT [Catalytic activity/Vol]16 U/LNormal5-33 [facility] HospitalComment on above:Performed By: #### CBC, SED, CP, TSH #### [facility] [address] [place] [address] Tool Grinder: Ozzy Young MD #### RA, B12FOL, TREP, ANASCX, LUPPRO #### [place] [phone] Tool Grinder: Tracie Garvey gap [Moles/Vol]9 mmol/LNormal9-17[facility] HospitalComment on above:Performed By: #### CBC, SED, CP, TSH #### [facility] [address] [place] [address] Tool Grinder: Ozzy Young MD #### RA, B12FOL, TREP, ANASCX, LUPPRO #### [address] [address] Tool Grinder: Ozzy Young MDAST [Catalytic activity/Vol]18 U/LNormal<32S[facility] HospitalComment on above:Performed By: #### CBC, SED, CP, TSH #### [facility] [address] [place] [address] Tool Grinder: Ozzy Young MD #### RA, B12FOL, TREP, ANASCX, LUPPRO #### [address] [address] Tool Grinder: Ozzy Young MDBilirubin Ql (U)0.24 mg/dLLow0.3-1.2MAshtabula County Medical CenterComment on above:Performed By: #### CBC, SED, CP, TSH #### [facility] [address] [place] [address] Tool Grinder: Ozzy Young MD #### RA, B12FOL, TREP, ANASCX, LUPPRO #### [address] [address] Tool Grinder: Ozzy Young MDBUN/CRE Mnpts92Dzab0-24XnpqrShelby Memorial Hospital Comment on above:Performed By: #### CBC, SED, CP, TSH #### [facility] [address] [place] [address] Tool Grinder: Ozzy Young MD #### RA, B12FOL, TREP, ANASCX, LUPPRO #### [address] [address] Tool Grinder: GLENNY Garveyalcium [Mass/Vol]10.1 mg/dLNormal8.6-10.4[facility] HospitalComment on above:Performed By: #### CBC, SED, CP, TSH #### [facility] [address] [place] [address] Tool Grinder: Ozzy Young MD #### RA, B12FOL, TREP, ANASCX, LUPPRO #### [address] [phone] Tool Grinder: GLENNY Garveyhloride [Moles/Vol]102 mmol/CExwrkn05-312EepcpShelby Memorial HospitalComment on above:Performed By: #### CBC, SED, CP, TSH #### [facility] [address] [place] [address] Tool Grinder: Ozzy Young MD #### RA, B12FOL, TREP, ANASCX, LUPPRO #### [address] [phone] Tool Grinder: Ozzy Young MDCO2 [Moles/Vol]27 mmol/LDpdcph56-31FpzobShelby Memorial HospitalComment on above:Performed By: #### CBC, SED, CP, TSH #### [facility] [address] [place] [address] Tool Grinder: Ozzy Young MD #### RA, B12FOL, TREP, ANASCX, LUPPRO #### [address] [phone] Tool Grinder: GLENNY Garveyreatinine [Mass/Vol]0.61 mg/dLNormal0.50-0.90 [facility] HospitalComment on above:Performed By: #### CBC, SED, CP, TSH #### [facility] [address] [place] [id number] Tool Grinder: Ozzy Young MD #### RA, B12FOL, TREP, ANASCX, LUPPRO #### [address] [id number] Tool Grinder: Ozzy Young MDGFR,non AmerPediatric GFR requires additional information. Refer to NKDEP website forNormal>60MerProMedica Toledo Hospital HospitalComment on above:Result Comment: calculator.Performed By: #### CBC, SED, CP, TSH #### [facility] [address] [place] [address] Tool Grinder: Ozzy Young MD #### RA, B12FOL, TREP, ANASCX, LUPPRO #### [address] [phone] Tool Grinder: Ozzy Young MDGlucose [Mass/Vol]93 mg/lZSmczyg86-65FdgljAshtabula County Medical CenterComment on above:Performed By: #### CBC, SED, CP, TSH #### [facility] [address] [place] [address] Tool Grinder: Ozzy Young MD #### RA, B12FOL, TREP, ANASCX, LUPPRO #### [place] [id number] Tool Grinder: Ozzy Young MDPotassium [Moles/Vol]4.3 mmol/LNormal3.7-5.3 [facility] HospitalComment on above:Performed By: #### CBC, SED, CP, TSH #### [facility] [address] [place] [address] Tool Grinder: Ozzy Young MD #### RA, B12FOL, TREP, ANASCX, LUPPRO #### [address] [phone] Tool Grinder: Ozzy Young MDProtein [Mass/Vol]7.3 g/dLNormal6.4-8.3MUniversity Tuberculosis Hospital HospitalComment on above:Performed By: #### CBC, SED, CP, TSH #### [facility] [address] [place] [address] Tool Grinder: Ozzy Young MD #### RA, B12FOL, TREP, ANASCX, LUPPRO #### [address] [phone] Tool Grinder: MORE Garveyodium [Moles/Vol]138 mmol/FQhcgnk742-378Uigph Joliet HospitalComment on above:Performed By: #### CBC, SED, CP, TSH #### [facility] [address] [place] [address] Tool Grinder: Ozzy Young MD #### RA, B12FOL, TREP, ANASCX, LUPPRO #### [address] [phone] Tool Grinder: Ozzy Young MDUrea nitrogen [Mass/Vol]13 mg/dLNormal6-20Mercy Joliet HospitalComment on above:Performed By: #### CBC, SED, CP, TSH #### [facility] [address] [place] [address] Tool Grinder: Ozzy Young MD #### RA, B12FOL, TREP, ANASCX, LUPPRO #### [address] [id number] Tool Grinder: Ozzy Young MDGFR, AmerNOT REPORTEDNormal>60Mercy Joliet HospitalComment on above:Performed By: #### CBC, SED, CP, TSH #### [facility] [address] [place] [address] Tool Grinder: Ozzy Young MD #### RA, B12FOL, TREP, ANASCX, LUPPRO #### [address] [address] Tool Grinder: MORE Garveytaging:NOT REPORTEDNormalMercy Joliet HospitalComment on above:Performed By: #### CBC, SED, CP, TSH #### [facility] [address] [place] [address] Tool Grinder: Ozzy Young MD #### RA, B12FOL, TREP, ANASCX, LUPPRO #### [facility] [address] [place] [address] Tool Grinder: Ozzy Young [facility] – OKLAHOMA CITYomprehensive Metabolic Panelon 12-01-2019 Albumin [Mass/Vol]4.6 g/dL3.5 - 5.2 g/dLAshtabula General Hospital, KYAlbumin/Globulin [Mass ratio]1.7 {ratio}[facility], KYALP [Catalytic activity/Vol]79 U/L35 - 104 U/LMTrumbull Regional Medical Center [place], KYALT [Catalytic activity/Vol]16 U/L5 - 33 U/LMTrumbull Regional Medical Center [place], KYAnion gap [Moles/Vol]9 mmol/L9 - 17 mmol/LMTrumbull Regional Medical Center [place], KYAST [Catalytic activity/Vol]18 U/L<32[facility] [place], KYBilirubin Ql (U)0.24 mg/dL Low0.3 - 1.2 mg/dLAshtabula General Hospital, KYBun/Cre Iwqgy83GeduBxwwg Health- [place], [place] Calcium [Mass/Vol]10.1 mg/dL8.6 - 10.4 mg/dLAshtabula General Hospital, KYChloride [Moles/Vol]102 mmol/L98 - 107 mmol/LMTrumbull Regional Medical Center [place], KYCO2 [Moles/Vol]27 mmol/L 20 - 31 mmol/LMTrumbull Regional Medical Center [place], KYCreatinine [Mass/Vol]0.61 mg/dL0.5 - 0.9 mg/dL [facility], KYGFR AmericanNOT REPORTED>60 mL/minRegency Hospital Company- [place], KYGFR Non- AmericanPediatric GFR requires additional information. Refer to NKDEP website for calculator.>60 mL/minAshtabula General Hospital, KYGFR/1.73 sq M predicted among non-blacks MDRD (S/P/Bld) [Vol rate/Area][facility], [place] Comment on above:Average GFR for <20 years old not available. Chronic Kidney Disease: <60 mL/min/1.73sq m Kidney failure: <15 mL/min/1.73sq m eGFR calculated using average adult body mass. Additional eGFR calculator available at: http://www.[employer].Ecal/multiple_crcl_2012.htm GFR/1.73 sq M predicted among non-blacks MDRD (S/P/Bld) [Vol rate/Area]NOT REPORTEDAshtabula General Hospital, KYGlucose [Mass/Vol]93 mg/dL70 - 99 mg/dLAshtabula General Hospital, KYInterpretation and review of laboratory resultsAbnormalAshtabula General Hospital, KYPotassium [Moles/Vol]4.3 mmol/L3.7 - 5.3 mmol/LMUC Medical Center, KYProtein [Mass/Vol]7.3 g/dL6.4 - 8.3 g/dLAshtabula General Hospital, KYSodium [Moles/Vol]138 mmol/L 135 - 144 mmol/[facility], KYUrea nitrogen [Mass/Vol]13 mg/dL6 - 20 mg/dL [facility], KYLupus Anticoagulanton 88-96-2656Utkfr AnticoagulantNOT REPORTEDNoTriHealth Bethesda Butler HospitalComment on above:Performed By: #### CBC, SED, CP, TSH #### [facility] [address] [place] [address] Tool Grinder: Ozzy Young MD #### RA, B12FOL, TREP, ANASCX, LUPPRO #### [facility] [address] [place] [address] [id number] Tool Grinder: SIRI Garvey Screenon 04-36-0699PI Screen<10Normal<14Shelby Memorial HospitalComment on above:Performed By: #### CBC, SED, CP, TSH #### [facility] [address] [place] [address] Tool Grinder: Ozzy Young MD #### RA, B12FOL, TREP, ANASCX, LUPPRO #### [facility] [address] [place] [address] [id number] Tool Grinder: Ozzy Young MDRheumatoid Factoron 84-79-2501Losxozryok Factor <10<14 IU/mLAshtabula General Hospital, KYSedimentation Rateon 52-51-1781Rhradkbfwlplo Rate4 mmNormal0-20S[facility] Memorial HospitalComment on above:Performed By: #### CBC, SED, CP, TSH #### [facility] [address] [place] [address] Tool Grinder: Ozzy Young MD #### RA, B12FOL, TREP, ANASCX, LUPPRO #### [facility] [place], [place] [phone] Tool Grinder: Ozzy Young MDSed Rate4 mm0 - 20 mmAshtabula General Hospital, KYT. pallidum Abon 12-01-2019T. pallidum, IgGNONREACTIVENONREACTIVEAshtabula General Hospital, KYComment on above: T. pallidum antibodies are not detected. There is no serological evidence of infection with T. pallidum (early primary syphilis cannot be excluded). Retest in 2-4 weeks if syphilis is clinically suspect. TSH without Reflexon 70-13-8069XYD Qn1.09 m[IU]/LMUC Medical Center, KYThyroid Stim. Horm.on 72-50-1875YGQ Qn1.09 m[IU]/LNormal0.30-5.00[facility] Comment on above:Performed By: #### CBC, SED, CP, TSH #### [facility] [address] [place] [address] Tool Grinder: Ozzy Young MD #### RA, B12FOL, TREP, ANASCX, LUPPRO #### [facility] [address] [place], [place] 1967208 Tool Grinder: Ozzy Young MDVitamin B12 & Folateon 67-12-3089Bykmbhkzq (Vitamin B12) [Mass/Vol]632 pg/mL232 - 1245 pg/mLAshtabula General Hospital, KHFphnxl01.8 ng/mL>4.8[facility], NYAmbulatory Clinical Summaryon 73-78-3073Yalyuylrsz Clinical Summary{[id number]-[id number]-[id number]}CD:[id number] Marlon [facility] CenterPediatrics Office/Clinic Noteon 01-97-8292Fejrbiixed Office/Clinic NoteChief Complaint Patient in office with mom for [...] without any improvement. She has been tested forCOVID 19 and was negative. No abdominal pain or vomiting. NO sore throat. Coughing has been ongoingfor the past year; Headaches for the past [...] day(s), # 28 cap(s), Refills(s) 0, Pharmacy: [facility]/pharmacy #[id number], 169, cm, 10/28/19 10:38:00 EDT, Height/Length Dosing, 67.9, kg, 10/28/19 10:38:00 EDT, Weight Dosing 2. 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 Living [...] virus vaccine, inactivated 1 (more content not included)...Normal [facility] CampusAmbulatory Clinical Summaryon 63-31-3068Nxuoplpleh Clinical Summary{[id number]-[id number]-60-ef}CD:[id number] Memorial HospitalAmbulatory Clinical Summaryon 44-89-9256Hzpjzwchjg Clinical Summary{[id number]-ff-42}CD:191008KjpurgMagruder Memorial HospitalConsenton 58-06-5247Bvrydax [id number]#1.00CD:127[facility]Immunization Recordson 98-98-9170Zwjgjgtcghgj Records [id number]#1.00CD:127[facility] DaytonPatient Educationon 48-00-4800Ebsdnpk EducationAllergy and Immunology Sinusitis, Child Sinusitis is redness, [...] headaches can occur are poorly developed 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 DIAGNOSIS Your child's caregiver will perform a [...] sinusitis, one or more of the following testsmay be recommended: ? Allergy tests. ? ? [...] possible. ?? ? Only give your child blpk-vnk-ooiagqa or prescription medicines for pain, fever, or discomfort asdirected the caregiver. Do not give aspirin to [...] YOU ? Understand thes (more content not included)...[facility]Pediatrics Office/Clinic Noteon 53-85-3481Iewcrkwmtu Office/Clinic Note Chief Complaint Patient in office with mother for daily headaches that have started for about a month ago, she alsohas a cough for a long time now/rp [...] Depression Screen Score: 0 ROS - Provider CONSTITUTIONAL:Negative for growth problems, fatigue, unexplained fevers, and [...] both are normal Ears TM's right normal _,left normal _; Nasal Septum/Mucosa: purulent rhinorrhea with [...] (6 months on up) as directed for pain/fever/discomfort. *A cool mist or warm mist vaporizer may help with relief of symptoms. *Call or have your child be seen at ER/URgent care for worsening of symptoms. Ordered: amoxicillin-clavulanate, 1 tab(s), Oral, BID for 10 day(s), 20 tab(s), Refill(s) 0, [facility] #[id number], 169, cm, 10/14/19 11:48:00 EDT, Height/Length Measured, 76.29, kg, 10/14/19 11:48:00 EDT, Weight Measured fluticasone nasal, 1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 NeurosurgeryComment on above:xx-Lumbar-6 week follow up w/XR @ [facility]yStart: 07-16-2024 End: 86-84-3412QV Lumbar spine 2 or 3 ViewsXR LUMBAR SPINE (2-3 VIEWS) Imaging Routine Closed compression fracture of L2 lumbar vertebra, initial encounter (HCC) Expected: 07/16/2024, Expires: 06/16/2025on [facility] CenterComment on above:Expected: 07/16/2024, Expires: 06/16/2025Start: 06-20-2024 End: 48-41-8634Hyfvgfs encounter hbddkrfby58/07/2025 1:40 PM EDT Office Visit [facility] [address] [place] [phone] Ignacio Manzanares DO [address] [facility] [address] [place], [place] [id number] ArrivedNOMOUNT ZION CAMPUS OBComment on above:ArrivedStart: 04-12-2024 End: 51-59-6339Bnoreiy encounter saopioske37/28/2025 9:00 AM EST Office Visit [facility] [address] [facility] [place] [phone] Melinda Dumont, PA [address] [place], [facility] ArrivedNOMS [facility] OBComment on above:ArrivedStart: 01-01-2024 Urine cultureRegency Hospital Toledotart: 72-57-9938Rzaiqecs identified in Urine by CultureUrine [facility] Start: 13-70-1997GNCGP-19 Vaccine ( season)COVID-19 Vaccine ( season)Bon [facility] CenterStart: 62-62-1992Qssbiqk referral [facility] Work Phone: Start: 71-99-2011DOtZ/Tdap/Td vaccine (7 - Td or Tdap) DTaP/Tdap/Td vaccine (7 - Td or Tdap)Bon [facility] CenterStart: 12-09-2022 DTaP/Tdap/Td vaccine (7 - Td)DTaP/Tdap/Td vaccine (7 - Td)[facility], [place] Start: 10-70-9423Raigqftgh for malignant neoplasm of cervixPap smearChildren'S Hospital Of Richmond At VcuStart: 01-25-2020 End: 45-23-3494Heiibo Visit01/25/2020 Office Visit Neurology Jam Camara MD [address] [place] [address] [facility] Neurology [facility]: 01-18-2020 End: 46-16-5693Papcibpglfu76/04/2020 Appointment EEGMDHZ EEGStart: 12-21-2019 End: 68-17-3560Bmyyxxctzip28/07/2020 Appointment [facility] MRIStart: 49-52-6297Yznmpoikm vaccinationFlu vaccine (#1)[place], [place] Start: 26-48-0190Ibkdukcoc C screeningHepatitis C screenBon [facility] Start: 01-18-0332Uukwbamzf vaccinationFlu vaccine (#1)[facility]: 90-02-9656Cfelxodjk screenChlamydia [facility]: 2016 Meningococcal (ACWY) Vaccine (1 - 2-dose series)Meningococcal (ACWY) Vaccine (1 - 2-dose series)[facility]: 75-97-7196Eyfuwkpbp for Chlamydia trachomatisBon [facility]: 40-59-3742DRG screenHIV [facility]: 14-36-3151KZD screeningHIV screenBon [facility] Start: 23-70-3191EKU vaccine (1 - Female 3-dose series)HPV vaccine (1 - Female 3-dose series)[facility]: 25-45-2093Kpfhgnmhh Vaccine (1 of 2 - 13+ 2-dose series)Varicella Vaccine (1 of 2 - 13+ 2-dose series)[facility]: 82-67-9875Hfcjwxgstk MonitoringDepression MonitoringBon [facility]: 71-02-4452HSbS/Tdap/Td vaccine (1 - Tdap)DTaP/Tdap/Td vaccine (1 - Tdap)[facility]: 88-22-9793Inppogtmb A vaccine (1 of 2 - 2- dose series)Hepatitis A vaccine (1 of 2 - 2-dose series)[place], [place] Start: 92-45-3833Hkwmncp,Mumps,Rubella (MMR) vaccine (1 of 2 - Standard series) Measles,Mumps,Rubella (MMR) vaccine (1 of 2 - Standard series)[facility]: 69-60-5318Wqtxwstgd B Vaccine (1 of 3 - 3-dose primary series)Hepatitis B Vaccine (1 of 3 - 3-dose primary series)[facility], [place] End: 42-31-6694MGC Screen with ReflexANA Screen with Reflex Lab Routine Anxiety Bipolar affective disorder, current episode manic, current episode severity unspecified (HCC) Major depressive disorder with single episode, in full remission (HCC) Chronic migraine Frontal headache Intractable migraine without aura and with status migrainosus Family history of migraine Family history of bipolar disorder 1 Occurrences starting 12/01/2019until 12/01/2019[facility], KYComment on above:1 Occurrences starting 12/01/2019 until 12/01/2019ANA Screen with ReflexANA Screen with Reflex Lab Routine Anxiety Bipolar affective disorder, current episode manic, current episode severity unspecified (HCC) Major depressive disorder with single episode, in full remission (HCC) Chronic migraine Frontal headache Intractable migraine without aura and with status migrainosus Family history of migraine Family history of bipolar disorder 12/01/2019 4:13 PM EDRegency Hospital Company, NYCytology Cervical or vaginal smear or scraping studyPap Smear Pathology and Cytology Routine Well woman exam with routine gynecological exam Ordered: 04/12/2024[facility] Work Phone: comment on above:Ordered: 04/12/2024 End: 53-32-9991XOIPOX Neurology Routine Anxiety Bipolar affective disorder, current episode manic, current episode severity unspecified (HCC) Major depressive disorder with single episode, in full remission (HCC) Chronic migraine Frontal headache Intractable migraine without aura and with status migrainosus Family history of migraine Family history of bipolar disorder 1 Occurrences starting 12/28/2019 until 12/28/2019[facility], [place]Comment on above:1 Occurrences starting 12/28/2019 until 12/28/2019 End: 21-00-5911Nyshf AnticoagulantLupus Anticoagulant Lab Routine Anxiety Bipolar affective disorder, current episode manic, current episode severity unspecified (HCC) Major depressive disorder with single episode, in full remission (HCC) Chronic migraine Frontal headache Intractable migraine without aura and with status migrainosus Family history of migraine Family history of bipolar disorder 1 Occurrences starting 12/01/2019 until 12/01/2019[facility], KYComment on above:1 Occurrences starting 12/01/2019 until 12/01/2019Lupus AnticoagulantLupus Anticoagulant Lab Routine Anxiety Bipolar affective disorder, current episode manic, current episode severity unspecified (HCC) Major depressive disorder with single episode, in full remission (HCC) Chronic migraine Frontal headache Intractable migraine without aura and with status migrainosus Family history of migraine Family history of bipolar disorder 12/01/2019 4:13 PM EDUnityPoint Health, KYPatient [facility] Work Phone: Patient [facility] Work Phone: End: 33-36-8217CkbdmitoagNgcaphfhua Lab STAT One Time for 1 Occurrences starting 06/16/2024 until 06/16/2024on TekmiComment on above:One Time for 1 Occurrences starting 06/16/2024 until 06/16/2024XR CHEST PORTABLEXR CHEST PORTABLE Imaging STAT 12/03/2018 5:55 PM EDUnityPoint Health, KYXR HIP 2-3 VW W PELVIS RIGHTXR HIP 2-3 VW W PELVIS RIGHT Imaging STAT 12/03/2018 5:55 PM EDT [employer]- [place], [place] End: 73-96-3476ZU Lumbar spine 2 or 3 ViewsBon [employer] Work Phone: Comment on above:1 Occurrences starting 07/26/2024 until 07/26/2024 End: 72-05-3997RK Lumbar spine 2 or 3 ViewsBon [employer] Work Phone: Comment on above:1 Occurrences starting 09/20/2024 until 09/20/2024 Immunizations Immunization DateImmunizationNotesCare EyruzzukIzvuzase29-34-9352aangblfej virus vaccine, split virus (incl. purified surface antigen)George Means Other [facility] [employer] Other [id number] virus vaccine, unspecified formulationClinton Memorial Hospital Payers DatePayer CategoryPayerPolicy [id number] [facility] Member Subscriber Plan / Payer (Effective 2023-Present) Name: Doris Johns Relation to Subscriber: Child Name: RENEA JOHNS Date of : 1975 Address: [address] [place] [address] Payer ID: Not on file Type: Not on file Address: [address] [place] [id number]911-43-3619Npyxgrj Health InsuranceSELECT [facility] xxxxxxxxx 2014-Present [phone] [address] [place] [address]xdaujyfmn [id number]TJAVBWW PROGRESSIVE 2014-Present [phone] [facility] [address] [place] [id number] 2.840.1.831357.3.57[id number] 2.840.1.950084.3.57[id number] 2.840.1.018467.3.57[id number] 2.840.1.643862.3.57[id number] 2.16.840.1.151034.3.57[id number] 2.16.840.1.490081.3.57[id number] 2.0.1.183580.3.57[id number] 2.16840.1.660813.3.57[id number] 2.0.1.923837.3.579.2.99503-24-9731Grko-vsm88-17-3566SjfocflDOEHQCGU Member Subscriber Plan / Payer (Effective 1899-Present) Name: OsvaldoDoris Relation to Subscriber: Self Name: Osvaldo Doris Guevara Payer ID: Not on file Group ID: [id number] Type: Not on file Address: [address] [id number] 2..1.0[id number] 2..1.052870.3.579.2.531 [id number] 2..1.209329.3.579.2.531 Social History DateTypeDetailFacilityStart: 68-86-2712Dfspqdm smoking status NHISUnknown if ever smokedDayton Osteopathic Hospital: 01-75-2418Blf Assigned At BirthNot on file [facility]: 12-01-2019 End: 10-60-9139Wmaxznh smoking status NHISNever smokerNOMS HealthcareStart: 12-01-2019 End: 95-96-9476Wefmfgz use and exposureNever usedCenterville SOPHIEStart: 12-01-2019 End: 01-55-6534Lrxyxgn intakeLifetime non-drinker (finding)[place] [facility] Start: 52-78-3493Lecubmp SDOH Alcohol Dzhrecfti3AuatmPine [place], KYStart: 03-13-2023 End: 57-94-7612Gse Assigned At [facility] HospitalStart: 59-33-8470Mar Assigned At [facility] Hospitaltart: 03-13-2023 End: 62-28-1468Jgfhbre of Social functionChildren'S Hospital Of Richmond At VcuStart: 03-15-5995Hczfie identityIdentifies as female gender (finding)[facility] Start: 40-61-9906Zgahzm orientationBisexual (finding)[facility] HealthcareHow often to you have a drink containing alcohol?NeverCommunity Health SystemsSonar.me [facility] CompanyAverage Number of DrinksNot on fileChildren'S Hospital Of Richmond At Vcu(I/We) worried whether (my/our) food would run out before (I/we) got money to buy more.Never trueChildren'S Hospital Of Richmond At VcuStart: 04-25-2012 End: 02-48-9626ImdEtucqh (finding)[facility] VcuNEGATED: Highlighted [facility] SystemNEGATED: Highlighted [facility] Clinical Notes 02-04-2023 to 11-03-2024 Note Date & EtgkSydwEnremvpu42-80-8621 NoteCardiovascular Medicine [facility] SUBJECTIVE Chief Complaint Patient presents with Palpitations SVT Doris Johns is a 23 y.o. female here for follow-up. PMHx: SVT, migraine headaches, scoliosis, seasonal allergies, bipolar disorder, and anxiety. While working at [employer], she experienced sudden ringing and burning in her ears, spotty vision, temperature fluctuations, syncope HPI 11/03/2024 She is here today for follow-up after her ER visit at [facility]. She went to the ER after finding her HR to be in the 170s - she was symptomatic with dizziness/LH, palpitations, and SOB. Since then no further episodes with HR's in the 170s but she will wake up her HR will be in the 140s. Sx's include dizziness/LH and palpitations. Denies c/o CP, dyspnea, orthopnea, PND, LE edema, syncope. Problem List[1] Medical History[2] Family History[3] Social History[4] Allergies[5] OBJECTIVE Visit Vitals BP 115/78 (BP Location: Right arm, Patient Position: Sitting) Pulse 94 Ht 1.702 m (5' 7 ) Wt 83 kg (183 lb) SpO2 97% BMI 28.66 kg/m??? Smoking Status Former BSA 1.98 m??? Medications: Current Medications[6] Physical Exam Vitals reviewed. Constitutional: Appearance: Normal appearance. She is normal weight. HENT: Head: Normocephalic and atraumatic. Right Ear: External ear normal. Left Ear: External ear normal. Eyes: Extraocular Movements: Extraocular movements intact. Conjunctiva/sclera: Conjunctivae normal. Pupils: Pupils are equal, round, and reactive to light. Neck: Vascular: No carotid bruit. Cardiovascular: Rate and Rhythm: Normal rate and regular rhythm. Pulses: Normal pulses. Heart sounds: Normal heart sounds. Pulmonary: Effort: Pulmonary effort is normal. Breath sounds: Normal breath sounds. Abdominal: General: Bowel sounds are normal. Palpations: Abdomen is soft. Musculoskeletal: Cervical back: Neck supple. Right lower leg: No edema. Left lower leg: No edema. Skin: General: Skin is warm and dry. Neurological: General: No focal deficit present. Mental Status: She is alert and oriented to person, place, and time. Psychiatric: Mood and Affect: Mood normal. Behavior: Behavior normal. Thought Content: Thought content normal. Judgment: Judgment normal. Labs: No results found for: EXTCMP , BMPR1A , CBCDIF , BNP , LASAP , RED No visits with results within 6 Month(s) from this visit. Latest known visit with results is: No results found for any previous visit. 10/19/24 Hgb 14.8, plt 318 Cr 0.83, BUN 11, K 4.1, Na 141, eGFR >60, AST 15, ALT 16 Mag 2 TropHS <3 BNP 15 TSH 1.82 Testing/Procedures: Tilt test: 06/01/23 AT BASELINE, Had a supine blood pressure of 114/78 MmHg, a heart rate of 80 and Normal Sinus rhythm. Symptoms at baseline: asymptomatic. THE PATIENT WAS TILTED to 70 degree head upright position for 16 minutes. She had a maximum blood pressure of 142/91 mmHg, a heart rate of 137 bpm and Sinus Tachycardia rhythm at minute 5. She had a minimum blood pressure of 103/77 mmHg, a heart rate of 48 bpm and Sinus Bradycardia rhythm at minute 16. Symptoms during initial Tilt: chest tightness, difficulty breathing, ears ringing, pale, syncope. THE TEST WAS COMPLETED and the patient was returned to supine position. She had a blood pressure of 121/83 mmHg, a heart rate of 70 bpm, and Normal Sinus rhythm. Symptoms Post Test: asymptomatic, return to baseline. FINAL IMPRESSION: Positive study for Postural Orthostatic Tachycardia Syndrome TTE 02/24/23: Cardiac event monitor: 48 hour holter 02/2023 ASSESSMENT/PLAN: Diagnoses and all orders for this visit: Paroxysmal supraventricular tachycardia - propafenone SR (Rythmol SR) 325 mg 12 hr capsule; Take 1 capsule (325 mg) by mouth two times daily. Do not crush, chew, or split. - ECG 12 lead; Future SVT (supraventricular tachycardia) Syncope and collapse Palpitations Shortness of breath #Syncope #Palpitations #SVT #POTS Tilt table test 06/01/2023 indicative of postural tachycardia syndrome without any evidence of orthostatic hypotension 30-day event monitor April 2023: The monitor revealed a long RP tachycardia at 160 bpm occurring with minimal activity, including episodes around 3 a.m., during which the patient reported being awake and studying. Given the frequency of symptoms at the time, she was started on a Class Ic agent, sustained-release propafenone 225 mg twice daily, with significant improvement. *She had a recent ER visit due to break through s's, she noted HR was in the 170s for about 30 minutes before she presented to the ER. By the time she arrived her HR had improved. She notes intermittent episodes when she wakes up where her HR will be in the 140's. Rest improves things. -Will increase propafenone SR to 325 mg q12 hr -Repeat an EKG 1 week after starting increased dose. She is on some psych medicatio (more content not included)...[facility] 11-03-2024 NotePatient is here today for a follow from [facility] ER for SVT. Patient states since she left the ER her heart rates have been in the 140's in the morning. Patient states the ER told her she need her medication adjusted. Patient states she has been feeling better. Review of Systems Cardiovascular: Positive for near-syncope (in the am feels like she could pass-out).[facility]07-18-2025 NoteSUBJECTIVE Reason for Visit: Doris Johns is a 23 y.o. year old female patient being seen for 1 year follow-up. HPI: Doris Johns is a 23 y.o. year old female with significant medical history of migraine headaches, scoliosis, seasonal allergies, bipolar disorder, and anxiety. While working at [employer], she experienced sudden ringing and burning in her ears, spotty vision, temperature fluctuations, and then lost consciousness. She had only consumed an energy drink and granola bar that morning and was not exerting herself. EMS evaluated her with normal blood glucose, but she was not transported to the ER. She had a history of multiple syncopal episodes, some previously attributed to overheating during sports in high school. However, she stated this episode felt different. Her PCP ordered a TTE and Holter monitor, and she was seen by Dawit PRINGLE, who initiated a 30-day event monitor. She reported two episodes of LOC since October and multiple near-syncope events, with the most recent in April 2023. A TTE in February 2023 was unremarkable. Holter monitoring that same month showed sinus rhythm without arrhythmias concerning for syncope. No strips were available for review, but symptom markers during mild sinus tachycardia correlated with reports of chest pain and shortness of breath. 09/30/2024 office visit: Patient was seen and evaluated in the office today for her annual visit. She reports feeling excellent overall and denies any symptoms of palpitations, tachycardia, lightheadedness, dizziness, or presyncopal episodes. She also denies chest pain, dyspnea, or lower extremity edema. She has no concerns at this time. She mentioned a possible move to [place] within the next year to pursue a master???s degree and inquired about continuing care at our [facility]. 09/29/2023 office visit (Dr. Pandya): Patient here for 3 mo follow up after starting propafenone. Says she has felt much better taking it. She was without it for a few days and HR went up to 160's. When she went back on it she again felt much better. 06/16/23: Patient underwent a tilt table test which showed that she had symptoms of tachycardia with possible changes with no associated hypotension. Subsequently she had a sudden drop in heart rate when she was brought back to supine position and caused symptoms. She was recently in the [place] emergency room where she had presented with tachycardia also. Medical History[1] Surgical History[2] Problem List[3] family history includes Atrial fibrillation in her maternal grandmother; Coronary artery disease in her maternal grandmother; Heart failure in her maternal grandmother; Hyperlipidemia in her father and mother. Social History[4] OBJECTIVE Visit Vitals Smoking Status Never Physical Exam Constitutional: General Appearance: well-developed, appears stated age. Level of Distress: no acute distress. Neck: Jugular Veins: normal jugular venous pressure. Lungs: Auscultation: no rales or rhonchi and normal breath sounds. Cardiovascular: Rate And Rhythm: regular Heart Sounds: normal S1 and s2; Systolic Murmur: not heard. Diastolic Murmur: not heard. Extremities: no edema Peripheral Pulses: Pulses: full and equal in all extremities except if noted. Abdomen: Inspection and Palpation: non distended or tender and soft. Musculoskeletal: Inspection: no joint tenderness or swelling. Neurologic: Gait: normal gait. Psychiatric: Mental Status: alert and normal affect. Skin: Inspection and Palpation: warm and dry. Allergies: Allergies[5] Outpatient Medications: Current Outpatient Medications Medication Instructions albuterol 90 mcg/actuation inhaler 2 puffs, inhalation Caplyta 42 mg, oral, Daily cetirizine (ZyrTEC) 10 mg tablet 1 tablet, oral, Daily erenumab-aooe 140 mg, subcutaneous fluticasone (Flonase) 50 mcg/actuation nasal spray 1 spray hydrOXYzine HCL (Atarax) 25 mg tablet No dose, route, or frequency recorded. lamoTRIgine (LaMICtal) 200 mg tablet 1 tablet, oral, Daily metoclopramide (Reglan) 5 mg tablet Every 12 hours naproxen (EC Naprosyn) 500 mg EC tablet TAKE 1 TABLET BY MOUTH 2 TIMES A DAY WITH MEALS NEEDED omeprazole (PriLOSEC) [address] capsule 1 capsule, oral, Daily propafenone SR (Rythmol SR) 225 mg 12 hr capsule TAKE 1 CAPSULE BY MOUTH IN THE MORNING AND BEDTIME. QUEtiapine (SEROquel) 300 mg tablet No dose, route, or frequency recorded. SUMAtriptan (Imitrex) 100 mg tablet ONE TABLET FOR MIGRAINE NEEDED Recent Labs: No visits with results within 6 Month(s) from this visit. Latest known visit with results is: No results found for any previous visit. I have personally reviewed and anaylzed the following laboratory results above. These findings have been analyzed in the context of the patient's clinical presentation. Cardiovascular Diagnostic Studies: Tilt test: 06/01/23 AT BASELINE, Had a supine blood pressure o (more content not included)... [facility]06-12-2025 Evaluation note* Diagnosis Onset Date Resolution Status Admit Date Bipolar disease, chronic acuteJune 2024 1:35pmClosed L2 vertebral fractureacuteJune 2024 1:35pmMigraine headacheacuteJune 2024 1:35pmWellness examinationacuteJune 2024 1:35pm [facility] Work Phone: 1(649) 384-433604-11-2025 Evaluation note* Diagnosis Onset Date Resolution Status Admit Date Bipolar disease, chronic acuteApril 2024 11:01amClosed L2 vertebral fractureacuteApril 2024 11:01am [facility] Work Phone: 1(270) 218-335404-07-2025 History of Present illness Narrative* Tiffany Long NP - 06/20/2024 1:40 PM EDT Reason for Appointment: Patient ID: Doris Johns is a 23 y.o. female who presents for Results Patient presents today for Follow up appointment to discuss results. MEDICATIONS Current Outpatient Medications Medication Instructions albuterol HFA 90 mcg/act inhaler 2 puffs Inhalation 4 times a day or as needed for shortness of breath ARIPiprazole (ABILIFY) 7.5 mg, Daily RT cetirizine (ZyrTEC ALLERGY) 10 MG tablet Every 24 hours drospirenone-ethinyl estradiol (Maria A, Ocella) 3-0.03 MG tablet 1 tablet, Oral, Daily erenumab (Aimovig) 70 MG/ML injection hydrOXYzine HCl (Atarax) 25 MG tablet Every 24 hours lamoTRIgine (LaMICtal) 200 MG tablet 1 tablet, Daily RT Lybalvi 15-10 MG per tablet 1 tablet, Every 24 hours naproxen (Naprosyn) 500 MG tablet Every 12 hours omeprazole (PriLOSEC) [address] capsule Every 24 hours propafenone (RYTHMOL) 225 mg, Every 8 hours SUMAtriptan (Imitrex) 100 MG tablet ONE TABLET FOR MIGRAINE NEEDED topiramate 50 mg, Every 24 hours ALLERGIES No Known Allergies PROBLEMS Active Ambulatory Problems Diagnosis Date Noted No Active Ambulatory Problems Resolved Ambulatory Problems Diagnosis Date Noted No Resolved Ambulatory Problems Past Medical History: Diagnosis Date ADD (attention deficit disorder) Allergies Anxiety and depression (CMS/HCC) Bipolar disease, chronic (CMS/HCC) Contraception management Crohn disease (CMS/HCC) History of adenoidectomy Migraine headache (CMS/HCC) Nonsmoker Primary dysmenorrhea Scoliosis Seasonal allergies HISTORY PAST MEDICAL HISTORY SOCIAL HISTORY Past Medical History: Diagnosis Date ADD (attention deficit disorder) Allergies Anxiety and depression (CMS/HCC) Bipolar disease, chronic (CMS/HCC) Contraception management Crohn disease (CMS/HCC) History of adenoidectomy Migraine headache (CMS/HCC) Nonsmoker Primary dysmenorrhea Scoliosis Seasonal allergies Social History Tobacco Use Smoking status: Never Smokeless tobacco: Not on file Substance Use Topics Alcohol use: Never Drug use: Never FAMILY HISTORY No family history on file. SURGICAL HISTORY Past Surgical History: Procedure Laterality Date ADENOIDECTOMY OTHER SURGICAL HISTORY 03/01/[address] Cao TONSILLECTOMY REVIEW OF SYSTEMS Review of Systems: Review of Systems Constitutional: Negative. HENT: Negative. Eyes: Negative. Respiratory: Negative. Cardiovascular: Negative. Gastrointestinal: Negative. Genitourinary: Negative. Musculoskeletal: Negative. Skin: Negative. Neurological: Negative. All other systems reviewed and are negative. Hematological: Negative. Endocrine: Negative. Allergic/Immunologic: Negative. OBJECTIVE Objective: Physical Exam Constitutional: Appearance: Normal appearance. She is well-developed. Cardiovascular: Rate and Rhythm: Normal rate and regular rhythm. Pulmonary: Effort: Pulmonary effort is normal. Breath sounds: Normal breath sounds. Abdominal: General: Bowel sounds are normal. There is no distension. Palpations: Abdomen is soft. Tenderness: There is no abdominal tenderness. There is no guarding or rebound. Musculoskeletal: General: No swelling. Normal range of motion. Right lower leg: No edema. Left lower leg: No edema. Neurological: Mental Status: She is alert and oriented to person, place, and time. Skin: General: Skin is warm and dry. Psychiatric: Mood and Affect: Mood normal. Behavior: Behavior normal. Vitals and nursing note reviewed. Exam conducted with a nursery attendant present. Vitals: Estimated body mass index is 29.27 kg/m as calculated from the following: Height as of 02/14/22: 5' 6.5 . Weight as of 04/12/24: 184 lb 1.9 oz. BP: No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 [address] PCP - GeneralFamily Medicine03/19/23 Team Status: Inactive Member Role Status Dates George Means MD Primary Care Provider Active Start: June 25, 2024 End: June 25Phillip Larson ProviderActiveStart: June 25, 2024 End: June 25, 2024Team MemberRelationshipSpecialtyStart DateEnd Date George Means MD [address] [place] [address] PCP - GeneralFamily Ecvjcrol89/7/21 Goals (unrecognized section and content) Goals may be documented in a n alternate section Scheduled Active and Recently Administ ered Medications (unrecognized section and content) Medication Order fentaNYL (SUBLIMAZE) injection 100 mcg (COMPLETED) 100 mcg, IntraVENous, ONCE, 1 dose, On Tana 06/16/24 at 0830, If oral and IV narcotics ordered, use oral first and only use IV if oral is ineffective or cannot take oral. Do Not give oral and IV within 1 hour of each other unless specifically ordered. * 0819 (Given - Provider: Emma Souza, DEIDRE) fentaNYL (SUBLIMAZE) injection 100 mcg (COMPLETED) 100 mcg, IntraVENous, ONCE, 1 dose, On Tana 06/16/24 at 1445, If oral and IV narcotics ordered, use oral first and only use IV if oral is ineffective or cannot take oral. Do Not give oral and IV within 1 hour of each other unless specifically ordered. * 1447 (Given - Provider: Siena Zavaleta, DEIDRE) ondansetron (ZOFRAN) injection 4 mg (COMPLETED) 4 mg, IntraVENous, ONCE, 1 dose, On Tana 06/16/24 at 0945 * 0940 (Given - Provider: Emma Souza, DEIDRE) Medication Order/ iopamidol (ISOVUE-370) 76 % injection 75 mL (COMPLETED) 75 mL, IntraVENous, IMG ONCE PRN, 1 dose, Starting on Tana 06/16/24 at 0835, Until Tana 06/16/24 at 0836,Other * 0836 (Given - Provider: Pema Nair) Medication Order// acetaminophen (TYLENOL) tablet 650 mg (COMPLETED) 650 mg, Oral, ONCE, 1 dose, On Tana 06/16/24 at 1630, Maximum dose of acetaminophen is 4000 mg from all sources in 24 hours. * 1643 (Given - Provider: Aminata Christian RN) fentaNYL (SUBLIMAZE) injection 50 mcg (COMPLETED) 50 mcg, IntraVENous, ONCE, 1 dose, On Tana 06/16/24 at 1630, If oral and IV narcotics ordered, use oral first and only use IV if oral is ineffective or cannot take oral. Do Not give oral and IV within 1hour of each other unless specifically ordered. * 1643 (Given - Provider: Aminata Christian RN) Ordered Prescriptions (unrec ognized section and content) PrescriptionSigDispense QuantityRefillsLast FilledStart DateEnd Date oxyCODONE (ROXICODONE) 5 MG immediate release tablet Indications:Closed compression fracture of L2 lumbar vertebra, initial encounter (HCC)Take 1 tablet by mouth every 6 hours as needed for Pain for up to 3 days. Intended supply: 3 days. Take lowest dose possible to manage pain Max Daily Amount: 20 mg 12 tablet /08/2024 methocarbamol (ROBAXIN-750) 750 MG tablet Take 1 tablet by mouth 4 times daily for 10 days 40 tablet gabapentin (NEURONTIN) 300 MG capsule Take 1 capsule by mouth 3 times daily for 10 days. Intended supply: 30 days 30 capsule FOR RECORDS PERTAINING TO PATIENTS WHO ARE [...] BE BASED ON THE PRIMARY CLINICAL RECORDS. [employer] [facility]. provides no warranty or guarantee of the accuracy or completeness of information in this document.
[2025-01-03 17:07] LABS: Hematocrit 42.0 % (36.0-48.0); Hemoglobin 13.9 g/dL (12.0-16.0); Immature Granulocytes Abs Auto 0.02 10^3/uL (0.00-0.03); Immature Granulocytes Pct Auto 0.2 % (0.0-0.5); Lymphocytes Absolute Auto 4.6 10^3/uL (1.2-3.8); Mean Corpuscular HGB Conc 33.1 g/dL (29.9-35.2); Mean Corpuscular Hemoglobin 29.7 pg (26.7-34.0); Mean Corpuscular Volume 89.7 fL (81.0-99.0); Platelet Count 358 10^3/uL (150-450); Red Blood Count 4.68 10^6/uL (4.20-5.40); White Blood Count 12.0 10^3/uL (4.0-11.0)
[2025-01-03 17:43] LABS: Anion Gap 10.3; Blood Urea Nitrogen 10.0 mg/dL (7.0-18.0); Calcium 8.7 mg/dL (8.5-10.1); Carbon Dioxide 26.7 mmol/L (21.0-32.0); Chloride 100 mmol/L (98-107); Estimated GFR (African America >60 (>=60 mL/min/1.73m^2); Estimated GFR (Non-African Ame >60 (>=60 mL/min/1.73m^2); Glucose 121 mg/dL (74-106); Potassium 3.0 mmol/L (3.5-5.1); Sodium 134 mmol/L (136-145)
== END 2025-01-03 16:51 | disposition home or self-care (01) ==
PROVIDERS: PCP Family Medicine; Visit Provider Internal Medicine Cardiovascular Disease
DX: I47.10 Supraventricular tachycardia, unspecified (principal)
CPT/HCPCS: 36415; 80048; 85025